=== PATIENT | female | born 1975 | race Caucasian/White ===

== ENCOUNTER 2018-07-29 22:28 | Inpatient (IN) | payer MEDICAID, OTHER ==
[2018-07-29] MEDS ORDERED: Sodium Chloride 0.9% 1,000 ML IV STA (23:02)
[2018-07-29 23:46] LABS: BASO % 0.7 % (0.0-2.0); EOS # 0.1 K/uL (0.0-0.7); HEMOGLOBIN 12.7 g/dL (11.0-16.0); LYMPH # 1.2 K/uL (1.0-4.3); LYMPH % 26.8 % (20.0-40.0); MEAN CELL VOLUME 104.8 fL (81.0-99.0); MEAN CORPUSCULAR HEMOGLOBIN 35.4 pg (27.0-31.0); MEAN CORPUSCULAR HGB CONC 33.8 g/dL (33.0-37.0); MEAN PLATELET VOLUME 10.8 fL (7.2-11.7); MONO # 0.4 K/uL (0.0-0.8); NEUT # 2.8 K/uL (1.8-7.0); NEUT % 62.5 % (50.0-75.0); RBC 3.59 Mil/uL (3.80-5.20); RED CELL DISTRIBUTION WIDTH 13.6 % (11.5-14.5); WHITE BLOOD COUNT 4.4 K/uL (4.8-10.8)
--- NOTE | 2018-07-30 00:03 | C.PDOC ---
History Of Present Illness 42 y/o F c PMHx HTN, DM BIBEMS after patient witnessed by bystanders stumbling and intoxicated. Patient states she fell but denies any pain or injury from it. She does report palpitations, no other symptoms. She denies any other drug use other than alcohol. Denies headache, dyspnea, chest pain, vomiting, abdominal pain, extremity pain. Time Seen by Provider: 07/29/18 22:34 Chief Complaint (Nursing): Substance Abuse Past Medical History Vital Signs: Last Vital Signs Temp 98.6 F 07/29/18 22:33 Pulse 111 H 07/29/18 22:33 Resp 14 07/29/18 22:33 BP 109/72 07/29/18 22:33 Pulse Ox 99 07/30/18 00:05 - Medical History PMH: Diabetes Denies: Chronic Kidney Disease - [facility] Procedures OTH WOUND IRRIGATION (10/10/13) OTHER LOCAL DESTRUC SKIN (03/14/15) OTHER SKIN & SUBQ I D (01/18/15) VACCINATION NEC (01/18/15) Family History: States: Unknown Family Hx - Social History Hx Tobacco Use: No Hx Alcohol Use: Yes Hx Substance Use: No - Immunization History Hx Tetanus Toxoid Vaccination: No Hx Influenza Vaccination: No Hx Pneumococcal Vaccination: No Review Of Systems Except As Marked, All Systems Reviewed And Found Negative. Constitutional: Negative for: Fever Cardiovascular: Negative for: Chest Pain Physical Exam - Physical Exam Additional Physical Exam Comments: Gen: NAD Head: NC/AT Eyes: PERRL ENT: MMM Neck: No midline tenderness Chest: No tenderness CV: Regular rate Lungs: CTA b/l Abd: Soft, NT Back: No midline tenderness Extremities: No edema. FROM x 4. Skin: No rash Neuro: Alert, no focal deficit ED Course And Treatment - Laboratory Results Result Diagrams: 07/29/18 23:36 07/29/18 23:36 O2 Sat by Pulse Oximetry: 99 Medical Decision Making Medical Decision Making: EKG NSR 99 bpm, no ST/T wave changes. FS found to be high. Patient in Disposition - Disposition Disposition: HOSPITALIZED Disposition Time: 00:18 Condition: GUARDED Forms: [facility] (Khmer) - Clinical Impression Clinical Impression: DKA (diabetic ketoacidoses)
[2018-07-30 00:05] LABS: ALB/GLOB RATIO 2.2 (1.0-2.1); ALBUMIN 4.5 g/dL (3.5-5.0); ALT/SGPT 32 U/L (9-52); AST/SGOT 28 U/L (14-36); BLOOD UREA NITROGEN 9 mg/dL (7-17); CALCIUM 9.8 mg/dl (8.6-10.4); GFR NON-AFRICAN AMERICAN > 60
[2018-07-30] MEDS ORDERED: Sodium Chloride 0.9% 1,000 ML IV STA (00:07)
[2018-07-30 00:56] LABS: VENOUS BLOOD GAS BASE EXCESS -6.3 mmol/L (0.0-2.0); VENOUS BLOOD GAS PCO2 40 mmHg (40-60); VENOUS BLOOD GAS PO2 31 mm/Hg (30-55)
[2018-07-30] MEDS ORDERED: Sodium Chloride 0.9% 1,000 ML IV SCH (01:00)
[2018-07-30] MEDS ORDERED: (Novolog Mix 70/30) Insulin Aspart/Insulin Aspar 100 units/ml SC ONE (01:09)
[2018-07-30] MEDS ORDERED: Insulin Detemir 100 units/ml Vial (Levemir) SC ONE (01:11)
[2018-07-30] MEDS ORDERED: Lactated Ringer's 1,000 ML IV ONE ×2 (01:44→01:45)
[2018-07-30 01:55] LABS: B-TYPE NATRIURETIC PEPTIDE 82.7 pg/mL (0-450)
[2018-07-30] MEDS ORDERED: (Novolog) Insulin Aspart, Recombinant 100 u/ml 10 ml vial SC SCH ×2 (02:00→11:30)
[2018-07-30] MEDS ORDERED: (Novolog) Insulin Aspart, Recombinant 100 u/ml 10 ml vial SC ONE (02:03)
--- NOTE | 2018-07-30 02:07 | CP.PCM.CON ---
History of Present Illness - History of Present Illness History of Present Illness: 42 y/o with pmx of DM (7 years) taking insulin and metformin admitted to [facility] with intoxication (+)ETOH and having underlying DM. Patient was noted to have high BGM and (+)BHB (+)AG 25. Patient denies any nausea, denies any abdominal pain. (+)thirsty ROS: (+)polyuria and polydyspia SH: lost her insurace, does not use her insulin regularly Allergies: NKDA Review of Systems - Review of Systems All systems: reviewed and no additional remarkable complaints except Past Patient History - Infectious Disease Hx of Infectious Diseases: None - Tetanus Immunizations Tetanus Immunization: Unknown - Past Medical History & Family History Past Medical History?: Yes - Past Social History Smoking Status: Light Smoker < 10 Cigarettes Daily - PULMONARY Hx Respiratory Disorders: No - NEUROLOGICAL Hx Neurological Disorder: No - HEENT Hx HEENT Problems: No - RENAL Hx Chronic Kidney Disease: No - ENDOCRINE/METABOLIC Hx Diabetes Mellitus Type 1: Yes - HEMATOLOGICAL/ONCOLOGICAL Hx Blood Disorders: No - INTEGUMENTARY Hx Dermatological Problems: No - MUSCULOSKELETAL/RHEUMATOLOGICAL Hx Falls: No - GASTROINTESTINAL Hx Gastrointestinal Disorders: No - GENITOURINARY/GYNECOLOGICAL Hx Genitourinary Disorders: No - PSYCHIATRIC Hx Substance Use: No - SURGICAL HISTORY Hx Surgeries: No Hx Tubal Ligation: Yes Other/Comment: I&D OF LEFT AXILLA 01/21/15 - ANESTHESIA Hx Anesthesia: No Meds Allergies/Adverse Reactions: Allergies Allergy/AdvReac Type Severity Reaction Status Date / Time No Known Allergies Allergy Verified 07/30/18 04:44 - Medications Medications: Current Medications Sodium Chloride (Sodium Chloride 0.9%) 1,000 mls @ 150 mls/hr IV .Q6H40M [facility] Folic Acid 1 mg/ Multivitamins (/Vitamin C 10 ml/ Dextrose) 1,010.2 mls @ 42 mls/hr IV .Q24H [facility] Lactated Ringer's (Lactated Ringer's) 1,000 mls @ 1,000 mls/hr IV .Q1H ONE Stop: 07/30/18 02:43 Lactated Ringer's (Lactated Ringer's) 1,000 mls @ 1,000 mls/hr IV .Q1H ONE Stop: 07/30/18 02:44 Insulin Aspart (Novolog) 0 unit SC Q4H PARVIZ PRN Reason: Protocol Insulin Aspart (Novolog) 2 unit SC ONCE ONE Stop: 07/30/18 02:04 Thiamine HCl (Vitamin B1 Inj) 200 mg IV Q8H [facility] Stop: 07/31/18 17:31 Physical Exam - Head Exam Head Exam: ATRAUMATIC, NORMAL INSPECTION, NORMOCEPHALIC - Eye Exam Eye Exam: EOMI Pupil Exam: NORMAL ACCOMODATION - ENT Exam ENT Exam: Mucous Membranes Moist - Respiratory Exam Respiratory Exam: Clear to Auscultation Bilateral, NORMAL BREATHING PATTERN - Cardiovascular Exam Cardiovascular Exam: Tachycardia, +S1, +S2 - Extremities Exam Extremities exam: Positive for: pedal edema - Neurological Exam Neurological exam: Alert, CN II-XII Intact, Oriented x3 Results - Vital Signs Recent Vital Signs: Last Vital Signs Temp 98.6 F 07/29/18 22:33 Pulse 111 H 07/29/18 22:33 Resp 14 07/29/18 22:33 BP 109/72 07/29/18 22:33 Pulse Ox 99 07/30/18 00:18 - Labs Result Diagrams: 07/30/18 12:26 07/30/18 09:10 Labs: Laboratory Results - last 24 hr 07/29/18 07/29/18 07/29/18 22:57 23:36 23:36 WBC 4.4 L RBC 3.59 L Hgb 12.7 Hct 37.7 MCV 104.8 H D MCH 35.4 H MCHC 33.8 RDW 13.6 Plt Count 138 MPV 10.8 Neut % (Auto) 62.5 Lymph % (Auto) 26.8 [place] % (Auto) 8.0 Eos % (Auto) 2.0 Baso % (Auto) 0.7 Neut # (Auto) 2.8 Lymph # (Auto) 1.2 [place] # (Auto) 0.4 Eos # (Auto) 0.1 Baso # (Auto) 0.0 pO2 VBG pH VBG pCO2 VBG HCO3 VBG Total CO2 VBG O2 Sat (Calc) VBG Base Excess VBG Potassium Glucose Lactate Crit Value Called To Crit Value Called By Crit Value Read Back Blood Gas Notified Time Sodium 140 Potassium 4.2 Chloride 102 Carbon Dioxide 17 L Anion Gap 25 H BUN 9 Creatinine 0.6 L Est GFR ( Amer) > 60 Est GFR (Non-Af Amer) > 60 POC Glucose (mg/dL) 470 H* Random Glucose 611 H* D Calcium 9.8 Magnesium 2.0 Total Bilirubin 0.4 AST 28 ALT 32 Alkaline Phosphatase 96 NT-Pro-B Natriuret Pep Total Protein 6.6 Albumin 4.5 Globulin 2.1 L Albumin/Globulin Ratio 2.2 H Beta HCG, Quant Venous Blood Potassium Alcohol, Quantitative 263 H B-Hydroxybutyrate 2.74 H 07/29/18 07/30/18 07/30/18 23:36 00:39 01:36 WBC RBC Hgb Hct MCV MCH MCHC RDW Plt Count MPV Neut % (Auto) Lymph % (Auto) [place] % (Auto) Eos % (Auto) Baso % (Auto) Neut # (Auto) Lymph # (Auto) [place] # (Auto) Eos # (Auto) Baso # (Auto) pO2 31 VBG pH 7.30 L VBG pCO2 40 VBG HCO3 18.8 VBG Total CO2 20.9 L VBG O2 Sat (Calc) 54.8 VBG Base Excess -6.3 L VBG Potassium 4.0 Glucose 510 H* D Lactate 2.8 H Crit Value Called To Smith reddy rn Crit Value Called By Tran ortega rt Crit Value Read Back Y Blood Gas Notified Time 56 Sodium 142.0 Potassium Chloride 105.0 Carbon Dioxide Anion Gap BUN Creatinine Est GFR ( Amer) Est GFR (Non-Af Amer) POC Glucose (mg/dL) Random Glucose Calcium Magnesium Total Bilirubin AST ALT Alkaline Phosphatase NT-Pro-B Natriuret Pep 82.7 Total Protein Albumin Globulin Albumin/Globulin Ratio Beta HCG, Quant < 2.39 Venous Blood Potassium 4.0 Alcohol, Quantitative B-Hydroxybutyrate 07/30/18 01:56 WBC RBC Hgb Hct MCV MCH MCHC RDW Plt Count MPV Neut % (Auto) Lymph % (Auto) [place] % (Auto) Eos % (Auto) Baso % (Auto) Neut # (Auto) Lymph # (Auto) [place] # (Auto) Eos # (Auto) Baso # (Auto) pO2 VBG pH VBG pCO2 VBG HCO3 VBG Total CO2 VBG O2 Sat (Calc) VBG Base Excess VBG Potassium Glucose Lactate Crit Value Called To Crit Value Called By Crit Value Read Back Blood Gas Notified Time Sodium Potassium Chloride Carbon Dioxide Anion Gap BUN Creatinine Est GFR ( Amer) Est GFR (Non-Af Amer) POC Glucose (mg/dL) 456 H* Random Glucose Calcium Magnesium Total Bilirubin AST ALT Alkaline Phosphatase NT-Pro-B Natriuret Pep Total Protein Albumin Globulin Albumin/Globulin Ratio Beta HCG, Quant Venous Blood Potassium Alcohol, Quantitative B-Hydroxybutyrate Assessment & Plan - Assessment and Plan (Free Text) Assessment: UNcontrolled DM with DKA: will restart home dosage of insulin 40 lantus (+) 10 untis premeal lispro, check HBA1c, and TSH, continue IV hydration -check BGM at 4am (if gap not closed will admit to ICU for insulin ggt) -ETOH abuse: MCV hish: start thiamine, IV bananna bag -continue dvt/put ppx Patient remains hemodynamically stable, not on telemetry in ER. -d/w ER physician. cc time 32 minutes co-ordinating care of above patient - Date & Time Date: 07/30/18 Time: 02:10
[2018-07-30 02:20] LABS: BARBITURATES, UR NEGATIVE (NEGATIVE); BENZODIAZEPINES, UR NEGATIVE (NEGATIVE); OPIATES, UR NEGATIVE (NEGATIVE); PHENCYCLIDINE, UR NEGATIVE (NEGATIVE)
[2018-07-30] MEDS: Thiamine 100 mg/ml Inj IV SCH ×3 (02:54→17:33)
[2018-07-30 04:14] LABS: MEAN CELL VOLUME 103.4 fL (81.0-99.0); MEAN CORPUSCULAR HEMOGLOBIN 35.1 pg (27.0-31.0); MEAN PLATELET VOLUME 11.7 fL (7.2-11.7); RBC 3.42 Mil/uL (3.80-5.20); RED CELL DISTRIBUTION WIDTH 13.7 % (11.5-14.5); WHITE BLOOD COUNT 4.6 K/uL (4.8-10.8)
[2018-07-30 04:30] LABS: ALB/GLOB RATIO 1.6 (1.0-2.1); ALT/SGPT 25 U/L (9-52); AST/SGOT 55 U/L (14-36); BLOOD UREA NITROGEN 8 mg/dL (7-17); CALCIUM 8.2 mg/dl (8.6-10.4); GFR NON-AFRICAN AMERICAN > 60
[2018-07-30] MEDS: Folic Acid 1 MG, Multivitamin (MVI) 10 ML in Dextrose 5% In Water 1,000 ML IV SCH (05:00)
[2018-07-30] MEDS ORDERED: Insulin Human Regular 100 UNIT in Sodium Chloride 0.9% 99 ML IV SCH ×2 (05:15→07:00)
[2018-07-30] MEDS: Dextrose 5%/0.45% NS 1,000 ML IV SCH ×2 (05:58→15:36)
[2018-07-30] MEDS ORDERED: Dextrose 50% SYRINGE Inj (50 ml) IV STA (08:43)
[2018-07-30] MEDS ORDERED: Dextrose 50% SYRINGE Inj (50 ml) IV PRN (08:44)
[2018-07-30] MEDS ORDERED: Glucagon Recombinant 1 mg Inj IM PRN (08:44)
[2018-07-30] MEDS ORDERED: Dextrose 50% SYRINGE Inj (50 ml) ONE (08:49)
[2018-07-30 09:31] LABS: ALB/GLOB RATIO 1.5 (1.0-2.1); ALBUMIN 3.3 g/dL (3.5-5.0); ALT/SGPT 33 U/L (9-52); AST/SGOT 24 U/L (14-36); BLOOD UREA NITROGEN 7 mg/dL (7-17); CALCIUM 8.4 mg/dl (8.6-10.4); GFR NON-AFRICAN AMERICAN > 60
[2018-07-30] MEDS ORDERED: Potassium Chloride 20 mEq/15 ml LIQ UD PO ONE (10:00)
[2018-07-30] MEDS: Pantoprazole 40 mg EC Tab PO SCH (11:07)
[2018-07-30] MEDS ORDERED: Potassium Phosphate 15 MMOLE in Dextrose 5% In Water 250 ML IVPB ONE (11:22)
[2018-07-30] MEDS ORDERED: (Novolog Mix 70/30) Insulin Aspart/Insulin Aspar 100 units/ml SC SCH (11:30)
[2018-07-30] MEDS: Magnesium Sulfate 1 gm in D5W 1 GM/100 ML BAG IVPB SCH ×2 (11:52→12:24)
[2018-07-30 12:30] LABS: BASO % 0.6 % (0.0-2.0); HEMOGLOBIN 11.5 g/dL (11.0-16.0); LYMPH # 1.1 K/uL (1.0-4.3); MONO # 0.7 K/uL (0.0-0.8); WHITE BLOOD COUNT 5.8 K/uL (4.8-10.8)
[2018-07-30 12:37] LABS: EOS % 0.7 % (0.0-4.0); LYMPH % 19.1 % (20.0-40.0); MEAN CELL VOLUME 102.6 fL (81.0-99.0); MEAN CORPUSCULAR HEMOGLOBIN 35.9 pg (27.0-31.0); MEAN CORPUSCULAR HGB CONC 34.9 g/dL (33.0-37.0); MEAN PLATELET VOLUME 10.8 fL (7.2-11.7); MONO % 11.8 % (0.0-10.0); NEUT % 67.8 % (50.0-75.0); NRBC % 0.2 % (0.0-2.0); RBC 3.22 Mil/uL (3.80-5.20); RED CELL DISTRIBUTION WIDTH 13.5 % (11.5-14.5)
--- NOTE | 2018-07-30 12:54 | RAD ---
Date of service: 07/30/2018 HISTORY: dka COMPARISON: Comparison chest 04/10/2013 FINDINGS: LUNGS: Poor inspiration with low lung volumes, crowded bronchovascular markings and mild bibasilar atelectasis. PLEURA: No significant pleural effusion identified, no pneumothorax apparent. CARDIOVASCULAR: Heart appears upper limits of normal/ borderline enlarged likely due to AP positioning and poor inspiration. Incidental note made of a radiopaque density overlying the aortic arch which may be overlying skin surface artifact. Clinical correlation recommended to exclude metallic surgical clip or foreign body OSSEOUS STRUCTURES: No significant abnormalities. VISUALIZED UPPER ABDOMEN: Normal. OTHER FINDINGS: None. IMPRESSION: Poor inspiration with low lung volumes, crowded bronchovascular markings and mild bibasilar atelectasis. See above discussion for additional details, findings and recommendations
[2018-07-30] MEDS: (Novolog) Insulin Aspart, Recombinant 100 u/ml 10 ml vial SC SCH ×3 (13:24→22:00)
--- NOTE | 2018-07-30 14:33 | CP.PCM.HP ---
History of Present Illness - History of Present Illness History of Present Illness: COMPREHENSIVE HISTORY & PHYSICAL EXAM HPI Patient was brought to the emergency room agitated and slightly confused. Evaluation showed the patient had a sugar of 661 with positive ketones beta hydroxy butyric acid positive. Patient was admitted in ICU for DKA. As per the patient patient had some wine before she went for the dinner and during the dinner. Patient took some unknown amount of alcohol and since then patient became more disoriented and agitated. Patient has a history of diabetes on insulin recently has been noncompliant PAST HIST. PERSONAL HIST: Smoking. N Alcohol. N Allergy N Travel_- . FAMILY HIST : ROS : Constitutional: Negative for weight change, chills, night sweats, fatigue and usage of assist device. Eyes: Negative for redness, swelling, itching, discharge, vision changes, blurry vision, double vision, glaucoma, cataracts, Ears: Negative for hearing loss, ringing, , tinnitus, vertigo Nose: Negative for rhinorrhea, stuffiness, sniffing, itching, postnasal drip, discoloration, nasal congestion and epistaxis. Throat: Negative for throat clearing, sore throat, hoarseness, difficulty swallowing and difficulty speaking. Respiratory: Negative for cough, , sputum production, chest tightness, wheezing, pleuritic chest pain ,daytime somnolence, chronic cough, hemoptysis, snoring at night, Cardiovascular: Negative for chest pain, palpitations, orthopnea, PND, Edema of legs, leg cramps, angina, claudication, , irregular heartbeat, Neurology: Negative for irritability, muscle weakness, numbness and tingling, seizures, tremors, migraines, slurred speech, syncope, memory loss, mood changes , recurrent headaches Gastrointestinal: Negative for difficulty swallowing, diarrhea, constipation, black stools, rectal bleeding, nausea, flatulence, reflux, poor appetite, changes in bowel habits, abdominal pain Genitourinary: Negative for frequent urination, hematuria, discharge, incontinence, urinary retention, frequent UTI, Psychiatric: Negative for depression, anxiety/panic, suicidal tendencies, Musculoskeletal: Negative for swollen joints, back pain, , neck pain, morning stiffness of joints, . Skin: Negative for rash, ulcers, itching, dry skin and pigmented lesions. P/E: Constitutional: Appears stated age and in no apparent distress. Head: Normocephalic. Ears: External ear canals patent without inflammation. Tympanic membranes intact with normal light reflex and landmark. Eyes: Pupils are central, bilaterally equal, symmetrical and reacts to light with normal movements and no icterus or pallor. Nose: External nares are patent. Mucosa is pink Mouth-Throat: Good general appearance and condition. No post-pharyngeal/oropharyngeal erythema and tonsillar hypertrophy. Good dental hygiene. Neck-Lymphatic: Neck is supple with normal ROM, no thyromegaly, lymph nodes or masses. JVD is normal with no carotid bruit. Lungs: Clear to percussion and auscultation with bilateral normal air entry. Cardiovascular: S1 and S2 are normal with no murmurs, gallops and rub. GI Exam: No hepatomegaly. Abdomen is soft and non-tender. No Organomegaly , masses or hernias are evident and bowel sounds are normal and active. Neurology: Higher function and all cranial nerves intact, with no gross motor or sensory deficit. Superficial and deep reflexes are normal with downwards planters. No cerebellar deficit with normal gait. Musculoskeletal: No tender spots with normal curvature of the spine with no swelling or restricted ROM of the small and large joints. Extremities: Homans sign absent. Intact pulses with no pitting edema, calf tenderness or skin color changes. Skin: No rash, eruptions or abnormal skin pigmentation LAB/RADIOLOGY: ASSESMENT : Diabetic ketoacidosis with excess amount of alcohol ingestion. History of diabetes on insulin PLAN: Continue treatment as outlined on the order sheet Present on Admission - Present on Admission Any Indicators Present on Admission: No Past Patient History - Infectious Disease Hx of Infectious Diseases: None - Tetanus Immunizations Tetanus Immunization: Unknown - Past Medical History & Family History Past Medical History?: Yes - Past Social History Smoking Status: Light Smoker < 10 Cigarettes Daily - CARDIAC Hx Cardiac Disorders: Yes Hx Hypertension: Yes - PULMONARY Hx Respiratory Disorders: No - NEUROLOGICAL Hx Neurological Disorder: No - HEENT Hx HEENT Problems: No - RENAL Hx Chronic Kidney Disease: No - ENDOCRINE/METABOLIC Hx Endocrine Disorders: Yes Hx Diabetes Mellitus Type 1: Yes - HEMATOLOGICAL/ONCOLOGICAL Hx Blood Disorders: No - INTEGUMENTARY Hx Dermatological Problems: No - MUSCULOSKELETAL/RHEUMATOLOGICAL Hx Musculoskeletal Disorders: Yes Hx Falls: Yes - GASTROINTESTINAL Hx Gastrointestinal Disorders: No - GENITOURINARY/GYNECOLOGICAL Hx Genitourinary Disorders: No - PSYCHIATRIC Hx Psychophysiologic Disorder: No Hx Substance Use: No - SURGICAL HISTORY Hx Surgeries: Yes Hx Tubal Ligation: Yes Other/Comment: I&D OF LEFT AXILLA 01/21/15 - ANESTHESIA Hx Anesthesia: Yes Hx Anesthesia Reactions: No Hx Malignant Hyperthermia: No Has any member of the family had a problem w/ anesthesia?: No Meds Allergies/Adverse Reactions: Allergies Allergy/AdvReac Type Severity Reaction Status Date / Time No Known Allergies Allergy Verified 07/30/18 04:44 Results - Vital Signs Recent Vital Signs: Last Vital Signs Temp 98.5 F 07/30/18 05:45 Pulse 108 H 07/30/18 06:20 Resp 20 07/30/18 06:20 BP 142/79 07/30/18 05:42 Pulse Ox 98 07/30/18 06:20 - Labs Result Diagrams: 07/30/18 12:26 07/30/18 09:10 Labs: Laboratory Results - last 24 hr 07/29/18 07/29/18 07/29/18 22:57 23:36 23:36 WBC 4.4 L RBC 3.59 L Hgb 12.7 Hct 37.7 MCV 104.8 H D MCH 35.4 H MCHC 33.8 RDW 13.6 Plt Count 138 MPV 10.8 Neut % (Auto) 62.5 Lymph % (Auto) 26.8 [place] % (Auto) 8.0 Eos % (Auto) 2.0 Baso % (Auto) 0.7 Neut # (Auto) 2.8 Lymph # (Auto) 1.2 [place] # (Auto) 0.4 Eos # (Auto) 0.1 Baso # (Auto) 0.0 pO2 VBG pH VBG pCO2 VBG HCO3 VBG Total CO2 VBG O2 Sat (Calc) VBG Base Excess VBG Potassium Glucose Lactate Crit Value Called To Crit Value Called By Crit Value Read Back Blood Gas Notified Time Sodium 140 Potassium 4.2 Chloride 102 Carbon Dioxide 17 L Anion Gap 25 H BUN 9 Creatinine 0.6 L Est GFR ( Amer) > 60 Est GFR (Non-Af Amer) > 60 POC Glucose (mg/dL) 470 H* Random Glucose 611 H* D Calcium 9.8 Phosphorus Magnesium 2.0 Total Bilirubin 0.4 AST 28 ALT 32 Alkaline Phosphatase 96 NT-Pro-B Natriuret Pep Total Protein 6.6 Albumin 4.5 Globulin 2.1 L Albumin/Globulin Ratio 2.2 H TSH 3rd Generation Beta HCG, Quant Venous Blood Potassium Urine Opiates Screen Urine Methadone Screen Ur Barbiturates Screen Ur Phencyclidine Scrn Ur Amphetamines Screen U Benzodiazepines Scrn U Oth Cocaine Metabols U Cannabinoids Screen Alcohol, Quantitative 263 H B-Hydroxybutyrate 2.74 H 07/29/18 07/30/18 07/30/18 23:36 00:39 01:36 WBC RBC Hgb Hct MCV MCH MCHC RDW Plt Count MPV Neut % (Auto) Lymph % (Auto) [place] % (Auto) Eos % (Auto) Baso % (Auto) Neut # (Auto) Lymph # (Auto) [place] # (Auto) Eos # (Auto) Baso # (Auto) pO2 31 VBG pH 7.30 L VBG pCO2 40 VBG HCO3 18.8 VBG Total CO2 20.9 L VBG O2 Sat (Calc) 54.8 VBG Base Excess -6.3 L VBG Potassium 4.0 Glucose 510 H* D Lactate 2.8 H Crit Value Called To Smith reddy rn Crit Value Called By Tran ortega rt Crit Value Read Back Y Blood Gas Notified Time 56 Sodium 142.0 Potassium Chloride 105.0 Carbon Dioxide Anion Gap BUN Creatinine Est GFR ( Amer) Est GFR (Non-Af Amer) POC Glucose (mg/dL) Random Glucose Calcium Phosphorus Magnesium Total Bilirubin AST ALT Alkaline Phosphatase NT-Pro-B Natriuret Pep 82.7 Total Protein Albumin Globulin Albumin/Globulin Ratio TSH 3rd Generation 1.07 Beta HCG, Quant < 2.39 Venous Blood Potassium 4.0 Urine Opiates Screen Urine Methadone Screen Ur Barbiturates Screen Ur Phencyclidine Scrn Ur Amphetamines Screen U Benzodiazepines Scrn U Oth Cocaine Metabols U Cannabinoids Screen Alcohol, Quantitative B-Hydroxybutyrate 07/30/18 07/30/18 07/30/18 01:56 01:58 04:09 WBC 4.6 L RBC 3.42 L Hgb 12.0 Hct 35.4 MCV 103.4 H MCH 35.1 H MCHC 34.0 RDW 13.7 Plt Count 161 MPV 11.7 Neut % (Auto) Lymph % (Auto) [place] % (Auto) Eos % (Auto) Baso % (Auto) Neut # (Auto) Lymph # (Auto) [place] # (Auto) Eos # (Auto) Baso # (Auto) pO2 VBG pH VBG pCO2 VBG HCO3 VBG Total CO2 VBG O2 Sat (Calc) VBG Base Excess VBG Potassium Glucose Lactate Crit Value Called To Crit Value Called By Crit Value Read Back Blood Gas Notified Time Sodium Potassium Chloride Carbon Dioxide Anion Gap BUN Creatinine Est GFR ( Amer) Est GFR (Non-Af Amer) POC Glucose (mg/dL) 456 H* Random Glucose Calcium Phosphorus Magnesium Total Bilirubin AST ALT Alkaline Phosphatase NT-Pro-B Natriuret Pep Total Protein Albumin Globulin Albumin/Globulin Ratio TSH 3rd Generation Beta HCG, Quant Venous Blood Potassium Urine Opiates Screen Negative Urine Methadone Screen Negative Ur Barbiturates Screen Negative Ur Phencyclidine Scrn Negative Ur Amphetamines Screen Negative U Benzodiazepines Scrn Negative U Oth Cocaine Metabols Negative U Cannabinoids Screen Negative Alcohol, Quantitative B-Hydroxybutyrate 07/30/18 07/30/18 07/30/18 04:09 05:56 06:53 WBC RBC Hgb Hct MCV MCH MCHC RDW Plt Count MPV Neut % (Auto) Lymph % (Auto) [place] % (Auto) Eos % (Auto) Baso % (Auto) Neut # (Auto) Lymph # (Auto) [place] # (Auto) Eos # (Auto) Baso # (Auto) pO2 VBG pH VBG pCO2 VBG HCO3 VBG Total CO2 VBG O2 Sat (Calc) VBG Base Excess VBG Potassium Glucose Lactate Crit Value Called To Crit Value Called By Crit Value Read Back Blood Gas Notified Time Sodium 144 Potassium 4.9 Chloride 112 H Carbon Dioxide 17 L Anion Gap 20 BUN 8 Creatinine 0.3 L Est GFR ( Amer) > 60 Est GFR (Non-Af Amer) > 60 POC Glucose (mg/dL) 222 H 204 H Random Glucose 242 H Calcium 8.2 L Phosphorus Magnesium Total Bilirubin 1.3 AST 55 H D ALT 25 Alkaline Phosphatase 76 NT-Pro-B Natriuret Pep Total Protein 6.5 Albumin 4.0 Globulin 2.5 Albumin/Globulin Ratio 1.6 TSH 3rd Generation Beta HCG, Quant Venous Blood Potassium Urine Opiates Screen Urine Methadone Screen Ur Barbiturates Screen Ur Phencyclidine Scrn Ur Amphetamines Screen U Benzodiazepines Scrn U Oth Cocaine Metabols U Cannabinoids Screen Alcohol, Quantitative B-Hydroxybutyrate 07/30/18 07/30/1807/30/18 07:59 08:42 09:10 WBC RBC Hgb Hct MCV MCH MCHC RDW Plt Count MPV Neut % (Auto) Lymph % (Auto) [place] % (Auto) Eos % (Auto) Baso % (Auto) Neut # (Auto) Lymph # (Auto) [place] # (Auto) Eos # (Auto) Baso # (Auto) pO2 VBG pH VBG pCO2 VBG HCO3 VBG Total CO2 VBG O2 Sat (Calc) VBG Base Excess VBG Potassium Glucose Lactate Crit Value Called To Crit Value Called By Crit Value Read Back Blood Gas Notified Time Sodium 141 Potassium 3.4 L Chloride 107 Carbon Dioxide 25 Anion Gap 13 BUN 7 Creatinine 0.4 L Est GFR ( Amer) > 60 Est GFR (Non-Af Amer) > 60 POC Glucose (mg/dL) 119 H 54 L Random Glucose 156 H Calcium 8.4 L Phosphorus 1.7 L Magnesium 1.4 L Total Bilirubin 0.3 AST 24 ALT 33 Alkaline Phosphatase 67 NT-Pro-B Natriuret Pep Total Protein 5.5 L Albumin 3.3 L Globulin 2.2 Albumin/Globulin Ratio 1.5 TSH 3rd Generation Beta HCG, Quant Venous Blood Potassium Urine Opiates Screen Urine Methadone Screen Ur Barbiturates Screen Ur Phencyclidine Scrn Ur Amphetamines Screen U Benzodiazepines Scrn U Oth Cocaine Metabols U Cannabinoids Screen Alcohol, Quantitative B-Hydroxybutyrate 07/30/18 07/30/18 07/30/18 09:11 10:00 10:57 WBC RBC Hgb Hct MCV MCH MCHC RDW Plt Count MPV Neut % (Auto) Lymph % (Auto) [place] % (Auto) Eos % (Auto) Baso % (Auto) Neut # (Auto) Lymph # (Auto) [place] # (Auto) Eos # (Auto) Baso # (Auto) pO2 VBG pH VBG pCO2 VBG HCO3 VBG Total CO2 VBG O2 Sat (Calc) VBG Base Excess VBG Potassium Glucose Lactate Crit Value Called To Crit Value Called By Crit Value Read Back Blood Gas Notified Time Sodium Potassium Chloride Carbon Dioxide Anion Gap BUN Creatinine Est GFR ( Amer) Est GFR (Non-Af Amer) POC Glucose (mg/dL) 141 H 99 138 H Random Glucose Calcium Phosphorus Magnesium Total Bilirubin AST ALT Alkaline Phosphatase NT-Pro-B Natriuret Pep Total Protein Albumin Globulin Albumin/Globulin Ratio TSH 3rd Generation Beta HCG, Quant Venous Blood Potassium Urine Opiates Screen Urine Methadone Screen Ur Barbiturates Screen Ur Phencyclidine Scrn Ur Amphetamines Screen U Benzodiazepines Scrn U Oth Cocaine Metabols U Cannabinoids Screen Alcohol, Quantitative B-Hydroxybutyrate 07/30/18 07/30/18 12:00 12:26 WBC 5.8 RBC 3.22 L Hgb 11.5 Hct 33.0 L MCV 102.6 H MCH 35.9 H MCHC 34.9 RDW 13.5 Plt Count 133 MPV 10.8 Neut % (Auto) 67.8 Lymph % (Auto) 19.1 L [place] % (Auto) 11.8 H Eos % (Auto) 0.7 Baso % (Auto) 0.6 Neut # (Auto) 4.0 Lymph # (Auto) 1.1 [place] # (Auto) 0.7 Eos # (Auto) 0.0 Baso # (Auto) 0.0 pO2 VBG pH VBG pCO2 VBG HCO3 VBG Total CO2 VBG O2 Sat (Calc) VBG Base Excess VBG Potassium Glucose Lactate Crit Value Called To Crit Value Called By Crit Value Read Back Blood Gas Notified Time Sodium Potassium Chloride Carbon Dioxide Anion Gap BUN Creatinine Est GFR ( Amer) Est GFR (Non-Af Amer) POC Glucose (mg/dL) 150 H Random Glucose Calcium Phosphorus Magnesium Total Bilirubin AST ALT Alkaline Phosphatase NT-Pro-B Natriuret Pep Total Protein Albumin Globulin Albumin/Globulin Ratio TSH 3rd Generation Beta HCG, Quant Venous Blood Potassium Urine Opiates Screen Urine Methadone Screen Ur Barbiturates Screen Ur Phencyclidine Scrn Ur Amphetamines Screen U Benzodiazepines Scrn U Oth Cocaine Metabols U Cannabinoids Screen Alcohol, Quantitative B-Hydroxybutyrate
--- NOTE | 2018-07-30 16:01 | CP.CCUPN ---
Addendum entered and electronically signed by Rodrigo Mejía DO 07/30/18 16:32: Correction to Physical Exam: Lower Extremity: Positive for: Normal Inspection, NORMAL PULSES, Normal ROM, * Edema (trace - +1 in bilateral LE from feet to bottom 1/3rd of shins)*. Negative for: CALF TENDERNESS, Cyanosis, Tenderness, Erythema Original Note: <Rodrigo Mejía - Last Filed: 07/30/18 15:58> CCU Subjective - Physician Review Subjective (Free Text): 07/30/18 15:58 Patient seen and examined at bedside in ICU. After initiation of Insulin Drip this AM, patient's gap rapidly closed, but patient became rapidly hypoglycemic to 50's, despite being on D5 IV fluids; resolved by turning off drip and giving x1 amp D50 stat. Transitioned to home dose of Levemir 40 units qHS, and Medium dose Aspart sliding scale. Patient was tremulous and feeling malaised during the acutely hypoglycemic episode, but no other complaints prior to or after event. Resting comfortably in bed on re-examination. CCU Objective - Vital Signs / Intake & Output Intake and Output (Last 8hrs): Intake & Output 07/30/18 07/30/18 07/30/18 06:59 14:59 22:59 Intake Total 144 3197.5 204.5 Output Total 350 Balance 144 2847.5 204.5 Weight 70.987 kg Intake: Intake, IV Amount 144 1627.5 204.5 Left AC sideport 2 191.5 62.5 Right AC 42 336 42 left AC 100 800 100 piggyback right AC 300 Oral 0 1570 0 Output: Urine 350 Urine, Voided 350 Other: # Voids Urine, Voided 0 1 # Bowel Movements 0 0 - Physical Exam Head: Positive for: Atraumatic, Normocephalic Pupils: Negative for: Non-Reactive, Pinpoint Extroacular Muscles: Positive for: EOMI Conjunctiva: Positive for: Normal. Negative for: Injected, Icteric Mouth: Positive for: Moist Mucous Membranes, Normal Lips, Normal Tounge. Negative for: Dry, Drooling Pharnyx: Negative for: Muffled/Hoarse Voice, Strider Nose (External): Positive for: Atraumatic. Negative for: Abrasion, Contusion, Laceration Nose (Internal): Positive for: No Active Bleeding. Negative for: Epistaxis Neck: Positive for: Normal Range of Motion, Trachea Midline. Negative for: JVD Respiratory/Chest: Positive for: Clear to Auscultation, Good Air Exchange. Negative for: Respiratory Distress, Accessory Muscle Use, Wheezes, Rales, Rhonchi Cardiovascular: Positive for: Peripheal Pulses Present (+2 radials bilaterally, faintly palpable bilateral dorsalis pedis due to mild LE edema), Tachycardic. Negative for: Regular Rate and Rhythm, Irregular Rhythm, Bradycardic Abdomen: Positive for: Normal Bowel Sounds. Negative for: Tenderness, Distention Upper Extremity: Positive for: Normal Inspection, Normal ROM, NORMAL PULSES. Negative for: Cyanosis, Edema, Tenderness, Swelling, Erythema, Deformity Lower Extremity: Positive for: Normal Inspection, NORMAL PULSES, Normal ROM. Negative for: Edema, CALF TENDERNESS, Cyanosis, Tenderness, Swelling, Erythema Neurological: Positive for: GCS=15, Speech Normal, Motor Func Grossly Intact Skin: Positive for: Warm, Dry, Normal Color. Negative for: Rashes Psychiatric: Positive for: Alert, Oriented x 3 - Medications Active Medications: Active Medications Generic Name Dose Route Start Last Admin Trade Name Freq PRN Reason Stop Dose Admin Dextrose 0 ml 07/30/18 08:44 Dextrose 50% Inj IV STAT PRN Hypoglycemia Protocol Protocol Dextrose 0 gm 07/30/18 08:44 Glutose 15 PO ONCE PRN Hypoglycemia Protocol Protocol Glucagon 0 mg 07/30/18 08:44 Glucagen Diagnostic Kit IM STAT PRN Hypoglycemia Protocol Protocol Folic Acid 1 mg/ Multivitamins 1,010.2 mls @ 42 mls/hr 07/30/18 01:30 05:00 /Vitamin C 10 ml/ Dextrose IV 42 mls/hr .Q24H PARVIZ Administration Dextrose/Sodium Chloride 1,000 mls @ 100 mls/hr 07/30/18 05:15 07/30/18 15:36 Dextrose 5%/0.45% Ns 1000 Ml IV 100 mls/hr .Q10H PARVIZ Administration Dextrose 1,000 mls @ 0 mls/hr 07/30/18 08:44 Dextrose 5% In Water 1000 Ml IV .Q0M PRN Hypoglycemia Protocol Protocol Per Protocol Potassium Phosphate 15 mmole/ 255 mls @ 42.5 mls/hr 07/30/18 11:22 07/30/18 12:13 Dextrose IVPB 07/30/18 17:21 42.5 mls/hr ONCE ONE Administration Insulin Aspart 0 unit 07/30/18 13:16 07/30/18 13:24 Novolog SC 3 unit ACHS [facility] Administration Protocol Insulin Detemir 40 unit 07/30/18 22:00 Levemir SC HS PARVIZ Pantoprazole Sodium 40 mg 07/30/18 10:30 07/30/18 11:07 Protonix Ec Tab PO 40 mg DAILY PAR[facility]Z Administration Thiamine HCl 200 mg 07/30/18 01:30 07/30/18 10:16 Vitamin B1 Inj IV 07/31/18 17:31 200 mg Q8H PARVIZ Administration - Patient Studies Lab Studies: Lab Studies 07/30/18 07/30/18 07/30/18 Range/Units 12:26 12:00 10:57 WBC 5.8 (4.8-10.8) K/uL RBC 3.22 L (3.80-5.20) Mil/uL Hgb 11.5 (11.0-16.0) g/dL Hct 33.0 L (34.0-47.0) % MCV 102.6 H (81.0-99.0) fL MCH 35.9 H (27.0-31.0) pg MCHC 34.9 (33.0-37.0) g/dL RDW 13.5 (11.5-14.5) % Plt Count 133 (130-400) K/uL MPV 10.8 (7.2-11.7) fL Neut % (Auto) 67.8 (50.0-75.0) % Lymph % (Auto) 19.1 L (20.0-40.0) % Sevier % (Auto) 11.8 H (0.0-10.0) % Eos % (Auto) 0.7 (0.0-4.0) % Baso % (Auto) 0.6 (0.0-2.0) % Neut # (Auto) 4.0 (1.8-7.0) K/uL Lymph # (Auto) 1.1 (1.0-4.3) K/uL Sevier # (Auto) 0.7 (0.0-0.8) K/uL Eos # (Auto) 0.0 (0.0-0.7) K/uL Baso # (Auto) 0.0 (0.0-0.2) K/uL pO2 (30-55) mm/Hg VBG pH (7.32-7.43) VBG pCO2 (40-60) mmHg VBG HCO3 mmol/L VBG Total CO2 (22-28) mmol/L VBG O2 Sat (Calc) (40-65) % VBG Base Excess (0.0-2.0) mmol/L VBG Potassium (3.6-5.2) mmol/L Glucose (65-105) mg/dl Lactate (0.7-2.1) mmol/L Crit Value Called To Crit Value Called By Crit Value Read Back Blood Gas Notified Time Sodium (132-148) mmol/L Potassium (3.6-5.2) mmol/L Chloride (98-107) mmol/L Carbon Dioxide (22-30) mmol/L Anion Gap (10-20) BUN (7-17) mg/dL Creatinine (0.7-1.2) mg/dL Est GFR ( Amer) Est GFR (Non-Af Amer) POC Glucose (mg/dL) 150 H 138 H (65-110) mg/dL Random Glucose (65-105) mg/dL Calcium (8.6-10.4) mg/dl Phosphorus (2.5-4.5) mg/dL Magnesium (1.6-2.3) mg/dL Total Bilirubin (0.2-1.3) mg/dL AST (14-36) U/L ALT (9-52) U/L Alkaline Phosphatase (38-126) U/L NT-Pro-B Natriuret Pep (0-450) pg/mL Total Protein (6.3-8.3) g/dL Albumin (3.5-5.0) g/dL Globulin (2.2-3.9) gm/dL Albumin/Globulin Ratio (1.0-2.1) TSH 3rd Generation (0.46-4.68) mIU/L Beta HCG, Quant mIU/ML Venous Blood Potassium (3.6-5.2) mmol/L Urine Opiates Screen (NEGATIVE) Urine Methadone Screen (NEGATIVE) Ur Barbiturates Screen (NEGATIVE) Ur Phencyclidine Scrn (NEGATIVE) Ur Amphetamines Screen (NEGATIVE) U Benzodiazepines Scrn (NEGATIVE) U Oth Cocaine Metabols (NEGATIVE) U Cannabinoids Screen (NEGATIVE) Alcohol, Quantitative (0-10) mg/dl B-Hydroxybutyrate (0.02-0.27) mM 07/30/18 07/30/18 07/30/18 Range/Units 10:00 09:11 09:10 WBC (4.8-10.8) K/uL RBC (3.80-5.20) Mil/uL Hgb (11.0-16.0) g/dL Hct (34.0-47.0) % MCV (81.0-99.0) fL MCH (27.0-31.0) pg MCHC (33.0-37.0) g/dL RDW (11.5-14.5) % Plt Count (130-400) K/uL MPV (7.2-11.7) fL Neut % (Auto) (50.0-75.0) % Lymph % (Auto) (20.0-40.0) % Sevier % (Auto) (0.0-10.0) % Eos % (Auto) (0.0-4.0) % Baso % (Auto) (0.0-2.0) % Neut # (Auto) (1.8-7.0) K/uL Lymph # (Auto) (1.0-4.3) K/uL Sevier # (Auto) (0.0-0.8) K/uL Eos # (Auto) (0.0-0.7) K/uL Baso # (Auto) (0.0-0.2) K/uL pO2 (30-55) mm/Hg VBG pH (7.32-7.43) VBG pCO2 (40-60) mmHg VBG HCO3 mmol/L VBG Total CO2 (22-28) mmol/L VBG O2 Sat (Calc) (40-65) % VBG Base Excess (0.0-2.0) mmol/L VBG Potassium (3.6-5.2) mmol/L Glucose (65-105) mg/dl Lactate (0.7-2.1) mmol/L Crit Value Called To Crit Value Called By Crit Value Read Back Blood Gas Notified Time Sodium 141 (132-148) mmol/L Potassium 3.4 L (3.6-5.2) mmol/L Chloride 107 (98-107) mmol/L Carbon Dioxide 25 (22-30) mmol/L Anion Gap 13 (10-20) BUN 7 (7-17) mg/dL Creatinine 0.4 L (0.7-1.2) mg/dL Est GFR ( Amer) > 60 Est GFR (Non-Af Amer) > 60 POC Glucose (mg/dL) 99 141 H (65-110) mg/dL Random Glucose 156 H (65-105) mg/dL Calcium 8.4 L (8.6-10.4) mg/dl Phosphorus 1.7 L (2.5-4.5) mg/dL Magnesium 1.4 L (1.6-2.3) mg/dL Total Bilirubin 0.3 (0.2-1.3) mg/dL AST 24 (14-36) U/L ALT 33 (9-52) U/L Alkaline Phosphatase 67 (38-126) U/L NT-Pro-B Natriuret Pep (0-450) pg/mL Total Protein 5.5 L (6.3-8.3) g/dL Albumin 3.3 L (3.5-5.0) g/dL Globulin 2.2 (2.2-3.9) gm/dL Albumin/Globulin Ratio 1.5 (1.0-2.1) TSH 3rd Generation (0.46-4.68) mIU/L Beta HCG, Quant mIU/ML Venous Blood Potassium (3.6-5.2) mmol/L Urine Opiates Screen (NEGATIVE) Urine Methadone Screen (NEGATIVE) Ur Barbiturates Screen (NEGATIVE) Ur Phencyclidine Scrn (NEGATIVE) Ur Amphetamines Screen (NEGATIVE) U Benzodiazepines Scrn (NEGATIVE) U Oth Cocaine Metabols (NEGATIVE) U Cannabinoids Screen (NEGATIVE) Alcohol, Quantitative (0-10) mg/dl B-Hydroxybutyrate (0.02-0.27) mM 07/30/18 07/30/18 07/30/18 Range/Units 08:42 07:59 06:53 WBC (4.8-10.8) K/uL RBC (3.80-5.20) Mil/uL Hgb (11.0-16.0) g/dL Hct (34.0-47.0) % MCV (81.0-99.0) fL MCH (27.0-31.0) pg MCHC (33.0-37.0) g/dL RDW (11.5-14.5) % Plt Count (130-400) K/uL MPV (7.2-11.7) fL Neut % (Auto) (50.0-75.0) % Lymph % (Auto) (20.0-40.0) % Sevier % (Auto) (0.0-10.0) % Eos % (Auto) (0.0-4.0) % Baso % (Auto) (0.0-2.0) % Neut # (Auto) (1.8-7.0) K/uL Lymph # (Auto) (1.0-4.3) K/uL Sevier # (Auto) (0.0-0.8) K/uL Eos # (Auto) (0.0-0.7) K/uL Baso # (Auto) (0.0-0.2) K/uL pO2 (30-55) mm/Hg VBG pH (7.32-7.43) VBG pCO2 (40-60) mmHg VBG HCO3 mmol/L VBG Total CO2 (22-28) mmol/L VBG O2 Sat (Calc) (40-65) % VBG Base Excess (0.0-2.0) mmol/L VBG Potassium (3.6-5.2) mmol/L Glucose (65-105) mg/dl Lactate (0.7-2.1) mmol/L Crit Value Called To Crit Value Called By Crit Value Read Back Blood Gas Notified Time Sodium (132-148) mmol/L Potassium (3.6-5.2) mmol/L Chloride (98-107) mmol/L Carbon Dioxide (22-30) mmol/L Anion Gap (10-20) BUN (7-17) mg/dL Creatinine (0.7-1.2) mg/dL Est GFR ( Amer) Est GFR (Non-Af Amer) POC Glucose (mg/dL) 54 L 119 H 204 H (65-110) mg/dL Random Glucose (65-105) mg/dL Calcium (8.6-10.4) mg/dl Phosphorus (2.5-4.5) mg/dL Magnesium (1.6-2.3) mg/dL Total Bilirubin (0.2-1.3) mg/dL AST (14-36) U/L ALT (9-52) U/L Alkaline Phosphatase (38-126) U/L NT-Pro-B Natriuret Pep (0-450) pg/mL Total Protein (6.3-8.3) g/dL Albumin (3.5-5.0) g/dL Globulin (2.2-3.9) gm/dL Albumin/Globulin Ratio (1.0-2.1) TSH 3rd Generation (0.46-4.68) mIU/L Beta HCG, Quant mIU/ML Venous Blood Potassium (3.6-5.2) mmol/L Urine Opiates Screen (NEGATIVE) Urine Methadone Screen (NEGATIVE) Ur Barbiturates Screen (NEGATIVE) Ur Phencyclidine Scrn (NEGATIVE) Ur Amphetamines Screen (NEGATIVE) U Benzodiazepines Scrn (NEGATIVE) U Oth Cocaine Metabols (NEGATIVE) U Cannabinoids Screen (NEGATIVE) Alcohol, Quantitative (0-10) mg/dl B-Hydroxybutyrate (0.02-0.27) mM 07/30/18 07/30/18 07/30/18 Range/Units 05:56 04:09 04:09 WBC 4.6 L (4.8-10.8) K/uL RBC 3.42 L (3.80-5.20) Mil/uL Hgb 12.0 (11.0-16.0) g/dL Hct 35.4 (34.0-47.0) % MCV 103.4 H (81.0-99.0) fL MCH 35.1 H (27.0-31.0) pg MCHC 34.0 (33.0-37.0) g/dL RDW 13.7 (11.5-14.5) % Plt Count 161 (130-400) K/uL MPV 11.7 (7.2-11.7) fL Neut % (Auto) (50.0-75.0) % Lymph % (Auto) (20.0-40.0) % Sevier % (Auto) (0.0-10.0) % Eos % (Auto) (0.0-4.0) % Baso % (Auto) (0.0-2.0) % Neut # (Auto) (1.8-7.0) K/uL Lymph # (Auto) (1.0-4.3) K/uL Sevier # (Auto) (0.0-0.8) K/uL Eos # (Auto) (0.0-0.7) K/uL Baso # (Auto) (0.0-0.2) K/uL pO2 (30-55) mm/Hg VBG pH (7.32-7.43) VBG pCO2 (40-60) mmHg VBG HCO3 mmol/L VBG Total CO2 (22-28) mmol/L VBG O2 Sat (Calc) (40-65) % VBG Base Excess (0.0-2.0) mmol/L VBG Potassium (3.6-5.2) mmol/L Glucose (65-105) mg/dl Lactate (0.7-2.1) mmol/L Crit Value Called To Crit Value Called By Crit Value Read Back Blood Gas Notified Time Sodium 144 (132-148) mmol/L Potassium 4.9 (3.6-5.2) mmol/L Chloride 112 H (98-107) mmol/L Carbon Dioxide 17 L (22-30) mmol/L Anion Gap 20 (10-20) BUN 8 (7-17) mg/dL Creatinine 0.3 L (0.7-1.2) mg/dL Est GFR ( Amer) > 60 Est GFR (Non-Af Amer) > 60 POC Glucose (mg/dL) 222 H (65-110) mg/dL Random Glucose 242 H (65-105) mg/dL Calcium 8.2 L (8.6-10.4) mg/dl Phosphorus (2.5-4.5) mg/dL Magnesium (1.6-2.3) mg/dL Total Bilirubin 1.3 (0.2-1.3) mg/dL AST 55 H D (14-36) U/L ALT 25 (9-52) U/L Alkaline Phosphatase 76 (38-126) U/L NT-Pro-B Natriuret Pep (0-450) pg/mL Total Protein 6.5 (6.3-8.3) g/dL Albumin 4.0 (3.5-5.0) g/dL Globulin 2.5 (2.2-3.9) gm/dL Albumin/Globulin Ratio 1.6 (1.0-2.1) TSH 3rd Generation (0.46-4.68) mIU/L Beta HCG, Quant mIU/ML Venous Blood Potassium (3.6-5.2) mmol/L Urine Opiates Screen (NEGATIVE) Urine Methadone Screen (NEGATIVE) Ur Barbiturates Screen (NEGATIVE) Ur Phencyclidine Scrn (NEGATIVE) Ur Amphetamines Screen (NEGATIVE) U Benzodiazepines Scrn (NEGATIVE) U Oth Cocaine Metabols (NEGATIVE) U Cannabinoids Screen (NEGATIVE) Alcohol, Quantitative (0-10) mg/dl B-Hydroxybutyrate (0.02-0.27) mM 07/30/18 07/30/18 07/30/18 Range/Units 01:58 01:56 01:36 WBC (4.8-10.8) K/uL RBC (3.80-5.20) Mil/uL Hgb (11.0-16.0) g/dL Hct (34.0-47.0) % MCV (81.0-99.0) fL MCH (27.0-31.0) pg MCHC (33.0-37.0) g/dL RDW (11.5-14.5) % Plt Count (130-400) K/uL MPV (7.2-11.7) fL Neut % (Auto) (50.0-75.0) % Lymph % (Auto) (20.0-40.0) % Sevier % (Auto) (0.0-10.0) % Eos % (Auto) (0.0-4.0) % Baso % (Auto) (0.0-2.0) % Neut # (Auto) (1.8-7.0) K/uL Lymph # (Auto) (1.0-4.3) K/uL Sevier # (Auto) (0.0-0.8) K/uL Eos # (Auto) (0.0-0.7) K/uL Baso # (Auto) (0.0-0.2) K/uL pO2 (30-55) mm/Hg VBG pH (7.32-7.43) VBG pCO2 (40-60) mmHg VBG HCO3 mmol/L VBG Total CO2 (22-28) mmol/L VBG O2 Sat (Calc) (40-65) % VBG Base Excess (0.0-2.0) mmol/L VBG Potassium (3.6-5.2) mmol/L Glucose (65-105) mg/dl Lactate (0.7-2.1) mmol/L Crit Value Called To Crit Value Called By Crit Value Read Back Blood Gas Notified Time Sodium (132-148) mmol/L Potassium (3.6-5.2) mmol/L Chloride (98-107) mmol/L Carbon Dioxide (22-30) mmol/L Anion Gap (10-20) BUN (7-17) mg/dL Creatinine (0.7-1.2) mg/dL Est GFR ( Amer) Est GFR (Non-Af Amer) POC Glucose (mg/dL) 456 H* (65-110) mg/dL Random Glucose (65-105) mg/dL Calcium (8.6-10.4) mg/dl Phosphorus (2.5-4.5) mg/dL Magnesium (1.6-2.3) mg/dL Total Bilirubin (0.2-1.3) mg/dL AST (14-36) U/L ALT (9-52) U/L Alkaline Phosphatase (38-126) U/L NT-Pro-B Natriuret Pep 82.7 (0-450) pg/mL Total Protein (6.3-8.3) g/dL Albumin (3.5-5.0) g/dL Globulin (2.2-3.9) gm/dL Albumin/Globulin Ratio (1.0-2.1) TSH 3rd Generation 1.07 (0.46-4.68) mIU/L Beta HCG, Quant mIU/ML Venous Blood Potassium (3.6-5.2) mmol/L Urine Opiates Screen Negative (NEGATIVE) Urine Methadone Screen Negative (NEGATIVE) Ur Barbiturates Screen Negative (NEGATIVE) Ur Phencyclidine Scrn Negative (NEGATIVE) Ur Amphetamines Screen Negative (NEGATIVE) U Benzodiazepines Scrn Negative (NEGATIVE) U Oth Cocaine Metabols Negative (NEGATIVE) U Cannabinoids Screen Negative (NEGATIVE) Alcohol, Quantitative (0-10) mg/dl B-Hydroxybutyrate (0.02-0.27) mM 07/30/18 07/29/18 07/29/18 Range/Units 00:39 23:36 23:36 WBC (4.8-10.8) K/uL RBC (3.80-5.20) Mil/uL Hgb (11.0-16.0) g/dL Hct (34.0-47.0) % MCV (81.0-99.0) fL MCH (27.0-31.0) pg MCHC (33.0-37.0) g/dL RDW (11.5-14.5) % Plt Count (130-400) K/uL MPV (7.2-11.7) fL Neut % (Auto) (50.0-75.0) % Lymph % (Auto) (20.0-40.0) % Sevier % (Auto) (0.0-10.0) % Eos % (Auto) (0.0-4.0) % Baso % (Auto) (0.0-2.0) % Neut # (Auto) (1.8-7.0) K/uL Lymph # (Auto) (1.0-4.3) K/uL Sevier # (Auto) (0.0-0.8) K/uL Eos # (Auto) (0.0-0.7) K/uL Baso # (Auto) (0.0-0.2) K/uL pO2 31 (30-55) mm/Hg VBG pH 7.30 L (7.32-7.43) VBG pCO2 40 (40-60) mmHg VBG HCO3 18.8 mmol/L VBG Total CO2 20.9 L (22-28) mmol/L VBG O2 Sat (Calc) 54.8 (40-65) % VBG Base Excess -6.3 L (0.0-2.0) mmol/L VBG Potassium 4.0 (3.6-5.2) mmol/L Glucose 510 H* D (65-105) mg/dl Lactate 2.8 H (0.7-2.1) mmol/L Crit Value Called To Smith reddy rn Crit Value Called By Tran ortega rt Crit Value Read Back Y Blood Gas Notified Time 56 Sodium 142.0 140 (132-148) mmol/L Potassium 4.2 (3.6-5.2) mmol/L Chloride 105.0 102 (98-107) mmol/L Carbon Dioxide 17 L (22-30) mmol/L Anion Gap 25 H (10-20) BUN 9 (7-17) mg/dL Creatinine 0.6 L (0.7-1.2) mg/dL Est GFR ( Amer) > 60 Est GFR (Non-Af Amer) > 60 POC Glucose (mg/dL) (65-110) mg/dL Random Glucose 611 H* D (65-105) mg/dL Calcium 9.8 (8.6-10.4) mg/dl Phosphorus (2.5-4.5) mg/dL Magnesium 2.0 (1.6-2.3) mg/dL Total Bilirubin 0.4 (0.2-1.3) mg/dL AST 28 (14-36) U/L ALT 32 (9-52) U/L Alkaline Phosphatase 96 (38-126) U/L NT-Pro-B Natriuret Pep (0-450) pg/mL Total Protein 6.6 (6.3-8.3) g/dL Albumin 4.5 (3.5-5.0) g/dL Globulin 2.1 L (2.2-3.9) gm/dL Albumin/Globulin Ratio 2.2 H (1.0-2.1) TSH 3rd Generation (0.46-4.68) mIU/L Beta HCG, Quant < 2.39 mIU/ML Venous Blood Potassium 4.0 (3.6-5.2) mmol/L Urine Opiates Screen (NEGATIVE) Urine Methadone Screen (NEGATIVE) Ur Barbiturates Screen (NEGATIVE) Ur Phencyclidine Scrn (NEGATIVE) Ur Amphetamines Screen (NEGATIVE) U Benzodiazepines Scrn (NEGATIVE) U Oth Cocaine Metabols (NEGATIVE) U Cannabinoids Screen (NEGATIVE) Alcohol, Quantitative 263 H (0-10) mg/dl B-Hydroxybutyrate 2.74 H (0.02-0.27) mM 08/31/18 08/31/18 Range/Units 23:36 22:57 WBC 4.4 L (4.8-10.8) K/uL RBC 3.59 L (3.80-5.20) Mil/uL Hgb 12.7 (11.0-16.0) g/dL Hct 37.7 (34.0-47.0) % MCV 104.8 H D (81.0-99.0) fL MCH 35.4 H (27.0-31.0) pg MCHC 33.8 (33.0-37.0) g/dL RDW 13.6 (11.5-14.5) % Plt Count 138 (130-400) K/uL MPV 10.8 (7.2-11.7) fL Neut % (Auto) 62.5 (50.0-75.0) % Lymph % (Auto) 26.8 (20.0-40.0) % Sevier % (Auto) 8.0 (0.0-10.0) % Eos % (Auto) 2.0 (0.0-4.0) % Baso % (Auto) 0.7 (0.0-2.0) % Neut # (Auto) 2.8 (1.8-7.0) K/uL Lymph # (Auto) 1.2 (1.0-4.3) K/uL [place]vier # (Auto) 0.4 (0.0-0.8) K/uL Eos # (Auto) 0.1 (0.0-0.7) K/uL Baso # (Auto) 0.0 (0.0-0.2) K/uL pO2 (30-55) mm/Hg VBG pH (7.32-7.43) VBG pCO2 (40-60) mmHg VBG HCO3 mmol/L VBG Total CO2 (22-28) mmol/L VBG O2 Sat (Calc) (40-65) % VBG Base Excess (0.0-2.0) mmol/L VBG Potassium (3.6-5.2) mmol/L Glucose (65-105) mg/dl Lactate (0.7-2.1) mmol/L Crit Value Called To Crit Value Called By Crit Value Read Back Blood Gas Notified Time Sodium (132-148) mmol/L Potassium (3.6-5.2) mmol/L Chloride (98-107) mmol/L Carbon Dioxide (22-30) mmol/L Anion Gap (10-20) BUN (7-17) mg/dL Creatinine (0.7-1.2) mg/dL Est GFR ( Amer) Est GFR (Non-Af Amer) POC Glucose (mg/dL) 470 H* (65-110) mg/dL Random Glucose (65-105) mg/dL Calcium (8.6-10.4) mg/dl Phosphorus (2.5-4.5) mg/dL Magnesium (1.6-2.3) mg/dL Total Bilirubin (0.2-1.3) mg/dL AST (14-36) U/L ALT (9-52) U/L Alkaline Phosphatase (38-126) U/L NT-Pro-B Natriuret Pep (0-450) pg/mL Total Protein (6.3-8.3) g/dL Albumin (3.5-5.0) g/dL Globulin (2.2-3.9) gm/dL Albumin/Globulin Ratio (1.0-2.1) TSH 3rd Generation (0.46-4.68) mIU/L Beta HCG, Quant mIU/ML Venous Blood Potassium (3.6-5.2) mmol/L Urine Opiates Screen (NEGATIVE) Urine Methadone Screen (NEGATIVE) Ur Barbiturates Screen (NEGATIVE) Ur Phencyclidine Scrn (NEGATIVE) Ur Amphetamines Screen (NEGATIVE) U Benzodiazepines Scrn (NEGATIVE) U Oth Cocaine Metabols (NEGATIVE) U Cannabinoids Screen (NEGATIVE) Alcohol, Quantitative (0-10) mg/dl B-Hydroxybutyrate (0.02-0.27) mM Laboratory Results - last 24 hr 07/29/18 07/29/18 07/29/18 22:57 23:36 23:36 WBC 4.4 L RBC 3.59 L Hgb 12.7 Hct 37.7 MCV 104.8 H D MCH 35.4 H MCHC 33.8 RDW 13.6 Plt Count 138 MPV 10.8 Neut % (Auto) 62.5 Lymph % (Auto) 26.8 Sevier % (Auto) 8.0 Eos % (Auto) 2.0 Baso % (Auto) 0.7 Neut # (Auto) 2.8 Lymph # (Auto) 1.2 [place] # (Auto) 0.4 Eos # (Auto) 0.1 Baso # (Auto) 0.0 pO2 VBG pH VBG pCO2 VBG HCO3 VBG Total CO2 VBG O2 Sat (Calc) VBG Base Excess VBG Potassium Glucose Lactate Crit Value Called To Crit Value Called By Crit Value Read Back Blood Gas Notified Time Sodium 140 Potassium 4.2 Chloride 102 Carbon Dioxide 17 L Anion Gap 25 H BUN 9 Creatinine 0.6 L Est GFR ( Amer) > 60 Est GFR (Non-Af Amer) > 60 POC Glucose (mg/dL) 470 H* Random Glucose 611 H* D Calcium 9.8 Phosphorus Magnesium 2.0 Total Bilirubin 0.4 AST 28 ALT 32 Alkaline Phosphatase 96 NT-Pro-B Natriuret Pep Total Protein 6.6 Albumin 4.5 Globulin 2.1 L Albumin/Globulin Ratio 2.2 H TSH 3rd Generation Beta HCG, Quant Venous Blood Potassium Urine Opiates Screen Urine Methadone Screen Ur Barbiturates Screen Ur Phencyclidine Scrn Ur Amphetamines Screen U Benzodiazepines Scrn U Oth Cocaine Metabols U Cannabinoids Screen Alcohol, Quantitative 263 H B-Hydroxybutyrate 2.74 H 07/29/18 07/30/18 07/30/18 23:36 00:39 01:36 WBC RBC Hgb Hct MCV MCH MCHC RDW Plt Count MPV Neut % (Auto) Lymph % (Auto) [place] % (Auto) Eos % (Auto) Baso % (Auto) Neut # (Auto) Lymph # (Auto) [place] # (Auto) Eos # (Auto) Baso # (Auto) pO2 31 VBG pH 7.30 L VBG pCO2 40 VBG HCO3 18.8 VBG Total CO2 20.9 L VBG O2 Sat (Calc) 54.8 VBG Base Excess -6.3 L VBG Potassium 4.0 Glucose 510 H* D Lactate 2.8 H Crit Value Called To Smith reddy rn Crit Value Called By Tran ortega rt Crit Value Read Back Y Blood Gas Notified Time 56 Sodium 142.0 Potassium Chloride 105.0 Carbon Dioxide Anion Gap BUN Creatinine Est GFR ( Amer) Est GFR (Non-Af Amer) POC Glucose (mg/dL) Random Glucose Calcium Phosphorus Magnesium Total Bilirubin AST ALT Alkaline Phosphatase NT-Pro-B Natriuret Pep 82.7 Total Protein Albumin Globulin Albumin/Globulin Ratio TSH 3rd Generation 1.07 Beta HCG, Quant < 2.39 Venous Blood Potassium 4.0 Urine Opiates Screen Urine Methadone Screen Ur Barbiturates Screen Ur Phencyclidine Scrn Ur Amphetamines Screen U Benzodiazepines Scrn U Oth Cocaine Metabols U Cannabinoids Screen Alcohol, Quantitative B-Hydroxybutyrate 07/30/18 07/30/18 07/30/18 01:56 01:58 04:09 WBC 4.6 L RBC 3.42 L Hgb 12.0 Hct 35.4 MCV 103.4 H MCH 35.1 H MCHC 34.0 RDW 13.7 Plt Count 161 MPV 11.7 Neut % (Auto) Lymph % (Auto) [place] % (Auto) Eos % (Auto) Baso % (Auto) Neut # (Auto) Lymph # (Auto) [place] # (Auto) Eos # (Auto) Baso # (Auto) pO2 VBG pH VBG pCO2 VBG HCO3 VBG Total CO2 VBG O2 Sat (Calc) VBG Base Excess VBG Potassium Glucose Lactate Crit Value Called To Crit Value Called By Crit Value Read Back Blood Gas Notified Time Sodium Potassium Chloride Carbon Dioxide Anion Gap BUN Creatinine Est GFR ( Amer) Est GFR (Non-Af Amer) POC Glucose (mg/dL) 456 H* Random Glucose Calcium Phosphorus Magnesium Total Bilirubin AST ALT Alkaline Phosphatase NT-Pro-B Natriuret Pep Total Protein Albumin Globulin Albumin/Globulin Ratio TSH 3rd Generation Beta HCG, Quant Venous Blood Potassium Urine Opiates Screen Negative Urine Methadone Screen Negative Ur Barbiturates Screen Negative Ur Phencyclidine Scrn Negative Ur Amphetamines Screen Negative U Benzodiazepines Scrn Negative U Oth Cocaine Metabols Negative U Cannabinoids Screen Negative Alcohol, Quantitative B-Hydroxybutyrate 07/30/18 07/30/18 07/30/18 04:09 05:56 06:53 WBC RBC Hgb Hct MCV MCH MCHC RDW Plt Count MPV Neut % (Auto) Lymph % (Auto) [place] % (Auto) Eos % (Auto) Baso % (Auto) Neut # (Auto) Lymph # (Auto) [place] # (Auto) Eos # (Auto) Baso # (Auto) pO2 VBG pH VBG pCO2 VBG HCO3 VBG Total CO2 VBG O2 Sat (Calc) VBG Base Excess VBG Potassium Glucose Lactate Crit Value Called To Crit Value Called By Crit Value Read Back Blood Gas Notified Time Sodium 144 Potassium 4.9 Chloride 112 H Carbon Dioxide 17 L Anion Gap 20 BUN 8 Creatinine 0.3 L Est GFR ( Amer) > 60 Est GFR (Non-Af Amer) > 60 POC Glucose (mg/dL) 222 H 204 H Random Glucose 242 H Calcium 8.2 L Phosphorus Magnesium Total Bilirubin 1.3 AST 55 H D ALT 25 Alkaline Phosphatase 76 NT-Pro-B Natriuret Pep Total Protein 6.5 Albumin 4.0 Globulin 2.5 Albumin/Globulin Ratio 1.6 TSH 3rd Generation Beta HCG, Quant Venous Blood Potassium Urine Opiates Screen Urine Methadone Screen Ur Barbiturates Screen Ur Phencyclidine Scrn Ur Amphetamines Screen U Benzodiazepines Scrn U Oth Cocaine Metabols U Cannabinoids Screen Alcohol, Quantitative B-Hydroxybutyrate 07/30/18 07/30/18 07/30/18 07:59 08:42 09:10 WBC RBC Hgb Hct MCV MCH MCHC RDW Plt Count MPV Neut % (Auto) Lymph % (Auto) [place] % (Auto) Eos % (Auto) Baso % (Auto) Neut # (Auto) Lymph # (Auto) [place] # (Auto) Eos # (Auto) Baso # (Auto) pO2 VBG pH VBG pCO2 VBG HCO3 VBG Total CO2 VBG O2 Sat (Calc) VBG Base Excess VBG Potassium Glucose Lactate Crit Value Called To Crit Value Called By Crit Value Read Back Blood Gas Notified Time Sodium 141 Potassium 3.4 L Chloride 107 Carbon Dioxide 25 Anion Gap 13 BUN 7 Creatinine 0.4 L Est GFR ( Amer) > 60 Est GFR (Non-Af Amer) > 60 POC Glucose (mg/dL) 119 H 54 L Random Glucose 156 H Calcium 8.4 L Phosphorus 1.7 L Magnesium 1.4 L Total Bilirubin 0.3 AST 24 ALT 33 Alkaline Phosphatase 67 NT-Pro-B Natriuret Pep Total Protein 5.5 L Albumin 3.3 L Globulin 2.2 Albumin/Globulin Ratio 1.5 TSH 3rd Generation Beta HCG, Quant Venous Blood Potassium Urine Opiates Screen Urine Methadone Screen Ur Barbiturates Screen Ur Phencyclidine Scrn Ur Amphetamines Screen U Benzodiazepines Scrn U Oth Cocaine Metabols U Cannabinoids Screen Alcohol, Quantitative B-Hydroxybutyrate 09/12/1607/30/18 07/30/18 09:11 10:00 10:57 WBC RBC Hgb Hct MCV MCH MCHC RDW Plt Count MPV Neut % (Auto) Lymph % (Auto) [place] % (Auto) Eos % (Auto) Baso % (Auto) Neut # (Auto) Lymph # (Auto) [place] # (Auto) Eos # (Auto) Baso # (Auto) pO2 VBG pH VBG pCO2 VBG HCO3 VBG Total CO2 VBG O2 Sat (Calc) VBG Base Excess VBG Potassium Glucose Lactate Crit Value Called To Crit Value Called By Crit Value Read Back Blood Gas Notified Time Sodium Potassium Chloride Carbon Dioxide Anion Gap BUN Creatinine Est GFR ( Amer) Est GFR (Non-Af Amer) POC Glucose (mg/dL) 141 H 99 138 H Random Glucose Calcium Phosphorus Magnesium Total Bilirubin AST ALT Alkaline Phosphatase NT-Pro-B Natriuret Pep Total Protein Albumin Globulin Albumin/Globulin Ratio TSH 3rd Generation Beta HCG, Quant Venous Blood Potassium Urine Opiates Screen Urine Methadone Screen Ur Barbiturates Screen Ur Phencyclidine Scrn Ur Amphetamines Screen U Benzodiazepines Scrn U Oth Cocaine Metabols U Cannabinoids Screen Alcohol, Quantitative B-Hydroxybutyrate 07/30/18 07/30/18 12:00 12:26 WBC 5.8 RBC 3.22 L Hgb 11.5 Hct 33.0 L MCV 102.6 H MCH 35.9 H MCHC 34.9 RDW 13.5 Plt Count 133 MPV 10.8 Neut % (Auto) 67.8 Lymph % (Auto) 19.1 L [place] % (Auto) 11.8 H Eos % (Auto) 0.7 Baso % (Auto) 0.6 Neut # (Auto) 4.0 Lymph # (Auto) 1.1 [place] # (Auto) 0.7 Eos # (Auto) 0.0 Baso # (Auto) 0.0 pO2 VBG pH VBG pCO2 VBG HCO3 VBG Total CO2 VBG O2 Sat (Calc) VBG Base Excess VBG Potassium Glucose Lactate Crit Value Called To Crit Value Called By Crit Value Read Back Blood Gas Notified Time Sodium Potassium Chloride Carbon Dioxide Anion Gap BUN Creatinine Est GFR ( Amer) Est GFR (Non-Af Amer) POC Glucose (mg/dL) 150 H Random Glucose Calcium Phosphorus Magnesium Total Bilirubin AST ALT Alkaline Phosphatase NT-Pro-B Natriuret Pep Total Protein Albumin Globulin Albumin/Globulin Ratio TSH 3rd Generation Beta HCG, Quant Venous Blood Potassium Urine Opiates Screen Urine Methadone Screen Ur Barbiturates Screen Ur Phencyclidine Scrn Ur Amphetamines Screen U Benzodiazepines Scrn U Oth Cocaine Metabols U Cannabinoids Screen Alcohol, Quantitative B-Hydroxybutyrate EKG/Cardiology Studies: Cardiology / EKG Studies 07/29/18 23:02 ELECTROCARDIOGRAM Stat Comment: Mode Of Transportation: Reason For Exam: palpitations Fingerstick Blood Sugar Results: 224 Review of Systems - Review of Systems All systems: reviewed and no additional remarkable complaints except (as per Subjective) Critical Care Progress Note - Nutrition Nutrition: Nutrition Category Date Time Status Heart Healthy Diet [DIET] Diets 07/30/18 Breakfast Active Assessment/Plan - Assessment and Plan (Free Text) Assessment: This is a 42 yo F with PMH of HTN, DM, and prior alcohol abuse who was brought in by EMS for public intoxication, and was determined to be in DKA. She was transferred to the ICU and started on an insulin drip. Her gap has closed, she has been transitioned to long and short acting insulin regimen, and trialled on a diet without acute issue. Plan: Neuro: awake and alert pending possible alcohol withdrawal, alcohol level 263 on admit Continue IV Banana bag/Thiamine/Folic acid to prevent neurologic sequella, CIWA protocol 1mg IV q6 prn ativan ordered for withdrawal sx drug panel pending maintain normothermia Pulm: satting well on room air maintain SaO2 > 92% Cardio: maintaining MAP > 65, hemodynamically stable mild tachycardia and borderline elevated BP 2/2 alcohol withdrawal vs DKA vs untreated Cardio issue baseline HR based on prior charting appears to be 90's-100's no prior antihypertensive medications noted in Ambulatory order hx, will start on low dose Metoprolol GI: Heart-healthy consistent carb diet started after transition off the insulin drip Protonix for GI ppx Renal: BUN/Cr wnl at 7/0.4 repleting Mag/Phos/K, recheck and replete further as needed Heme: Hgb/Hct wnl at 11.5/33 Macrocytosis, likely 2/2 depleted folic acid/Vit B12 given chronic alcoholism Repleting both daily Continue to monitor SCD for DVT ppx, avoid AC in setting of decreasing platelet counts in alcoholic pt (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) ID: No leukocytosis, afebrile No indication for abx at this time Continue to monitor Endo: DKA with glucose 428 and gap 26, not resolved with Levemir 40 units SC and fluids Gap closed, drip turned off before 2 hour overlap due to acute hypoglycemic episode to 50's requiring D50 (despite D5 fluids) Currently on Levemir 40 units HS, Medium-dose sliding scale, accuchecks q6 Will determine amount of with meals short-acting insulin based on sliding scale doses over next 24 hours Dispo: In ICU, transitioned from drip to long and short acting insulin, possible transfer tomorrow if gap remains closed and sugars are stable FEN: Heart-healthy consistent carb, Banana Bag/Folate/Thiamine/B12 supplementation, electrolytes as needed Access: Peripheral IVs Consults: ICU Ppx: Protonix for GI, SCDs for DVT Code Status: Unknown, so Full by default Reviewed and discussed with attending, Dr. Augustine <Colton Augustine - Last Filed: 08/01/18 12:19> CCU Objective - Vital Signs / Intake & Output Intake and Output (Last 8hrs): Intake & Output 07/31/18 08/01/18 08/01/18 22:59 06:59 14:59 Intake Total 1676 2878 Output Total 1000 2300 Balance 676 578 Weight 165 lb Intake: Intake, IV Amount 1136 878 LACA 2 336 Left Antecubital 800 878 Oral 540 2000 Output: Urine 1000 2300 Urine, Voided 1000 2300 Other: # Voids Urine, Voided 1 - Medications Active Medications: Active Medications Generic Name Dose Route Start Last Admin Trade Name Freq PRN Reason Stop Dose Admin Amoxicillin/Clavulanate Potassium 1 tab 07/30/18 19:30 08/01/18 08:28 Augmentin 875 Mg-125 Mg Tab PO 1 tab Q12H PARVIZ Administration Protocol Cyanocobalamin 1,000 mcg 07/30/18 16:30 08/01/18 09:41 Vitamin B12 1000 Mcg Tab PO 1,000 mcg DAILY PARVIZ Administration Dextrose 0 ml 07/30/18 08:44 Dextrose 50% Inj IV STAT PRN Hypoglycemia Protocol Protocol Dextrose 0 gm 07/30/18 08:44 Glutose 15 PO ONCE PRN Hypoglycemia Protocol Protocol Gabapentin 400 mg 07/31/18 10:00 08/01/18 09:41 Neurontin PO 400 mg TID PARVIZ Administration Glucagon 0 mg 07/30/18 08:44 Glucagen Diagnostic Kit IM STAT PRN Hypoglycemia Protocol Protocol Dextrose 1,000 mls @ 0 mls/hr 07/30/18 08:44 Dextrose 5% In Water 1000 Ml IV .Q0M PRN Hypoglycemia Protocol Protocol Per Protocol Folic Acid 1 mg/ Sodium 100.2 mls @ 60 mls/hr 07/31/18 10:00 07/31/18 09:52 Chloride IV 60 mls/hr DAILY PARVIZ Administration Insulin Aspart 0 unit 07/30/18 13:16 08/01/18 08:27 Novolog SC 2 unit ACHS PARVIZ Administration Protocol Insulin Detemir 35 unit 07/31/18 09:59 07/31/18 21:20 Levemir SC 35 units HS PARVIZ Administration Lisinopril 10 mg 07/30/18 20:15 08/01/18 09:41 Zestril PO 10 mg DAILY PARVIZ Administration Lorazepam 1 mg 07/30/18 16:14 07/30/18 21:21 Ativan IVP 1 mg Q6H PRN Administration Symptoms of alcohol withdrawl Pantoprazole Sodium 40 mg 07/30/18 10:30 08/01/18 09:41 Protonix Ec Tab PO 40 mg DAILY PARVIZ Administration - Patient Studies Lab Studies: Microbiology Studies 07/30/18 08:35 Blood Culture - Preliminary Blood NO GROWTH AFTER 48 HOURS 07/30/18 08:35 Blood Culture - Preliminary Blood NO GROWTH AFTER 48 HOURS 07/30/18 06:27 MRSA Culture (Admit) - Final Nose MRSA NOT DETECTED Lab Studies 08/01/18 08/01/18 08/01/18 Range/Units 11:32 07:16 06:27 POC Glucose (mg/dL) 87 186 H 78 (65-110) mg/dL 07/31/18 07/31/18 Range/Units 21:05 16:17 POC Glucose (mg/dL) 305 H 273 H (65-110) mg/dL Laboratory Results - last 24 hr 07/31/18 07/31/18 08/01/18 16:17 21:05 06:27 POC Glucose (mg/dL) 273 H 305 H 78 08/01/18 08/01/18 07:16 11:32 POC Glucose (mg/dL) 186 H 87 Critical Care Progress Note - Nutrition Nutrition: Nutrition Category Date Time Status Heart Healthy Diet [DIET] Diets 07/30/18 Breakfast Active Attending/Attestation - Attestation I have personally seen and examined this patient.: Yes I have fully participated in the care of the patient.: Yes I have reviewed all pertinent clinical information: Yes
[2018-07-30] MEDS ORDERED: Enoxaparin 40 mg Syringe SC SCH (16:30)
[2018-07-30] MEDS: Amoxicillin-Clav 875-125 mg Tab PO SCH (20:33)
[2018-07-30] MEDS ORDERED: Insulin Detemir 100 units/ml Vial (Levemir) SC SCH (22:00)
[2018-07-31] MEDS: Thiamine 100 mg/ml Inj IV SCH ×3 (00:32→17:13)
[2018-07-31] MEDS: Folic Acid 1 MG, Multivitamin (MVI) 10 ML in Dextrose 5% In Water 1,000 ML IV SCH (00:32)
[2018-07-31] MEDS: Dextrose 5%/0.45% NS 1,000 ML IV SCH ×3 (00:37→12:27)
[2018-07-31] MEDS: Amoxicillin-Clav 875-125 mg Tab PO SCH ×2 (06:31→18:50)
[2018-07-31 06:39] LABS: BASO % 0.5 % (0.0-2.0); EOS # 0.1 K/uL (0.0-0.7); EOS % 2.1 % (0.0-4.0); LYMPH # 1.1 K/uL (1.0-4.3); LYMPH % 22.1 % (20.0-40.0); MEAN CELL VOLUME 102.9 fL (81.0-99.0); MEAN CORPUSCULAR HEMOGLOBIN 35.3 pg (27.0-31.0); MEAN CORPUSCULAR HGB CONC 34.3 g/dL (33.0-37.0); MEAN PLATELET VOLUME 11.3 fL (7.2-11.7); MONO # 0.5 K/uL (0.0-0.8); MONO % 9.6 % (0.0-10.0); NEUT # 3.3 K/uL (1.8-7.0); NEUT % 65.7 % (50.0-75.0); NRBC % 0.1 % (0.0-2.0); RBC 3.39 Mil/uL (3.80-5.20); RED CELL DISTRIBUTION WIDTH 13.4 % (11.5-14.5)
[2018-07-31 06:41] LABS: SQUAMOUS EPITHIAL 7 /hpf (0-5); URINE BACTERIA RARE (<OCC); URINE BILIRUBIN NEGATIVE (NEGATIVE); URINE BLOOD 2+ (NEGATIVE); URINE CLARITY Clear (Clear); URINE COLOR Straw (YELLOW); URINE GLUCOSE (UA) 3+ mg/dL (Normal); URINE LEUKOCYTE ESTERASE NEG Leu/uL (Negative); URINE PROTEIN NEGATIVE (NEGATIVE); URINE UROBILINOGEN NORMAL mg/dL (0.2-1.0)
[2018-07-31 07:02] LABS: ALB/GLOB RATIO 1.2 (1.0-2.1); ALT/SGPT 30 U/L (9-52); AST/SGOT 19 U/L (14-36); BLOOD UREA NITROGEN 6 mg/dL (7-17); CALCIUM 8.8 mg/dl (8.6-10.4); GFR NON-AFRICAN AMERICAN > 60
[2018-07-31] MEDS: (Novolog) Insulin Aspart, Recombinant 100 u/ml 10 ml vial SC SCH ×4 (07:30→21:19)
[2018-07-31] MEDS ORDERED: Potassium Chloride 20 mEq/15 ml LIQ UD PO ONE (09:00)
[2018-07-31] MEDS: Pantoprazole 40 mg EC Tab PO SCH (09:21)
--- NOTE | 2018-07-31 13:42 | CP.CCUPN ---
<Rodrigo Mejía - Last Filed: 07/31/18 19:25> CCU Subjective - Physician Review Subjective (Free Text): 07/31/18 19:08 Patient seen and examined at bedside in ICU. No acute events overnight, no acute complaints at time of exam. Remains off ICU drip, sugars stable, no acute hypoglycemic episodes requiring D50. Tolerating diet well. Stable for transfer to Med/Surg floor. CCU Objective - Vital Signs / Intake & Output Vital Signs (Last 4 hours): Vital Signs Temp Pulse Resp BP Pulse Ox 07/31/18 12:00 98.6 F 92 H 19 07/31/18 11:00 83 20 07/31/18 10:22 89 15 152/88 H 97 07/31/18 10:07 106 H Intake and Output (Last 8hrs): Intake & Output 07/30/18 07/31/18 07/31/18 22:59 06:59 14:59 Intake Total 1578.5 1278 1048 Output Total 820 2000 1650 Balance 758.5 -722 -602 Weight 71.214 kg Intake: Intake, IV Amount 1198.5 1278 568 LACA 2 42 Left AC sideport 230.5 378 126 Left Antecubital 100 Right AC 168 left AC 800 900 300 Oral 380 480 Output: Urine 820 2000 1650 Urine, Voided 820 2000 1650 Other: # Voids Urine, Voided 2 - Physical Exam Head: Positive for: Atraumatic, Normocephalic Pupils: Negative for: Non-Reactive, Pinpoint Extroacular Muscles: Positive for: EOMI Conjunctiva: Positive for: Normal. Negative for: Injected, Icteric Mouth: Positive for: Moist Mucous Membranes, Normal Lips, Normal Tounge. Negative for: Dry, Drooling Pharnyx: Negative for: Muffled/Hoarse Voice, Strider Nose (External): Positive for: Atraumatic. Negative for: Abrasion, Contusion, Laceration Nose (Internal): Positive for: No Active Bleeding. Negative for: Epistaxis Neck: Positive for: Normal Range of Motion, Trachea Midline. Negative for: JVD Respiratory/Chest: Positive for: Clear to Auscultation, Good Air Exchange. Negative for: Respiratory Distress, Accessory Muscle Use, Wheezes, Rales, Rhonchi Cardiovascular: Positive for: Regular Rate and Rhythm, Normal S1, S2, Peripheal Pulses Present (+2 radials bilaterally, faintly palpable bilateral dorsalis pedis due to mild LE edema). Negative for: Irregular Rhythm, Tachycardic, Bradycardic Abdomen: Positive for: Normal Bowel Sounds. Negative for: Tenderness, Distention Upper Extremity: Positive for: Normal Inspection, Normal ROM, NORMAL PULSES. Negative for: Cyanosis, Edema, Tenderness, Swelling, Erythema, Deformity Lower Extremity: Positive for: Edema (trace pitting edema in bilateral feet to ankles, improved compared to yesterday), NORMAL PULSES, Normal ROM. Negative for: CALF TENDERNESS, Cyanosis, Tenderness, Swelling, Erythema Neurological: Positive for: GCS=15, Speech Normal, Motor Func Grossly Intact Skin: Positive for: Warm, Dry, Normal Color. Negative for: Rashes Psychiatric: Positive for: Alert, Oriented x 3 - Medications Active Medications: Active Medications Generic Name Dose Route Start Last Admin Trade Name Freq PRN Reason Stop Dose Admin Amoxicillin/Clavulanate Potassium 1 tab 07/30/18 19:30 07/31/18 06:31 Augmentin 875 Mg-125 Mg Tab PO 1 tab Q12H [facility] Administration Protocol Cyanocobalamin 1,000 mcg 07/30/18 16:30 07/31/18 09:20 Vitamin B12 1000 Mcg Tab PO 1,000 mcg DAILY [facility] Administration Dextrose 0 ml 07/30/18 08:44 Dextrose 50% Inj IV STAT PRN Hypoglycemia Protocol Protocol Dextrose 0 gm 07/30/18 08:44 Glutose 15 PO ONCE PRN Hypoglycemia Protocol Protocol Gabapentin 400 mg 07/31/18 10:00 07/31/18 09:21 Neurontin PO 400 mg TID [facility] Administration Glucagon 0 mg 07/30/18 08:44 Glucagen Diagnostic Kit IM STAT PRN Hypoglycemia Protocol Protocol Folic Acid 1 mg/ Multivitamins 1,010.2 mls @ 42 mls/hr 07/30/18 01:30 00:32 /Vitamin C 10 ml/ Dextrose IV 42 mls/hr .Q24H [facility] Administration Dextrose/Sodium Chloride 1,000 mls @ 100 mls/hr 07/30/18 05:15 07/31/18 12:27 Dextrose 5%/0.45% Ns 1000 Ml IV 100 mls/hr .Q10H [facility] Administration Dextrose 1,000 mls @ 0 mls/hr 07/30/18 08:44 Dextrose 5% In Water 1000 Ml IV .Q0M PRN Hypoglycemia Protocol Protocol Per Protocol Folic Acid 1 mg/ Sodium 100.2 mls @ 60 mls/hr 07/31/18 10:00 07/31/18 09:52 Chloride IV 60 mls/hr DAILY [facility] Administration Insulin Aspart 0 unit 07/30/18 13:16 07/31/18 12:28 Novolog SC Not Given ACHS [facility] Protocol Insulin Detemir 35 unit 07/31/18 09:59 Levemir SC HS [facility] Lisinopril 10 mg 07/30/18 20:15 07/31/18 09:21 Zestril PO 10 mg DAILY [facility] Administration Lorazepam 1 mg 07/30/18 16:14 07/30/18 21:21 Ativan IVP 1 mg Q6H PRN Administration Symptoms of alcohol withdrawl Pantoprazole Sodium 40 mg 07/30/18 10:30 07/31/18 09:21 Protonix Ec Tab PO 40 mg DAILY [facility] Administration Thiamine HCl 200 mg 07/30/18 01:30 07/31/18 09:25 Vitamin B1 Inj IV 07/31/18 17:31 200 mg Q8H [facility] Administration - Patient Studies Lab Studies: Microbiology Studies 07/30/18 06:27 MRSA Culture (Admit) - Final Nose MRSA NOT DETECTED 07/30/18 08:35 Blood Culture - Preliminary Blood NO GROWTH AFTER 24 HOURS 07/30/18 08:35 Blood Culture - Preliminary Blood NO GROWTH AFTER 24 HOURS 07/30/18 00:55 Urine Culture - Final Urine No Growth (<1,000 CFU/ML) Lab Studies 07/31/18 07/31/18 07/31/18 Range/Units 11:56 07:20 06:34 WBC (4.8-10.8) K/uL RBC (3.80-5.20) Mil/uL Hgb (11.0-16.0) g/dL Hct (34.0-47.0) % MCV (81.0-99.0) fL MCH (27.0-31.0) pg MCHC (33.0-37.0) g/dL RDW (11.5-14.5) % Plt Count (130-400) K/uL MPV (7.2-11.7) fL Neut % (Auto) (50.0-75.0) % Lymph % (Auto) (20.0-40.0) % [place] % (Auto) (0.0-10.0) % Eos % (Auto) (0.0-4.0) % Baso % (Auto) (0.0-2.0) % Neut # (Auto) (1.8-7.0) K/uL Lymph # (Auto) (1.0-4.3) K/uL [place] # (Auto) (0.0-0.8) K/uL Eos # (Auto) (0.0-0.7) K/uL Baso # (Auto) (0.0-0.2) K/uL Sodium (132-148) mmol/L Potassium (3.6-5.2) mmol/L Chloride (98-107) mmol/L Carbon Dioxide (22-30) mmol/L Anion Gap (10-20) BUN (7-17) mg/dL Creatinine (0.7-1.2) mg/dL Est GFR ( Amer) Est GFR (Non-Af Amer) POC Glucose (mg/dL) 140 H 105 (65-110) mg/dL Random Glucose (65-105) mg/dL Hemoglobin A1c (4.2-6.5) % Calcium (8.6-10.4) mg/dl Phosphorus (2.5-4.5) mg/dL Magnesium (1.6-2.3) mg/dL Total Bilirubin (0.2-1.3) mg/dL AST (14-36) U/L ALT (9-52) U/L Alkaline Phosphatase (38-126) U/L Total Protein (6.3-8.3) g/dL Albumin (3.5-5.0) g/dL Globulin (2.2-3.9) gm/dL Albumin/Globulin Ratio (1.0-2.1) Urine Color Straw (YELLOW) Urine Clarity Clear (Clear) Urine pH 6.0 (5.0-8.0) Ur Specific [place] 1.005 (1.003-1.030) Urine Protein Negative (NEGATIVE) mg/dL Urine Glucose (UA) 3+ H (Normal) mg/dL Urine Ketones Negative (NEGATIVE) mg/dL Urine Blood 2+ H (NEGATIVE) Urine Nitrate Negative (NEGATIVE) Urine Bilirubin Negative (NEGATIVE) Urine Urobilinogen Normal (0.2-1.0) mg/dL Ur Leukocyte Esterase Neg (Negative) [place]/uL Urine WBC (Auto) 1 (0-5) /hpf Urine RBC (Auto) 4 H (0-3) /hpf Ur Squamous Epith Cells 7 H (0-5) /hpf Urine Bacteria Rare (<OCC) 07/31/18 07/31/18 07/30/18 Range/Units 06:32 06:32 21:15 WBC 5.0 (4.8-10.8) K/uL RBC 3.39 L (3.80-5.20) Mil/uL Hgb 12.0 (11.0-16.0) g/dL Hct 34.9 (34.0-47.0) % MCV 102.9 H (81.0-99.0) fL MCH 35.3 H (27.0-31.0) pg MCHC 34.3 (33.0-37.0) g/dL RDW 13.4 (11.5-14.5) % Plt Count 127 L (130-400) K/uL MPV 11.3 (7.2-11.7) fL Neut % (Auto) 65.7 (50.0-75.0) % Lymph % (Auto) 22.1 (20.0-40.0) % [place] % (Auto) 9.6 (0.0-10.0) % Eos % (Auto) 2.1 (0.0-4.0) % Baso % (Auto) 0.5 (0.0-2.0) % Neut # (Auto) 3.3 (1.8-7.0) K/uL Lymph # (Auto) 1.1 (1.0-4.3) K/uL [place] # (Auto) 0.5 (0.0-0.8) K/uL Eos # (Auto) 0.1 (0.0-0.7) K/uL Baso # (Auto) 0.0 (0.0-0.2) K/uL Sodium 140 (132-148) mmol/L Potassium 3.4 L (3.6-5.2) mmol/L Chloride 105 (98-107) mmol/L Carbon Dioxide 26 (22-30) mmol/L Anion Gap 12 (10-20) BUN 6 L (7-17) mg/dL Creatinine 0.4 L (0.7-1.2) mg/dL Est GFR ( Amer) > 60 Est GFR (Non-Af Amer) > 60 POC Glucose (mg/dL) 182 H (65-110) mg/dL Random Glucose 150 H (65-105) mg/dL Hemoglobin A1c (4.2-6.5) % Calcium 8.8 (8.6-10.4) mg/dl Phosphorus 3.7 (2.5-4.5) mg/dL Magnesium 1.7 (1.6-2.3) mg/dL Total Bilirubin 0.3 (0.2-1.3) mg/dL AST 19 (14-36) U/L ALT 30 (9-52) U/L Alkaline Phosphatase 60 (38-126) U/L Total Protein 5.4 L (6.3-8.3) g/dL Albumin 3.0 L (3.5-5.0) g/dL Globulin 2.4 (2.2-3.9) gm/dL Albumin/Globulin Ratio 1.2 (1.0-2.1) Urine Color (YELLOW) Urine Clarity (Clear) Urine pH (5.0-8.0) Ur Specific [place] (1.003-1.030) Urine Protein (NEGATIVE) mg/dL Urine Glucose (UA) (Normal) mg/dL Urine Ketones (NEGATIVE) mg/dL Urine Blood (NEGATIVE) Urine Nitrate (NEGATIVE) Urine Bilirubin (NEGATIVE) Urine Urobilinogen (0.2-1.0) mg/dL Ur Leukocyte Esterase (Negative) [place]/uL Urine WBC (Auto) (0-5) /hpf Urine RBC (Auto) (0-3) /hpf Ur Squamous Epith Cells (0-5) /hpf Urine Bacteria (<OCC) 07/30/18 07/30/18 07/30/18 Range/Units 16:28 13:02 01:36 WBC (4.8-10.8) K/uL RBC (3.80-5.20) Mil/uL Hgb (11.0-16.0) g/dL Hct (34.0-47.0) % MCV (81.0-99.0) fL MCH (27.0-31.0) pg MCHC (33.0-37.0) g/dL RDW (11.5-14.5) % Plt Count (130-400) K/uL MPV (7.2-11.7) fL Neut % (Auto) (50.0-75.0) % Lymph % (Auto) (20.0-40.0) % [place] % (Auto) (0.0-10.0) % Eos % (Auto) (0.0-4.0) % Baso % (Auto) (0.0-2.0) % Neut # (Auto) (1.8-7.0) K/uL Lymph # (Auto) (1.0-4.3) K/uL [place] # (Auto) (0.0-0.8) K/uL Eos # (Auto) (0.0-0.7) K/uL Baso # (Auto) (0.0-0.2) K/uL Sodium (132-148) mmol/L Potassium (3.6-5.2) mmol/L Chloride (98-107) mmol/L Carbon Dioxide (22-30) mmol/L Anion Gap (10-20) BUN (7-17) mg/dL Creatinine (0.7-1.2) mg/dL Est GFR ( Amer) Est GFR (Non-Af Amer) POC Glucose (mg/dL) 249 H 224 H (65-110) mg/dL Random Glucose (65-105) mg/dL Hemoglobin A1c 11.7 H (4.2-6.5) % Calcium (8.6-10.4) mg/dl Phosphorus (2.5-4.5) mg/dL Magnesium (1.6-2.3) mg/dL Total Bilirubin (0.2-1.3) mg/dL AST (14-36) U/L ALT (9-52) U/L Alkaline Phosphatase (38-126) U/L Total Protein (6.3-8.3) g/dL Albumin (3.5-5.0) g/dL Globulin (2.2-3.9) gm/dL Albumin/Globulin Ratio (1.0-2.1) Urine Color (YELLOW) Urine Clarity (Clear) Urine pH (5.0-8.0) Ur Specific [place] (1.003-1.030) Urine Protein (NEGATIVE) mg/dL Urine Glucose (UA) (Normal) mg/dL Urine Ketones (NEGATIVE) mg/dL Urine Blood (NEGATIVE) Urine Nitrate (NEGATIVE) Urine Bilirubin (NEGATIVE) Urine Urobilinogen (0.2-1.0) mg/dL Ur Leukocyte Esterase (Negative) [place]/uL Urine WBC (Auto) (0-5) /hpf Urine RBC (Auto) (0-3) /hpf Ur Squamous Epith Cells (0-5) /hpf Urine Bacteria (<OCC) Laboratory Results - last 24 hr 07/30/18 07/30/18 07/30/18 01:36 13:02 16:28 WBC RBC Hgb Hct MCV MCH MCHC RDW Plt Count MPV Neut % (Auto) Lymph % (Auto) [place] % (Auto) Eos % (Auto) Baso % (Auto) Neut # (Auto) Lymph # (Auto) [place] # (Auto) Eos # (Auto) Baso # (Auto) Sodium Potassium Chloride Carbon Dioxide Anion Gap BUN Creatinine Est GFR ( Amer) Est GFR (Non-Af Amer) POC Glucose (mg/dL) 224 H 249 H Random Glucose Hemoglobin A1c 11.7 H Calcium Phosphorus Magnesium Total Bilirubin AST ALT Alkaline Phosphatase Total Protein Albumin Globulin Albumin/Globulin Ratio Urine Color Urine Clarity Urine pH Ur Specific [place] Urine Protein Urine Glucose (UA) Urine Ketones Urine Blood Urine Nitrate Urine Bilirubin Urine Urobilinogen Ur Leukocyte Esterase Urine WBC (Auto) Urine RBC (Auto) Ur Squamous Epith Cells Urine Bacteria 07/30/18 07/31/18 07/31/18 21:15 06:32 06:32 WBC 5.0 RBC 3.39 L Hgb 12.0 Hct 34.9 MCV 102.9 H MCH 35.3 H MCHC 34.3 RDW 13.4 Plt Count 127 L MPV 11.3 Neut % (Auto) 65.7 Lymph % (Auto) 22.1 [place] % (Auto) 9.6 Eos % (Auto) 2.1 Baso % (Auto) 0.5 Neut # (Auto) 3.3 Lymph # (Auto) 1.1 [place] # (Auto) 0.5 Eos # (Auto) 0.1 Baso # (Auto) 0.0 Sodium 140 Potassium 3.4 L Chloride 105 Carbon Dioxide 26 Anion Gap 12 BUN 6 L Creatinine 0.4 L Est GFR ( Amer) > 60 Est GFR (Non-Af Amer) > 60 POC Glucose (mg/dL) 182 H Random Glucose 150 H Hemoglobin A1c Calcium 8.8 Phosphorus 3.7 Magnesium 1.7 Total Bilirubin 0.3 AST 19 ALT 30 Alkaline Phosphatase 60 Total Protein 5.4 L Albumin 3.0 L Globulin 2.4 Albumin/Globulin Ratio 1.2 Urine Color Urine Clarity Urine pH Ur Specific [place] Urine Protein Urine Glucose (UA) Urine Ketones Urine Blood Urine Nitrate Urine Bilirubin Urine Urobilinogen Ur Leukocyte Esterase Urine WBC (Auto) Urine RBC (Auto) Ur Squamous Epith Cells Urine Bacteria 07/31/18 07/31/18 07/31/18 06:34 07:20 11:56 WBC RBC Hgb Hct MCV MCH MCHC RDW Plt Count MPV Neut % (Auto) Lymph % (Auto) [place] % (Auto) Eos % (Auto) Baso % (Auto) Neut # (Auto) Lymph # (Auto) [place] # (Auto) Eos # (Auto) Baso # (Auto) Sodium Potassium Chloride Carbon Dioxide Anion Gap BUN Creatinine Est GFR ( Amer) Est GFR (Non-Af Amer) POC Glucose (mg/dL) 105 140 H Random Glucose Hemoglobin A1c Calcium Phosphorus Magnesium Total Bilirubin AST ALT Alkaline Phosphatase Total Protein Albumin Globulin Albumin/Globulin Ratio Urine Color Straw Urine Clarity Clear Urine pH 6.0 Ur Specific [place] 1.005 Urine Protein Negative Urine Glucose (UA) 3+ H Urine Ketones Negative Urine Blood 2+ H Urine Nitrate Negative Urine Bilirubin Negative Urine Urobilinogen Normal Ur Leukocyte Esterase Neg Urine WBC (Auto) 1 Urine RBC (Auto) 4 H Ur Squamous Epith Cells 7 H Urine Bacteria Rare Fingerstick Blood Sugar Results: 140 Review of Systems - Review of Systems All systems: reviewed and no additional remarkable complaints except (as per subjective) Critical Care Progress Note - Nutrition Nutrition: Nutrition Category Date Time Status Heart Healthy Diet [DIET] Diets 07/30/18 Breakfast Active Assessment/Plan - Assessment and Plan (Free Text) Assessment: This is a 42 yo F with PMH of HTN, DM, and prior alcohol abuse who was brought in by EMS for public intoxication, and was determined to be in DKA. She was transferred to the ICU and started on an insulin drip. Her gap has closed, she has been transitioned to long and short acting insulin regimen, tolerating diet well, no further hypoglycemic episodes. Transferred to Med/Surg floor. Plan: Neuro: awake and alert pending possible alcohol withdrawal, alcohol level 263 on admit Continue IV Banana bag/Thiamine/Folic acid to prevent neurologic sequella, CIWA protocol 1mg IV q6 prn ativan ordered for withdrawal sx drug panel negative maintain normothermia Pulm: satting well on room air maintain SaO2 > 92% Cardio: maintaining MAP > 65, hemodynamically stable mild tachycardia and borderline elevated BP resolved, possibly 2/2 alcohol withdrawal vs DKA vs untreated Cardio issue baseline HR based on prior charting appears to be 90's-100's continue Lisinopril GI: Heart-healthy consistent carb diet, tolerating well Protonix for GI ppx Renal: BUN/Cr wnl at 6/0.4 Mag/Phos wnl, K low at 3.4, repleting Heme: Hgb/Hct wnl at 12/34.9 Macrocytosis, likely 2/2 depleted folic acid/Vit B12 given chronic alcoholism Repleting both daily Continue to monitor SCD for DVT ppx, avoid AC in setting of decreasing platelet counts in alcoholic pt (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) ID: No leukocytosis, afebrile No indication for abx at this time Continue to monitor Endo: DKA with glucose 428 and gap 26, not resolved with Levemir 40 units SC and fluids; resolved today, gap closed on last 2 BMPs Transitioned onto long acting and sliding scale insulin No further hypoglycemic episodes Levemir decreased to 35 units qHS, continue medium sliding scale Continue to monitor on sliding scale with new levemir dose to determine appropriate short-acting coverage Dispo: gap closed, diet tolerated, no further hypoglycemic episodes, transferred to Med/Surg FEN: Heart-healthy consistent carb, Banana Bag/Folate/Thiamine/B12 supplementation, electrolytes as needed Access: Peripheral IVs Consults: ICU Ppx: Protonix for GI, SCDs for DVT Code Status: Unknown, so Full by default Reviewed and discussed with attending, Dr. Augustine <Colton Augustine - Last Filed: 08/01/18 12:19> CCU Objective - Vital Signs / Intake & Output Intake and Output (Last 8hrs): Intake & Output 07/31/18 08/01/18 08/01/18 22:59 06:59 14:59 Intake Total 1676 2878 Output Total 1000 2300 Balance 676 578 Weight 165 lb Intake: Intake, IV Amount 1136 878 LACA 2 336 Left Antecubital 800 878 Oral 540 2000 Output: Urine 1000 2300 Urine, Voided 1000 2300 Other: # Voids Urine, Voided 1 - Medications Active Medications: Active Medications Generic Name Dose Route Start Last Admin Trade Name Freq PRN Reason Stop Dose Admin Amoxicillin/Clavulanate Potassium 1 tab 07/30/18 19:30 08/01/18 08:28 Augmentin 875 Mg-125 Mg Tab PO 1 tab Q12H [facility] Administration Protocol Cyanocobalamin 1,000 mcg 07/30/18 16:30 08/01/18 09:41 Vitamin B12 1000 Mcg Tab PO 1,000 mcg DAILY [facility] Administration Dextrose 0 ml 07/30/18 08:44 Dextrose 50% Inj IV STAT PRN Hypoglycemia Protocol Protocol Dextrose 0 gm 07/30/18 08:44 Glutose 15 PO ONCE PRN Hypoglycemia Protocol Protocol Gabapentin 400 mg 07/31/18 10:00 08/01/18 09:41 Neurontin PO 400 mg TID [facility] Administration Glucagon 0 mg 07/30/18 08:44 Glucagen Diagnostic Kit IM STAT PRN Hypoglycemia Protocol Protocol Dextrose 1,000 mls @ 0 mls/hr 07/30/18 08:44 Dextrose 5% In Water 1000 Ml IV .Q0M PRN Hypoglycemia Protocol Protocol Per Protocol Folic Acid 1 mg/ Sodium 100.2 mls @ 60 mls/hr 07/31/18 10:00 07/31/18 09:52 Chloride IV 60 mls/hr DAILY [facility] Administration Insulin Aspart 0 unit 07/30/18 13:16 08/01/18 08:27 Novolog SC 2 unit ACHS [facility] Administration Protocol Insulin Detemir 35 unit 07/31/18 09:59 07/31/18 21:20 Levemir SC 35 units HS [facility] Administration Lisinopril 10 mg 07/30/18 20:15 08/01/18 09:41 Zestril PO 10 mg DAILY [facility] Administration Lorazepam 1 mg 07/30/18 16:14 07/30/18 21:21 Ativan IVP 1 mg Q6H PRN Administration Symptoms of alcohol withdrawl Pantoprazole Sodium 40 mg 07/30/18 10:30 08/01/18 09:41 Protonix Ec Tab PO 40 mg DAILY [facility] Administration - Patient Studies Lab Studies: Microbiology Studies 07/30/18 08:35 Blood Culture - Preliminary Blood NO GROWTH AFTER 48 HOURS 07/30/18 08:35 Blood Culture - Preliminary Blood NO GROWTH AFTER 48 HOURS 07/30/18 06:27 MRSA Culture (Admit) - Final Nose MRSA NOT DETECTED Lab Studies 08/01/18 08/01/18 08/01/18 Range/Units 11:32 07:16 06:27 POC Glucose (mg/dL) 87 186 H 78 (65-110) mg/dL 07/31/18 07/31/18 Range/Units 21:05 16:17 POC Glucose (mg/dL) 305 H 273 H (65-110) mg/dL Laboratory Results - last 24 hr 07/31/18 07/31/18 08/01/18 16:17 21:05 06:27 POC Glucose (mg/dL) 273 H 305 H 78 08/01/18 08/01/18 07:16 11:32 POC Glucose (mg/dL) 186 H 87 Critical Care Progress Note - Nutrition Nutrition: Nutrition Category Date Time Status Heart Healthy Diet [DIET] Diets 07/30/18 Breakfast Active Attending/Attestation - Attestation I have personally seen and examined this patient.: Yes I have fully participated in the care of the patient.: Yes I have reviewed all pertinent clinical information: Yes
--- NOTE | 2018-07-31 15:43 | CP.PCM.PN ---
Subjective - Date & Time of Evaluation Date of Evaluation: 07/31/18 Time of Evaluation: 15:43 - Subjective Subjective: patient was prescribed by mouth Augmentin for possible due tooth infection and also lisinopril for blood pressure and Neurontin for diabetic neuropathy. Objective - Vital Signs/Intake and Output Vital Signs (last 24 hours): Temp Pulse Resp BP Pulse Ox 98.6 F 86 18 166/88 H 100 07/31/18 12:00 07/31/18 15:01 07/31/18 15:01 07/31/18 15:02 07/31/18 15:00 Intake and Output: 07/31/18 07/31/18 11:59 23:59 Intake Total 2184 Output Total 3650 Balance -1466 - Medications Medications: Current Medications Amoxicillin/Clavulanate Potassium (Augmentin 875 Mg-125 Mg Tab) 1 tab PO Q12H [facility] PRN Reason: Protocol Last Admin: 07/31/18 06:31 Dose: 1 tab Cyanocobalamin (Vitamin B12 1000 Mcg Tab) 1,000 mcg PO DAILY [facility] Last Admin: 07/31/18 09:20 Dose: 1,000 mcg Dextrose (Dextrose 50% Inj) 0 ml IV STAT PRN; Protocol PRN Reason: Hypoglycemia Protocol Dextrose (Glutose 15) 0 gm PO ONCE PRN; Protocol PRN Reason: Hypoglycemia Protocol Gabapentin (Neurontin) 400 mg PO TID [facility] Last Admin: 07/31/18 13:44 Dose: 400 mg Glucagon (Glucagen Diagnostic Kit) 0 mg IM STAT PRN; Protocol PRN Reason: Hypoglycemia Protocol Folic Acid 1 mg/ Multivitamins (/Vitamin C 10 ml/ Dextrose) 1,010.2 mls @ 42 mls/hr IV .Q24H [facility] Last Admin: 07/31/18 00:32 Dose: 42 mls/hr Dextrose/Sodium Chloride (Dextrose 5%/0.45% Ns 1000 Ml) 1,000 mls @ 100 mls/hr IV .Q10H [facility] Last Admin: 07/31/18 12:27 Dose: 100 mls/hr Dextrose (Dextrose 5% In Water 1000 Ml) 1,000 mls @ 0 mls/hr IV .Q0M PRN; Protocol; Per Protocol PRN Reason: Hypoglycemia Protocol Folic Acid 1 mg/ Sodium (Chloride) 100.2 mls @ 60 mls/hr IV DAILY [facility] Last Admin: 07/31/18 09:52 Dose: 60 mls/hr Insulin Aspart (Novolog) 0 unit SC ACHS [facility] PRN Reason: Protocol Last Admin: 07/31/18 12:28 Dose: Not Given Insulin Detemir (Levemir) 35 unit SC HS [facility] Lisinopril (Zestril) 10 mg PO DAILY [facility] Last Admin: 07/31/18 09:21 Dose: 10 mg Lorazepam (Ativan) 1 mg IVP Q6H PRN PRN Reason: Symptoms of alcohol withdrawl Last Admin: 07/30/18 21:21 Dose: 1 mg Pantoprazole Sodium (Protonix Ec Tab) 40 mg PO DAILY [facility] Last Admin: 07/31/18 09:21 Dose: 40 mg Thiamine HCl (Vitamin B1 Inj) 200 mg IV Q8H [facility] Stop: 07/31/18 17:31 Last Admin: 07/31/18 09:25 Dose: 200 mg - Labs Labs: 07/31/18 06:32 07/31/18 06:32
[2018-07-31] MEDS: Insulin Detemir 100 units/ml Vial (Levemir) SC SCH (21:20)
[2018-08-01] MEDS: (Novolog) Insulin Aspart, Recombinant 100 u/ml 10 ml vial SC SCH ×4 (08:27→21:29)
[2018-08-01] MEDS: Amoxicillin-Clav 875-125 mg Tab PO SCH ×2 (08:28→20:30)
[2018-08-01] MEDS: Pantoprazole 40 mg EC Tab PO SCH (09:41)
--- NOTE | 2018-08-01 14:44 | CP.PCM.PN ---
Subjective - Date & Time of Evaluation Date of Evaluation: 08/01/18 Time of Evaluation: 14:43 - Subjective Subjective: SUGARS IMPROVING . NO ACIDOSIS ON MAINTENANCE INSULIN Objective - Vital Signs/Intake and Output Vital Signs (last 24 hours): Temp Pulse Resp BP Pulse Ox 97.5 F L 92 H 16 143/89 100 08/01/18 12:00 07/31/18 20:30 07/31/18 20:30 08/01/18 12:00 08/01/18 12:00 Intake and Output: 08/01/18 08/01/18 11:59 23:59 Intake Total 2878 Output Total 2300 Balance 578 - Medications Medications: Current Medications Amoxicillin/Clavulanate Potassium (Augmentin 875 Mg-125 Mg Tab) 1 tab PO Q12H [facility] PRN Reason: Protocol Last Admin: 08/01/18 08:28 Dose: 1 tab Cyanocobalamin (Vitamin B12 1000 Mcg Tab) 1,000 mcg PO DAILY [facility] Last Admin: 08/01/18 09:41 Dose: 1,000 mcg Dextrose (Dextrose 50% Inj) 0 ml IV STAT PRN; Protocol PRN Reason: Hypoglycemia Protocol Dextrose (Glutose 15) 0 gm PO ONCE PRN; Protocol PRN Reason: Hypoglycemia Protocol Gabapentin (Neurontin) 400 mg PO TID [facility] Last Admin: 08/01/18 13:11 Dose: 400 mg Glucagon (Glucagen Diagnostic Kit) 0 mg IM STAT PRN; Protocol PRN Reason: Hypoglycemia Protocol Dextrose (Dextrose 5% In Water 1000 Ml) 1,000 mls @ 0 mls/hr IV .Q0M PRN; Protocol; Per Protocol PRN Reason: Hypoglycemia Protocol Folic Acid 1 mg/ Sodium (Chloride) 100.2 mls @ 60 mls/hr IV DAILY [facility] Last Admin: 08/01/18 13:11 Dose: 60 mls/hr Insulin Aspart (Novolog) 0 unit SC ACHS [facility] PRN Reason: Protocol Last Admin: 08/01/18 11:30 Dose: Not Given Insulin Detemir (Levemir) 35 unit SC HS [facility] Last Admin: 07/31/18 21:20 Dose: 35 units Lisinopril (Zestril) 10 mg PO DAILY [facility] Last Admin: 08/01/18 09:41 Dose: 10 mg Lorazepam (Ativan) 1 mg IVP Q6H PRN PRN Reason: Symptoms of alcohol withdrawl Last Admin: 07/30/18 21:21 Dose: 1 mg Pantoprazole Sodium (Protonix Ec Tab) 40 mg PO DAILY [facility] Last Admin: 08/01/18 09:41 Dose: 40 mg - Labs Labs: 07/31/18 06:32 07/31/18 06:32
[2018-08-01 20:40] LABS: OXYCODONE SCREEN negative
[2018-08-01 21:10] LABS: BASO % 0.5 % (0.0-2.0); EOS # 0.1 K/uL (0.0-0.7); HEMOGLOBIN 11.9 g/dL (11.0-16.0); LYMPH # 1.2 K/uL (1.0-4.3); LYMPH % 24.5 % (20.0-40.0); MEAN CELL VOLUME 103.1 fL (81.0-99.0); MEAN CORPUSCULAR HEMOGLOBIN 34.9 pg (27.0-31.0); MEAN CORPUSCULAR HGB CONC 33.8 g/dL (33.0-37.0); MEAN PLATELET VOLUME 10.9 fL (7.2-11.7); MONO # 0.5 K/uL (0.0-0.8); MONO % 10.6 % (0.0-10.0); NEUT % 62.4 % (50.0-75.0); RBC 3.4 Mil/uL (3.80-5.20); RED CELL DISTRIBUTION WIDTH 13.3 % (11.5-14.5); WHITE BLOOD COUNT 4.8 K/uL (4.8-10.8)
[2018-08-01] MEDS: Insulin Detemir 100 units/ml Vial (Levemir) SC SCH (21:29)
[2018-08-01 21:33] LABS: BLOOD UREA NITROGEN 11 mg/dL (7-17); CALCIUM 9.5 mg/dl (8.6-10.4); GFR NON-AFRICAN AMERICAN > 60
[2018-08-02 06:15] LABS: BASO % 0.8 % (0.0-2.0); EOS # 0.1 K/uL (0.0-0.7); EOS % 2.3 % (0.0-4.0); HEMOGLOBIN 12.6 g/dL (11.0-16.0); LYMPH # 1.4 K/uL (1.0-4.3); LYMPH % 31.1 % (20.0-40.0); MEAN CELL VOLUME 102.6 fL (81.0-99.0); MEAN CORPUSCULAR HEMOGLOBIN 35.1 pg (27.0-31.0); MEAN CORPUSCULAR HGB CONC 34.2 g/dL (33.0-37.0); MEAN PLATELET VOLUME 10.9 fL (7.2-11.7); MONO # 0.5 K/uL (0.0-0.8); MONO % 9.8 % (0.0-10.0); NEUT # 2.6 K/uL (1.8-7.0); NRBC % 0.1 % (0.0-2.0); RBC 3.6 Mil/uL (3.80-5.20); RED CELL DISTRIBUTION WIDTH 13.5 % (11.5-14.5); WHITE BLOOD COUNT 4.6 K/uL (4.8-10.8)
[2018-08-02 07:32] VITALS: RESP 18; O2SAT 99
[2018-08-02] MEDS: (Novolog) Insulin Aspart, Recombinant 100 u/ml 10 ml vial SC SCH ×2 (07:50→12:14)
[2018-08-02] MEDS: Amoxicillin-Clav 875-125 mg Tab PO SCH (08:11)
[2018-08-02] MEDS: Pantoprazole 40 mg EC Tab PO SCH (09:45)
[2018-08-02 12:53] VITALS: BP 112/68; PULSE 92; TEMP 98.4
--- NOTE | 2018-08-02 13:51 | CP.PCM.PN ---
Subjective - Date & Time of Evaluation Date of Evaluation: 08/02/18 Time of Evaluation: 11:45 - Subjective Subjective: Patient seen today, denies any abdominal pain, N/V/D , BS controlled Objective - Vital Signs/Intake and Output Vital Signs (last 24 hours): Temp Pulse Resp BP Pulse Ox 98.4 F 92 H 18 112/68 99 08/02/18 12:00 08/02/18 12:00 08/02/18 12:00 08/02/18 12:00 08/02/18 12:00 Intake and Output: 08/02/18 08/02/18 06:59 18:59 Intake Total 400 Output Total 2100 Balance -1700 - Medications Medications: Current Medications Amoxicillin/Clavulanate Potassium (Augmentin 875 Mg-125 Mg Tab) 1 tab PO Q12H [facility] PRN Reason: Protocol Last Admin: 08/02/18 08:11 Dose: 1 tab Cyanocobalamin (Vitamin B12 1000 Mcg Tab) 1,000 mcg PO DAILY [facility] Last Admin: 08/02/18 09:43 Dose: 1,000 mcg Dextrose (Dextrose 50% Inj) 0 ml IV STAT PRN; Protocol PRN Reason: Hypoglycemia Protocol Dextrose (Glutose 15) 0 gm PO ONCE PRN; Protocol PRN Reason: Hypoglycemia Protocol Gabapentin (Neurontin) 400 mg PO TID [facility] Last Admin: 08/02/18 13:29 Dose: 400 mg Glucagon (Glucagen Diagnostic Kit) 0 mg IM STAT PRN; Protocol PRN Reason: Hypoglycemia Protocol Dextrose (Dextrose 5% In Water 1000 Ml) 1,000 mls @ 0 mls/hr IV .Q0M PRN; Protocol; Per Protocol PRN Reason: Hypoglycemia Protocol Folic Acid 1 mg/ Sodium (Chloride) 100.2 mls @ 60 mls/hr IV DAILY [facility] Last Admin: 08/02/18 09:51 Dose: 60 mls/hr Insulin Aspart (Novolog) 0 unit SC ACHS [facility] PRN Reason: Protocol Last Admin: 08/02/18 12:14 Dose: 3 unit Insulin Detemir (Levemir) 35 unit SC HS [facility] Last Admin: 08/01/18 21:29 Dose: 35 units Ketorolac Tromethamine (Toradol) 10 mg PO Q6 PRN PRN Reason: for toothache Last Admin: 08/02/18 05:45 Dose: 10 mg Lisinopril (Zestril) 10 mg PO DAILY [facility] Last Admin: 08/02/18 09:44 Dose: 10 mg Lorazepam (Ativan) 1 mg IVP Q6H PRN PRN Reason: Symptoms of alcohol withdrawl Last Admin: 07/30/18 21:21 Dose: 1 mg Pantoprazole Sodium (Protonix Ec Tab) 40 mg PO DAILY [facility] Last Admin: 08/02/18 09:45 Dose: 40 mg - Labs Labs: 08/02/18 06:08 08/01/18 21:03 Assessment and Plan - Assessment and Plan (Free Text) Assessment: A/P 42 y/o with pmx of DM on insulin lantus and novalog admitted to with intoxication and DKA Patient clinically improved with insulin drip and DKA resolved and labs wnl with no evidence of ketosis BS controlled and stable d/w Dr. Daniel, cleared for discharge home today and f/u with his office in 1 week discharge instructions discussed with patient who understands and agrees with plan , patient instructed to returns to ED if symptoms returns or any other concerning symptoms All rx for insulin and accucheck machine rx given
--- NOTE | 2018-08-02 14:08 | CP.PCM.DIS ---
Provider - Provider Date of Admission: 07/30/18 00:19 Attending physician: Yrn Daniel MD Time Spent in preparation of Discharge (in minutes): 36 Hospital Course - Lab Results Lab Results: Micro Results 07/30/18 08:35 Blood Blood Culture - Preliminary NO GROWTH AFTER 3 DAYS 07/30/18 08:35 Blood Blood Culture - Preliminary NO GROWTH AFTER 3 DAYS 07/30/18 06:27 Nose MRSA Culture (Admit) - Final MRSA NOT DETECTED 07/30/18 00:55 Urine Urine Culture - Final No Growth (<1,000 CFU/ML) Most Recent Lab Values WBC 4.6 K/uL (4.8-10.8) L 08/02/18 06:08 RBC 3.60 Mil/uL (3.80-5.20) L 08/02/18 06:08 Hgb 12.6 g/dL (11.0-16.0) 08/02/18 06:08 Hct 36.9 % (34.0-47.0) 08/02/18 06:08 MCV 102.6 fL (81.0-99.0) H 08/02/18 06:08 MCH 35.1 pg (27.0-31.0) H 08/02/18 06:08 MCHC 34.2 g/dL (33.0-37.0) 08/02/18 06:08 RDW 13.5 % (11.5-14.5) 08/02/18 06:08 Plt Count 139 K/uL (130-400) 08/02/18 06:08 MPV 10.9 fL (7.2-11.7) 08/02/18 06:08 Neut % (Auto) 56.0 % (50.0-75.0) 08/02/18 06:08 Lymph % (Auto) 31.1 % (20.0-40.0) 08/02/18 06:08 [place] % (Auto) 9.8 % (0.0-10.0) 08/02/18 06:08 Eos % (Auto) 2.3 % (0.0-4.0) 08/02/18 06:08 Baso % (Auto) 0.8 % (0.0-2.0) 08/02/18 06:08 Neut # (Auto) 2.6 K/uL (1.8-7.0) 08/02/18 06:08 Lymph # (Auto) 1.4 K/uL (1.0-4.3) 08/02/18 06:08 [place] # (Auto) 0.5 K/uL (0.0-0.8) 08/02/18 06:08 Eos # (Auto) 0.1 K/uL (0.0-0.7) 08/02/18 06:08 Baso # (Auto) 0.0 K/uL (0.0-0.2) 08/02/18 06:08 pO2 31 mm/Hg (30-55) 07/30/18 00:39 VBG pH 7.30 (7.32-7.43) L 07/30/18 00:39 VBG pCO2 40 mmHg (40-60) 07/30/18 00:39 VBG HCO3 18.8 mmol/L 07/30/18 00:39 VBG Total CO2 20.9 mmol/L (22-28) L 07/30/18 00:39 VBG O2 Sat (Calc) 54.8 % (40-65) 07/30/18 00:39 VBG Base Excess -6.3 mmol/L (0.0-2.0) L 07/30/18 00:39 VBG Potassium 4.0 mmol/L (3.6-5.2) 07/30/18 00:39 Sodium 142.0 mmol/l (132-148) 07/30/18 00:39 Chloride 105.0 mmol/L (98-107) 07/30/18 00:39 Glucose 510 mg/dl (65-105) H* D 07/30/18 00:39 Lactate 2.8 mmol/L (0.7-2.1) H 07/30/18 00:39 Crit Value Called To Smith reddy rn 07/30/18 00:39 Crit Value Called By Tran moise 07/30/18 00:39 Crit Value Read Back Y 07/30/18 00:39 Blood Gas Notified Time 56 07/30/18 00:39 Sodium 136 mmol/L (132-148) 08/01/18 21:03 Potassium 4.8 mmol/L (3.6-5.2) 08/01/18 21:03 Chloride 101 mmol/L (98-107) 08/01/18 21:03 Carbon Dioxide 25 mmol/L (22-30) 08/01/18 21:03 Anion Gap 15 (10-20) 08/01/18 21:03 BUN 11 mg/dL (7-17) 08/01/18 21:03 Creatinine 0.8 mg/dL (0.7-1.2) 08/01/18 21:03 Est GFR ( Amer) > 60 08/01/18 21:03 Est GFR (Non-Af Amer) > 60 08/01/18 21:03 POC Glucose (mg/dL) 249 mg/dL (65-110) H 08/02/18 11:37 Random Glucose 192 mg/dL (65-105) H 08/01/18 21:03 Hemoglobin A1c 11.7 % (4.2-6.5) H 07/30/18 01:36 Calcium 9.5 mg/dl (8.6-10.4) 08/01/18 21:03 Phosphorus 3.7 mg/dL (2.5-4.5) 07/31/18 06:32 Magnesium 1.7 mg/dL (1.6-2.3) 07/31/18 06:32 Total Bilirubin 0.3 mg/dL (0.2-1.3) 07/31/18 06:32 AST 19 U/L (14-36) 07/31/18 06:32 ALT 30 U/L (9-52) 07/31/18 06:32 Alkaline Phosphatase 60 U/L (38-126) 07/31/18 06:32 NT-Pro-B Natriuret Pep 82.7 pg/mL (0-450) 07/30/18 01:36 Total Protein 5.4 g/dL (6.3-8.3) L 07/31/18 06:32 Albumin 3.0 g/dL (3.5-5.0) L 07/31/18 06:32 Globulin 2.4 gm/dL (2.2-3.9) 07/31/18 06:32 Albumin/Globulin Ratio 1.2 (1.0-2.1) 07/31/18 06:32 TSH 3rd Generation 1.07 mIU/L (0.46-4.68) 07/30/18 01:36 Beta HCG, Quant < 2.39 mIU/ML 07/29/18 23:36 Venous Blood Potassium 4.0 mmol/L (3.6-5.2) 07/30/18 00:39 Urine Color Straw (YELLOW) 07/31/18 06:34 Urine Clarity Clear (Clear) 07/31/18 06:34 Urine pH 6.0 (5.0-8.0) 07/31/18 06:34 Ur Specific [place] 1.005 (1.003-1.030) 07/31/18 06:34 Urine Protein Negative mg/dL (NEGATIVE) 07/31/18 06:34 Urine Glucose (UA) 3+ mg/dL (Normal) H 07/31/18 06:34 Urine Ketones Negative mg/dL (NEGATIVE) 07/31/18 06:34 Urine Blood 2+ (NEGATIVE) H 07/31/18 06:34 Urine Nitrate Negative (NEGATIVE) 07/31/18 06:34 Urine Bilirubin Negative (NEGATIVE) 07/31/18 06:34 Urine Urobilinogen Normal mg/dL (0.2-1.0) 07/31/18 06:34 Ur Leukocyte Esterase Neg [place]/uL (Negative) 07/31/18 06:34 Urine WBC (Auto) 1 /hpf (0-5) 07/31/18 06:34 Urine RBC (Auto) 4 /hpf (0-3) H 07/31/18 06:34 Ur Squamous Epith Cells 7 /hpf (0-5) H 07/31/18 06:34 Urine Bacteria Rare (<OCC) 07/31/18 06:34 Urine Opiates Screen Negative (NEGATIVE) 07/30/18 01:58 Oxycodone Screen negative 07/30/18 09:12 Ur Oxycodone Comment See note 07/30/18 09:12 Urine Methadone Screen Negative (NEGATIVE) 07/30/18 01:58 Ur Barbiturates Screen Negative (NEGATIVE) 07/30/18 01:58 Ur Phencyclidine Scrn Negative (NEGATIVE) 07/30/18 01:58 Ur Amphetamines Screen Negative (NEGATIVE) 07/30/18 01:58 U Benzodiazepines Scrn Negative (NEGATIVE) 07/30/18 01:58 U Oth Cocaine Metabols Negative (NEGATIVE) 07/30/18 01:58 U Cannabinoids Screen Negative (NEGATIVE) 07/30/18 01:58 Alcohol, Quantitative 263 mg/dl (0-10) H 07/29/18 23:36 B-Hydroxybutyrate 2.74 mM (0.02-0.27) H 07/29/18 23:36 - Hospital Course Hospital Course: Patient was brought to the emergency room agitated and slightly confused. Evaluation showed the patient had a sugar of 661 with positive ketones beta hydroxy butyric acid positive. Patient was admitted in ICU for DKA. As per the patient patient had some wine before she went for the dinner and during the dinner. Patient took some unknown amount of alcohol and since then patient became more disoriented and agitated. Patient has a history of diabetes on insulin recently has been noncompliant Patient will continue with IV fluids and insulin drip because frequent hypoglycemia and did report discontinuing the patient was put on maintenance insulin patient's sugar stabilized and patient had a high blood pressure lisinopril was given. Patient also has a 2 day was given some prophylactic Augmentin antibiotic. Patient currently stable with normal sugar no acidosis will be discharged on long-acting insulin and given instruction for follow-up one week in the office. Discharge Exam - Head Exam Head Exam: ATRAUMATIC, NORMAL INSPECTION, NORMOCEPHALIC Discharge Plan - Discharge Medications Prescriptions: Blood-Glucose Meter [Accu-Chek [place] Plus] 1 each ACHS #1 each Blood Sugar Diagnostic, Drum [Accu-Chek Compact] 1 each ACHS 30 Days strip Lancets [Accu-Chek Fastclix] 1 each [facility] 30 Days each Folic Acid 1 mg PO DAILY #30 tab Insulin Glargine,Hum.rec.anlog [Lantus Solostar] 30 unit SQ HS #5 insuln.pen Multivitamin [Multi-Vitamin Daily] 1 each PO DAILY #30 tablet Thiamine [Vitamin B1 Tab] 50 mg PO DAILY #30 tab Lisinopril [Zestril] 10 mg PO DAILY #30 tab - Follow Up Plan Condition: GUARDED Disposition: HOME/ ROUTINE Instructions: Diabetic Ketoacidosis (DC), Diabetic Ketoacidosis (GEN) Additional Instructions: Please f/u with Dr. Daniel office in 1 week- call and make appointment. Please call continue medication as per med. rec. Please do accucheck before meals
--- NOTE | 2018-08-02 22:15 | CARD ---
APPROVED REPORT Date of service: 07/29/2018 EKG Measurement Heart [id number] <Conclusion> Normal sinus rhythm Non-specific ST-T changes.
== END 2018-08-02 13:45 | disposition home or self-care (01) | DRG 638 ==
LOC: C.ER 22:28 → C.6T 07-30 00:19 → C.9I 07-30 04:40
PROVIDERS: ADMIT Internal Medicine Cardiovascular Disease; ATTEND Internal Medicine Cardiovascular Disease
DX: E10.10 Type 1 diabetes mellitus with ketoacidosis without coma (principal); F10.230 Alcohol dependence with withdrawal, uncomplicated; F10.220 Alcohol dependence with intoxication, uncomplicated; Y90.8 Blood alcohol level of 240 mg/100 ml or more; E10.649 Type 1 diabetes mellitus with hypoglycemia without coma; I10 Essential (primary) hypertension; Z79.4 Long term (current) use of insulin; F17.210 Nicotine dependence, cigarettes, uncomplicated; Z91.14 Patient's other noncompliance with medication regimen; R41.0 Disorientation, unspecified

== ENCOUNTER 2019-02-05 10:54 | Inpatient (IN) | payer OTHER ==
--- NOTE | 2019-02-05 11:51 | C.PDOC ---
History Of Present Illness 43 y/o female, with history of diabetes, comes in complaining of some episodes of vomiting since 2 days ago, associated with chest tightness, palpitations, and dizziness. Patient reports she hasnt been taking her insulin for 1 month now because she currently has no PMD. She did take aspirin for the chest tightness with some relief. Patient denies any fever, chills, abdominal pain, headache, SOB, or other symptoms. Time Seen by Provider: 02/05/19 11:42 Chief Complaint (Nursing): Chest Pain History Per: Patient History/Exam Limitations: no limitations Onset/Duration Of Symptoms: Days Current Symptoms Are (Timing): Still Present Quality: Tightness Past Medical History Reviewed: Historical Data, Nursing Documentation, Vital Signs Vital Signs: Last Vital Signs Temp 97.8 F 02/05/19 10:59 Pulse 110 H 02/05/19 10:59 Resp 20 02/05/19 10:59 BP 150/94 H 02/05/19 10:59 Pulse Ox 99 02/05/19 10:59 - Medical History PMH: Diabetes Denies: Chronic Kidney Disease - [facility] Procedures OTH WOUND IRRIGATION (10/10/13) OTHER LOCAL DESTRUC SKIN (03/14/15) OTHER SKIN & SUBQ I D (01/18/15) VACCINATION NEC (01/18/15) Family History: States: No Known Family Hx - Social History Hx Tobacco Use: No Hx Alcohol Use: Yes (socially) Hx Substance Use: No - Immunization History Hx Tetanus Toxoid Vaccination: No Hx Influenza Vaccination: No Hx Pneumococcal Vaccination: No Review Of Systems Except As Marked, All Systems Reviewed And Found Negative. Constitutional: Negative for: Fever, Chills Cardiovascular: Positive for: Palpitations, Other (Chest tightness) Respiratory: Negative for: Shortness of Breath Gastrointestinal: Positive for: Vomiting. Negative for: Abdominal Pain Neurological: Positive for: Dizziness. Negative for: Headache Physical Exam - Physical Exam Appears: Non-toxic, No Acute Distress Skin: Warm, Dry Head: Atraumatic, Normacephalic Eye(s): bilateral: PERRL, EOMI, Other (conjunctiva clear) Oral Mucosa: Moist Neck: Supple Chest: Symmetrical, No Tenderness Cardiovascular: Rhythm Regular, No Murmur Respiratory: Decreased Breath Sounds, No Rales, No Rhonchi, No Wheezing Gastrointestinal/Abdominal: Soft, No Tenderness Extremity: Bilateral: Atraumatic, Normal Color And Temperature, Other (no edema or cyanosis) Pulses: Left Dorsalis Pedis: Normal, Right Dorsalis Pedis: Normal Neurological/Psych: Oriented x3, Normal Speech, Normal Motor (5/5 motor strength), Normal Sensation, Other (GCS 15, CN 2-12 intact) ED Course And Treatment - Laboratory Results Result Diagrams: 02/05/19 12:01 02/05/19 12:01 ECG: Interpreted By Me, Viewed By Me ECG Rhythm: Sinus Tachycardia Interpretation Of ECG: Normal intervals. Normal axis. No ST elevations. Rate From EC O2 Sat by Pulse Oximetry: 99 (RA) Pulse Ox Interpretation: Normal - Other Rad CXR X-Ray: Read By Radiologist Interpretation: IMPRESSION: No active disease. Medical Decision Making Medical Decision Making: Plan: --Bloodwork --Chest XR --UA --Aspirin 162 mg PO --IV fluids 1L 13:[address] Natalie Casey, [employer] machinist, who accepts patient. Will put orders in. Disposition - Disposition Forms: [employer] (Bengali) - Scribe Statement The provider has reviewed the documentation as recorded by the Kumaribmaureen Ortiz Provider Attestation: All medical record entries made by the Scribe were at my direction and personally dictated by me. I have reviewed the chart and agree that the record accurately reflects my personal performance of the history, physical exam, [facility] decision making, and the department course for this patient. I have also personally directed, reviewed, and agree with the discharge instructions and disposition.
[2019-02-05] MEDS ORDERED: Sodium Chloride 0.9% 1,000 ML IV ONE (11:53)
[2019-02-05] MEDS ORDERED: Sodium Chloride 0.9% 1,000 ML ONE (12:04)
[2019-02-05 12:11] LABS: BASO % 0.8 % (0.0-2.0); EOS # 0.1 K/uL (0.0-0.7); LYMPH # 1.3 K/uL (1.0-4.3); LYMPH % 23.7 % (20.0-40.0); MEAN CORPUSCULAR HEMOGLOBIN 34.3 pg (27.0-31.0); MEAN PLATELET VOLUME 11.7 fL (7.2-11.7); MONO # 0.5 K/uL (0.0-0.8); MONO % 9.6 % (0.0-10.0); NEUT # 3.6 K/uL (1.8-7.0); NEUT % 64.9 % (50.0-75.0); RBC 4.27 Mil/uL (3.80-5.20); RED CELL DISTRIBUTION WIDTH 12.5 % (11.5-14.5); WHITE BLOOD COUNT 5.6 K/uL (4.8-10.8)
[2019-02-05 12:14] LABS: HEMOGLOBIN 14.6 g/dL (11.0-16.0)
[2019-02-05 12:19] LABS: ALB/GLOB RATIO 2.1 (1.0-2.1); ALBUMIN 4.8 g/dL (3.5-5.0); ALT/SGPT 35 U/L (9-52); AST/SGOT 30 U/L (14-36); BLOOD UREA NITROGEN 10 mg/dL (7-17); CALCIUM 9.4 mg/dl (8.6-10.4); GFR NON-AFRICAN AMERICAN > 60; LIPASE 107 U/L (23-300)
[2019-02-05 12:31] LABS: B-TYPE NATRIURETIC PEPTIDE 66.8 pg/mL (0-450)
[2019-02-05 13:21] LABS: SQUAMOUS EPITHIAL 2 /hpf (0-5); URINE BILIRUBIN NEGATIVE (NEGATIVE); URINE BLOOD NEGATIVE (NEGATIVE); URINE CLARITY Hazy (Clear); URINE COLOR Straw (YELLOW); URINE GLUCOSE (UA) 3+ mg/dL (Normal); URINE LEUKOCYTE ESTERASE NEG Leu/uL (Negative); URINE PROTEIN NEGATIVE (NEGATIVE); URINE UROBILINOGEN NORMAL mg/dL (0.2-1.0)
--- NOTE | 2019-02-05 13:29 | RAD ---
Date of service: 02/05/2019 PROCEDURE: CHEST RADIOGRAPH, 1 VIEW HISTORY: chest pain COMPARISON: Comparison is made with 07/30/2018 FINDINGS: LUNGS: Clear. PLEURA: No pneumothorax or pleural fluid seen. CARDIOVASCULAR: No aortic atherosclerotic calcification present. Normal. OSSEOUS STRUCTURES: No significant abnormalities. VISUALIZED UPPER ABDOMEN: Normal. OTHER FINDINGS: None. IMPRESSION: No active disease.
[2019-02-05] MEDS ORDERED: (Novolin R) Insulin Human Regular 100 units/ml vial ONE (14:14)
[2019-02-05] MEDS ORDERED: (Novolin R) Insulin Human Regular 100 units/ml vial IVP ONE (14:30)
--- NOTE | 2019-02-05 16:02 | CP.PCM.HP ---
Past Patient History - Infectious Disease Hx of Infectious Diseases: None - Tetanus Immunizations Tetanus Immunization: Unknown - Past Medical History & Family History Past Medical History?: Yes - Past Social History Smoking Status: Light Smoker < 10 Cigarettes Daily - CARDIAC Hx Cardiac Disorders: No - PULMONARY Hx Respiratory Disorders: No - NEUROLOGICAL Hx Neurological Disorder: No - HEENT Hx HEENT Problems: No - RENAL Hx Chronic Kidney Disease: No - ENDOCRINE/METABOLIC Hx Endocrine Disorders: Yes Hx Diabetes Mellitus Type 1: Yes - HEMATOLOGICAL/ONCOLOGICAL Hx Blood Disorders: No - INTEGUMENTARY Hx Dermatological Problems: No - MUSCULOSKELETAL/RHEUMATOLOGICAL Hx Musculoskeletal Disorders: No Hx Falls: No - GASTROINTESTINAL Hx Gastrointestinal Disorders: No - GENITOURINARY/GYNECOLOGICAL Hx Genitourinary Disorders: No - PSYCHIATRIC Hx Psychophysiologic Disorder: No Hx Substance Use: No - SURGICAL HISTORY Hx Surgeries: Yes Hx Tubal Ligation: Yes Other/Comment: I&D OF LEFT AXILLA 01/21/15 - ANESTHESIA Hx Anesthesia: Yes Hx Anesthesia Reactions: No Hx Malignant Hyperthermia: No Has any member of the family had a problem w/ anesthesia?: No Meds Allergies/Adverse Reactions: Allergies Allergy/AdvReac Type Severity Reaction Status Date / Time No Known Allergies Allergy Verified 02/05/19 11:02 Physical Exam - Constitutional Appears: Well - Head Exam Head Exam: ATRAUMATIC, NORMAL INSPECTION, NORMOCEPHALIC - Eye Exam Eye Exam: EOMI, Normal appearance, PERRL Pupil Exam: NORMAL ACCOMODATION, PERRL - ENT Exam ENT Exam: Mucous Membranes Moist, Normal Exam - Neck Exam Neck exam: Positive for: Normal Inspection - Respiratory Exam Respiratory Exam: Decreased Breath Sounds - Cardiovascular Exam Cardiovascular Exam: REGULAR RHYTHM, +S1, +S2 - GI/Abdominal Exam GI & Abdominal Exam: Diminished Bowel Sounds, Soft - Rectal Exam Rectal Exam: Deferred Results - Vital Signs Recent Vital Signs: Last Vital Signs Temp 97.5 F L 02/05/19 15:00 Pulse 96 H 02/05/19 15:00 Resp 20 02/05/19 15:00 BP 113/74 02/05/19 15:00 Pulse Ox 95 02/05/19 15:00 - Labs Result Diagrams: 02/05/19 12:01 02/05/19 12:01 Labs: Laboratory Results - last 24 hr 02/05/19 02/05/19 02/05/19 12:01 12:01 12:09 WBC 5.6 RBC 4.27 Hgb 14.6 D Hct 44.4 MCV 104.0 H MCH 34.3 H MCHC 33.0 RDW 12.5 Plt Count 149 MPV 11.7 Neut % (Auto) 64.9 Lymph % (Auto) 23.7 [place] % (Auto) 9.6 Eos % (Auto) 1.0 Baso % (Auto) 0.8 Neut # (Auto) 3.6 Lymph # (Auto) 1.3 [place] # (Auto) 0.5 Eos # (Auto) 0.1 Baso # (Auto) 0.0 Sodium 134 Potassium 4.6 Chloride 95 L Carbon Dioxide 17 L Anion Gap 26 H BUN 10 Creatinine 0.5 L Est GFR ( Amer) > 60 Est GFR (Non-Af Amer) > 60 Random Glucose 266 H D Calcium 9.4 Total Bilirubin 0.9 AST 30 ALT 35 Alkaline Phosphatase 93 Troponin I < 0.0120 NT-Pro-B Natriuret Pep 66.8 Total Protein 7.1 Albumin 4.8 Globulin 2.3 Albumin/Globulin Ratio 2.1 Lipase 107 Urine Color Urine Clarity Urine pH Ur Specific [place] Urine Protein Urine Glucose (UA) Urine Ketones Urine Blood Urine Nitrate Urine Bilirubin Urine Urobilinogen Ur Leukocyte Esterase Urine RBC (Auto) Ur Squamous Epith Cells Urine HCG, Qual Negative 02/05/19 12:50 WBC RBC Hgb Hct MCV MCH MCHC RDW Plt Count MPV Neut % (Auto) Lymph % (Auto) [place] % (Auto) Eos % (Auto) Baso % (Auto) Neut # (Auto) Lymph # (Auto) [place] # (Auto) Eos # (Auto) Baso # (Auto) Sodium Potassium Chloride Carbon Dioxide Anion Gap BUN Creatinine Est GFR ( Amer) Est GFR (Non-Af Amer) Random Glucose Calcium Total Bilirubin AST ALT Alkaline Phosphatase Troponin I NT-Pro-B Natriuret Pep Total Protein Albumin Globulin Albumin/Globulin Ratio Lipase Urine Color Straw Urine Clarity Hazy Urine pH 5.0 Ur Specific [place] 1.010 Urine Protein Negative Urine Glucose (UA) 3+ H Urine Ketones 2+ H Urine Blood Negative Urine Nitrate Negative Urine Bilirubin Negative Urine Urobilinogen Normal Ur Leukocyte Esterase Neg Urine RBC (Auto) < 1 Ur Squamous Epith Cells 2 Urine HCG, Qual
--- NOTE | 2019-02-05 16:38 | CP.PCM.CON ---
History of Present Illness - History of Present Illness History of Present Illness: Consultation for evaluation of chest pain HPI: 43-year-old female with past medical history of diabetes presenting with complaints of emesis and epigastric discomfort ongoing for 2 days prior to presentation patient had out of her insulin about a month ago and not not been able to refill secondary to no insurance and no PMD patient takes some aspirin with mild relief been having any fever chills or shortness of breath. Review of Systems - Review of Systems Systems not reviewed;Unavailable: Acuity of Condition - Constitutional Constitutional: As Per HPI - EENT Eyes: As Per HPI Ears: As Per HPI Nose/Mouth/Throat: As Per HPI - Breasts Breasts: As Per HPI - Cardiovascular Cardiovascular: As Per HPI - Respiratory Respiratory: As Per HPI - Gastrointestinal Gastrointestinal: As Per HPI - Genitourinary Genitourinary: As Per HPI - Reproductive: Female Reproductive:Female: As Per HPI - Menstruation Menstruation: As Per HPI - Musculoskeletal Musculoskeletal: As Per HPI - Integumentary Integumentary: As Per HPI - Neurological Neurological: As Per HPI - Psychiatric Psychiatric: As Per HPI - Endocrine Endocrine: As Per HPI - Hematologic/Lymphatic Hematologic: As Per HPI Past Patient History - Infectious Disease Hx of Infectious Diseases: None - Tetanus Immunizations Tetanus Immunization: Unknown - Past Medical History & Family History Past Medical History?: Yes - Past Social History Smoking Status: Light Smoker < 10 Cigarettes Daily - CARDIAC Hx Cardiac Disorders: No - PULMONARY Hx Respiratory Disorders: No - NEUROLOGICAL Hx Neurological Disorder: No - HEENT Hx HEENT Problems: No - RENAL Hx Chronic Kidney Disease: No - ENDOCRINE/METABOLIC Hx Endocrine Disorders: Yes Hx Diabetes Mellitus Type 1: Yes - HEMATOLOGICAL/ONCOLOGICAL Hx Blood Disorders: No - INTEGUMENTARY Hx Dermatological Problems: No - MUSCULOSKELETAL/RHEUMATOLOGICAL Hx Musculoskeletal Disorders: No Hx Falls: No - GASTROINTESTINAL Hx Gastrointestinal Disorders: No - GENITOURINARY/GYNECOLOGICAL Hx Genitourinary Disorders: No - PSYCHIATRIC Hx Psychophysiologic Disorder: No Hx Substance Use: No - SURGICAL HISTORY Hx Surgeries: Yes Hx Tubal Ligation: Yes Other/Comment: I&D OF LEFT AXILLA 01/21/15 - ANESTHESIA Hx Anesthesia: Yes Hx Anesthesia Reactions: No Hx Malignant Hyperthermia: No Has any member of the family had a problem w/ anesthesia?: No Meds Allergies/Adverse Reactions: Allergies Allergy/AdvReac Type Severity Reaction Status Date / Time No Known Allergies Allergy Verified 02/05/19 11:02 - Medications Medications: Current Medications Aspirin (Ecotrin) 81 mg PO DAILY [facility] Clopidogrel Bisulfate (Plavix) 75 mg PO DAILY [facility] Enoxaparin Sodium (Lovenox) 40 mg SC DAILY [facility] Insulin Aspart (Novolog) 0 unit SC ACHS [facility]; Protocol Insulin Glargine (Lantus) 30 unit SC HS [facility] Morphine Sulfate (Morphine) 2 mg IVP Q6H PRN PRN Reason: Pain, severe (8-10) Pantoprazole Sodium (Protonix Ec Tab) 40 mg PO DAILY [facility] Physical Exam - Constitutional Appears: Well - Head Exam Head Exam: ATRAUMATIC, NORMAL INSPECTION, NORMOCEPHALIC - Eye Exam Eye Exam: EOMI, Normal appearance, PERRL Pupil Exam: NORMAL ACCOMODATION, PERRL - ENT Exam ENT Exam: Mucous Membranes Moist, Normal Exam - Neck Exam Neck exam: Positive for: Normal Inspection - Respiratory Exam Respiratory Exam: Clear to Auscultation Bilateral, NORMAL BREATHING PATTERN - Cardiovascular Exam Cardiovascular Exam: REGULAR RHYTHM - GI/Abdominal Exam GI & Abdominal Exam: Normal Bowel Sounds, Soft. absent: Tenderness - Extremities Exam Extremities exam: Positive for: normal inspection - Back Exam Back exam: NORMAL INSPECTION - Neurological Exam Neurological exam: Alert, CN II-XII Intact, Normal Gait, Oriented x3, Reflexes Normal - Psychiatric Exam Psychiatric exam: Normal Affect, Normal Mood - Skin Skin Exam: Dry, Intact, Normal Color, Warm Results - Vital Signs Recent Vital Signs: Last Vital Signs Temp 97.5 F L 02/05/19 15:00 Pulse 99 H 02/05/19 16:31 Resp 20 02/05/19 15:00 BP 113/74 02/05/19 15:00 Pulse Ox 95 02/05/19 15:00 - Labs Result Diagrams: 02/05/19 12:01 02/05/19 12:01 Labs: Laboratory Results - last 24 hr 02/05/19 02/05/19 02/05/19 12:01 12:01 12:09 WBC 5.6 RBC 4.27 Hgb 14.6 D Hct 44.4 MCV 104.0 H MCH 34.3 H MCHC 33.0 RDW 12.5 Plt Count 149 MPV 11.7 Neut % (Auto) 64.9 Lymph % (Auto) 23.7 [place] % (Auto) 9.6 Eos % (Auto) 1.0 Baso % (Auto) 0.8 Neut # (Auto) 3.6 Lymph # (Auto) 1.3 [place] # (Auto) 0.5 Eos # (Auto) 0.1 Baso # (Auto) 0.0 Sodium 134 Potassium 4.6 Chloride 95 L Carbon Dioxide 17 L Anion Gap 26 H BUN 10 Creatinine 0.5 L Est GFR ( Amer) > 60 Est GFR (Non-Af Amer) > 60 POC Glucose (mg/dL) Random Glucose 266 H D Calcium 9.4 Total Bilirubin 0.9 AST 30 ALT 35 Alkaline Phosphatase 93 Troponin I < 0.0120 NT-Pro-B Natriuret Pep 66.8 Total Protein 7.1 Albumin 4.8 Globulin 2.3 Albumin/Globulin Ratio 2.1 Lipase 107 Urine Color Urine Clarity Urine pH Ur Specific [place] Urine Protein Urine Glucose (UA) Urine Ketones Urine Blood Urine Nitrate Urine Bilirubin Urine Urobilinogen Ur Leukocyte Esterase Urine RBC (Auto) Ur Squamous Epith Cells Urine HCG, Qual Negative 02/05/19 02/05/19 12:50 16:18 WBC RBC Hgb Hct MCV MCH MCHC RDW Plt Count MPV Neut % (Auto) Lymph % (Auto) [place] % (Auto) Eos % (Auto) Baso % (Auto) Neut # (Auto) Lymph # (Auto) [place] # (Auto) Eos # (Auto) Baso # (Auto) Sodium Potassium Chloride Carbon Dioxide Anion Gap BUN Creatinine Est GFR ( Amer) Est GFR (Non-Af Amer) POC Glucose (mg/dL) 368 H Random Glucose Calcium Total Bilirubin AST ALT Alkaline Phosphatase Troponin I NT-Pro-B Natriuret Pep Total Protein Albumin Globulin Albumin/Globulin Ratio Lipase Urine Color Straw Urine Clarity Hazy Urine pH 5.0 Ur Specific [place] 1.010 Urine Protein Negative Urine Glucose (UA) 3+ H Urine Ketones 2+ H Urine Blood Negative Urine Nitrate Negative Urine Bilirubin Negative Urine Urobilinogen Normal Ur Leukocyte Esterase Neg Urine RBC (Auto) < 1 Ur Squamous Epith Cells 2 Urine HCG, Qual Assessment & Plan (1) Atypical chest pain Assessment and Plan: serial TnI echo asa bb statins telemetry Status: Acute (2) DKA (diabetic ketoacidoses) Assessment and Plan: insulin rx Status: Acute (3) HTN (hypertension) Status: Acute
[2019-02-05] MEDS: (Novolog) Insulin Aspart, Recombinant 100 u/ml 10 ml vial SC SCH ×2 (17:28→21:45)
[2019-02-05] MEDS: (Lantus) Insulin Glargine, Recombinant SC SCH (21:44)
[2019-02-06 02:06] LABS: CK-MB 1.31 ng/mL (0.0-3.38)
[2019-02-06] MEDS: (Novolog) Insulin Aspart, Recombinant 100 u/ml 10 ml vial SC SCH ×4 (08:30→21:46)
--- NOTE | 2019-02-06 08:31 | CP.PCM.PN ---
Subjective - Date & Time of Evaluation Date of Evaluation: 02/06/19 Time of Evaluation: 08:31 - Subjective Subjective: Medicine Progress Note - Dr Natalie Casey's Service Patient is a 43 year old female with past medical history of insulin dependant diabetes mellitus who presented to the emergency department for chest tightness that started yesterday. She reports feeling like an elephant is sitting on her chest. Patient states that this has happened to her before in the past. She last had a stress test in 2016 that was negative. Patient had felt weak, dizzines, nauseous over the weekend with multiple episodes of vomiting over the weekend. She has not been taking her insulin for the past month because she has been unable to afford it. States that she was diagnosed with diabetes 6-7 years ago. She admits to numbness and tingling in the toes and left fingers in addition to blurry vision. Currently she still admits to feeling chest tightness that has not improved since admission. She denies headaches, dizziness, palpitations, sob, abdominal pain, urinary symptoms, changes in bowel habits. Allergies: NKDA Medications: See MAR Medical History: Diabetes Mellitus Surgical History: BTL Social History: smokes 4 cig/day, drinks alcohol occasionally, denies drug use Family History: Grandfather - CVA Objective - Vital Signs/Intake and Output Vital Signs (last 24 hours): Temp Pulse Resp BP Pulse Ox 97.1 F L 85 20 107/73 98 02/06/19 08:00 02/06/19 08:00 02/06/19 08:00 02/06/19 08:00 02/06/19 08:00 Intake and Output: 02/06/19 02/06/19 06:59 18:59 Intake Total 461 Balance 461 - Medications Medications: Current Medications Aspirin (Ecotrin) 81 mg PO DAILY [facility] Clopidogrel Bisulfate (Plavix) 75 mg PO DAILY [facility] Enoxaparin Sodium (Lovenox) 40 mg SC DAILY [facility] Insulin Aspart (Novolog) 0 unit SC ACHS [facility]; Protocol Last Admin: 02/05/19 21:45 Dose: 2 units Insulin Glargine (Lantus) 30 unit SC HS [facility] Last Admin: 02/05/19 21:44 Dose: 30 units Metoprolol Succinate (Toprol Xl) 12.5 mg PO DAILY [facility] Morphine Sulfate (Morphine) 2 mg IVP Q6H PRN PRN Reason: Pain, severe (8-10) Last Admin: 02/05/19 23:54 Dose: 2 mg Pantoprazole Sodium (Protonix Ec Tab) 40 mg PO DAILY [facility] Rosuvastatin Calcium (Crestor) 20 mg PO HS [facility] - Labs Labs: 02/05/19 12:01 02/05/19 12:01 - Constitutional Appears: Toxic, No Acute Distress - Head Exam Head Exam: ATRAUMATIC, NORMAL INSPECTION, NORMOCEPHALIC - Eye Exam Eye Exam: EOMI, Normal appearance - ENT Exam ENT Exam: Mucous Membranes Moist - Respiratory Exam Respiratory Exam: Clear to Ausculation Bilateral, NORMAL BREATHING PATTERN. absent: Rales, Rhonchi, Wheezes - Cardiovascular Exam Cardiovascular Exam: REGULAR RHYTHM, +S1, +S2 Additional comments: Chest pain not reproducible on palpation - GI/Abdominal Exam GI & Abdominal Exam: Soft. absent: Guarding, Rigid, Tenderness - Extremities Exam Extremities Exam: Normal Inspection Additional comments: Pedal pulses intact bilaterally, decreased sensation in both feet - Back Exam Back Exam: NORMAL INSPECTION - Neurological Exam Neurological Exam: Alert, Awake, Oriented x3 - Psychiatric Exam Psychiatric exam: Normal Affect, Normal Mood - Skin Skin Exam: Dry, Normal Color, Warm Assessment and Plan - Assessment and Plan (Free Text) Assessment: Chest Tightness, r/o ACS -Monitor on telemetry -Troponins negative x 3 -Continue ASA 81mg and Plavix 75mg PO daily -On crestor 20mg PO HS, Toprol XL 12.5mg PO daily -Patient for possible stress test tomorrow morning -Echocardiogram ordered -Cardiology on consult, Dr Harris, help appreciated Diabetes Mellitus -Hemoglobin A1C 11.4 -Restarted on Lantus 30units HS -Insulin sliding scale and accuchecks ACHS Peripheral neuropathy -Started on Gabapentin 300mg PO HS Tobacco use -Patient counselled on tobacco cessation Dizziness -CT head: No acute intracranial abnormality. Mild chronic microvascular ischemic changes. Punctate hypodensity in the left basal ganglia suggestive for a prominent perivascular space versus punctate lacunar infarct. Clinical correlation. (see full report) Hypokalemia -Repleted, Continue to monitor GI/DVT ppx : Protonix 40mg PO daily Lovenox 40mg SC daily Plan discussed with Dr Natalie Hester DO PGY-2
--- NOTE | 2019-02-06 08:51 | CT ---
Date of service: 02/06/2019 PROCEDURE: CT HEAD WITHOUT CONTRAST. HISTORY: dizziness COMPARISON: None available. TECHNIQUE: Axial computed tomography images were obtained through the head/brain without intravenous contrast. Radiation dose: Total exam DLP = 1074 mGy-cm. This CT exam was performed using one or more of the following dose reduction techniques: Automated exposure control, adjustment of the mA and/or kV according to patient size, and/or use of iterative reconstruction technique. FINDINGS: HEMORRHAGE: No intracranial hemorrhage. BRAIN: No mass effect or edema. Scattered focal lucencies in the subcortical and periventricular white matter for example in the right frontal subcortical white matter on series 4, image 23 suggestive for chronic microvascular ischemic change. Punctate hypodensity in the left basal ganglia may represent a prominent perivascular space versus punctate lacunar infarct. VENTRICLES: Unremarkable. No hydrocephalus. CALVARIUM: Unremarkable. PARANASAL SINUSES: Unremarkable as visualized. No significant inflammatory changes. MASTOID AIR CELLS: Unremarkable as visualized. No inflammatory changes. OTHER FINDINGS: None. IMPRESSION: No acute intracranial abnormality. Mild chronic microvascular ischemic changes. Punctate hypodensity in the left basal ganglia suggestive for a prominent perivascular space versus punctate lacunar infarct. Clinical correlation. If symptoms persists, consider correlation with MRI.
[2019-02-06 09:20] LABS: BASO % 0.5 % (0.0-2.0); EOS # 0.1 K/uL (0.0-0.7); EOS % 1.2 % (0.0-4.0); HEMOGLOBIN 14.4 g/dL (11.0-16.0); LYMPH # 1.3 K/uL (1.0-4.3); LYMPH % 25.7 % (20.0-40.0); MEAN CELL VOLUME 102.5 fL (81.0-99.0); MEAN CORPUSCULAR HEMOGLOBIN 34.1 pg (27.0-31.0); MEAN CORPUSCULAR HGB CONC 33.3 g/dL (33.0-37.0); MONO # 0.7 K/uL (0.0-0.8); MONO % 14.3 % (0.0-10.0); NEUT % 58.3 % (50.0-75.0); RBC 4.21 Mil/uL (3.80-5.20); RED CELL DISTRIBUTION WIDTH 12.3 % (11.5-14.5); WHITE BLOOD COUNT 5.1 K/uL (4.8-10.8)
[2019-02-06] MEDS: Pantoprazole 40 mg EC Tab PO SCH (09:24)
[2019-02-06] MEDS: Enoxaparin 40 mg Syringe SC SCH (09:25)
[2019-02-06 09:34] LABS: ALB/GLOB RATIO 1.8 (1.0-2.1); ALT/SGPT 39 U/L (9-52); AST/SGOT 41 U/L (14-36); BLOOD UREA NITROGEN 8 mg/dL (7-17); CALCIUM 9.4 mg/dl (8.6-10.4); GFR NON-AFRICAN AMERICAN > 60; HDL CHOLESTEROL 76 mg/dL (30-70)
[2019-02-06] MEDS: Metoprolol Succinate 12.5 mg XL Tab PO SCH (09:43)
[2019-02-06 09:45] LABS: LDL CHOLESTEROL 81 mg/dL (0-129)
--- NOTE | 2019-02-06 10:07 | CP.PCM.PN ---
Subjective - Date & Time of Evaluation Date of Evaluation: 02/06/19 Time of Evaluation: 10:03 - Subjective Subjective: Merlin Denton, PGY-1, Cardiology Progress Note for Dr. Harris Patient seen and evaluated at bedside this morning. Patient reported repr oducible chest tightness that started since yesterday morning, numbness in left hand. Patient denies shortness of breath. Patient had felt weak, dizzines, nauseous over the weekend with multiple episodes of vomiting over the weekend. Last episode of vomiting, was yesterday morning prior to chest tightness. Patient had a stress test 2 years ago which was noted to be normal at the time Patient has never had a cardiac catheterization. Patient does not have a bed machine operator or PCP at [facility] time. Patient smokes 4 cigarettes for the past 5 years, drinks occassional alcohol, and partakes in no recreational drug use. Patient has no family history of cardiac disease. Objective - Vital Signs/Intake and Output Vital Signs (last 24 hours): Temp Pulse Resp BP Pulse Ox 97.1 F L 93 H 20 107/73 98 02/06/19 08:00 02/06/19 09:23 02/06/19 08:00 02/06/19 09:23 02/06/19 08:00 Intake and Output: 02/06/19 02/06/19 06:59 18:59 Intake Total 461 Balance 461 - Medications Medications: Current Medications Aspirin (Ecotrin) 81 mg PO DAILY [facility] Last Admin: 02/06/19 09:24 Dose: 81 mg Clopidogrel Bisulfate (Plavix) 75 mg PO DAILY [facility] Last Admin: 02/06/19 09:24 Dose: 75 mg Enoxaparin Sodium (Lovenox) 40 mg SC DAILY [facility] Last Admin: 02/06/19 09:25 Dose: 40 mg Insulin Aspart (Novolog) 0 unit SC [facility]; Protocol Last Admin: 02/06/19 08:30 Dose: 2 units Insulin Glargine (Lantus) 30 unit SC HS [facility] Last Admin: 02/05/19 21:44 Dose: 30 units Metoprolol Succinate (Toprol Xl) 12.5 mg PO DAILY [facility] Last Admin: 02/06/19 09:43 Dose: 12.5 mg Morphine Sulfate (Morphine) 2 mg IVP Q6H PRN PRN Reason: Pain, severe (8-10) Last Admin: 02/05/19 23:54 Dose: 2 mg Pantoprazole Sodium (Protonix Ec Tab) 40 mg PO DAILY [facility] Last Admin: 02/06/19 09:24 Dose: 40 mg Rosuvastatin Calcium (Crestor) 20 mg PO HS [facility] - Labs Labs: 02/06/19 09:07 02/06/19 09:07 - Constitutional Appears: Well, Non-toxic, No Acute Distress - Head Exam Head Exam: ATRAUMATIC, NORMAL INSPECTION, NORMOCEPHALIC - Eye Exam Eye Exam: EOMI, PERRL - Respiratory Exam Respiratory Exam: Clear to Ausculation Bilateral, NORMAL BREATHING PATTERN - Cardiovascular Exam Cardiovascular Exam: REGULAR RHYTHM, RRR - GI/Abdominal Exam GI & Abdominal Exam: Soft, Normal Bowel Sounds. absent: Tenderness - Extremities Exam Extremities Exam: Full ROM - Neurological Exam Neurological Exam: Alert, Awake, CN II-XII Intact, Oriented x3 - Psychiatric Exam Psychiatric exam: Normal Affect, Normal Mood Assessment and Plan - Assessment and Plan (Free Text) Assessment: Chest pain with ACS rule out Diabetes Mellitus type II Plan: Chest pain with ACS rule out Diabetes Mellitus type II EKG: sinus tachycardia with HR: 103 Follow up lipid panel Follow up echocardiogram Troponinx3 was negative Hemoglobin A1c: 11.2 Lipid panel unremarkable Pain is unlikely cardiac in origin Medications: Aspirin 81 mg daily Will discontinue Plavix 75 mg daily Will add ACEI or ARB Rosuvastatin 20 mg HS Toprol 12.5 mg daily Will add NSAID for pain
--- NOTE | 2019-02-06 12:38 | CARD ---
APPROVED REPORT Date of service: 02/05/2019 EKG Measurement Heart [id number] CT [id number] <Conclusion> Sinus tachycardia Septal infarct, age undetermined Abnormal ECG
[2019-02-06] MEDS ORDERED: Potassium Chloride 20 mEq ER Tab PO ONE (16:00)
--- NOTE | 2019-02-06 16:56 | CARD ---
APPROVED REPORT Date of service: 02/06/2019 EXAM: Two-dimensional and M-mode echocardiogram with Doppler and color Doppler. Other Information Quality : GoodRhythm : INDICATION Chest Pain 2D DIMENSIONS IVSd0.8 (0.7-1.1cm)LVDd3.3 (3.9-5.9cm) PWd0.9 (0.7-1.1cm)LA [id number] (18-58mL) LVDs2.2 (2.5-4.0cm)FS (%) 32.1 % LVEF (%)61.6 (>50%)LVEF (Alcantara's)62.83 % M-Mode DIMENSIONS Left Atrium (MM)3.72 (2.5-4.0cm)IVSd0.65 (0.7-1.1cm) Aortic Root2.68 (2.2-3.7cm)LVDd4.24 (4.0-5.6cm) Aortic Cusp Exc.2.00 (1.5-2.0cm)PWd0.70 (0.7-1.1cm) FS (%) 38 %LVDs2.61 (2.0-3.8cm) LVEF (%)69 (>50%) Mitral Valve MV E Xhelmjbo28.2cm/sMV A Owaewbpj76.6cm/sE/A ratio1.1 TDI Lateral E' Peak V11.57cm/sMedial E' Peak V8.90cm/sE/Lateral E'6.7 E/Medial E'8.7 Tricuspid Valve TR Peak [id number]/sTR Peak [id number] LEFT VENTRICLE The left ventricle is normal size. There is normal left ventricular wall thickness. The left ventricular function is normal. The left ventricular ejection fraction is within the normal range. There is normal LV segmental wall motion. Transmitral Doppler flow pattern is normal for age. RIGHT VENTRICLE The right ventricle is normal size. The right ventricular systolic function is normal. ATRIA The left atrium size is normal. The right atrium size is normal. AORTIC VALVE The aortic valve is normal in structure. No aortic regurgitation is present. There is no aortic valvular stenosis. MITRAL VALVE The mitral valve is normal in structure. There is no mitral valve regurgitation noted. TRICUSPID VALVE The tricuspid valve is normal in structure. There is trace tricuspid regurgitation. PULMONIC VALVE The pulmonary valve is normal in structure. GREAT VESSELS The aortic root is normal in size. The IVC is normal in size and collapses >50% with inspiration. PERICARDIAL EFFUSION There is no pericardial effusion. <Conclusion> Normal bi-ventricular function. No valvular abnormality. No pericardial effusion.
--- NOTE | 2019-02-06 20:16 | CP.PCM.PN ---
Subjective - Date & Time of Evaluation Date of Evaluation: 02/06/19 Time of Evaluation: 09:00 - Subjective Subjective: clinically same Objective - Vital Signs/Intake and Output Vital Signs (last 24 hours): Temp Pulse Resp BP Pulse Ox 97.7 F 91 H 18 120/80 100 02/06/19 15:00 02/06/19 20:02 02/06/19 15:00 02/06/19 15:00 02/06/19 15:00 - Medications Medications: Current Medications Aspirin (Ecotrin) 81 mg PO DAILY [facility] Last Admin: 02/06/19 09:24 Dose: 81 mg Enoxaparin Sodium (Lovenox) 40 mg SC DAILY [facility] Last Admin: 02/06/19 09:25 Dose: 40 mg Gabapentin (Neurontin) 300 mg PO HS [facility] Ibuprofen (Motrin Tab) 600 mg PO Q6H PRN PRN Reason: Pain, moderate (4-7) Insulin Aspart (Novolog) 0 unit SC [facility]; Protocol Last Admin: 02/06/19 17:20 Dose: 3 units Insulin Glargine (Lantus) 30 unit SC [facility] Last Admin: 02/05/19 21:44 Dose: 30 units Lisinopril (Zestril) 5 mg PO DAILY [facility] Metoprolol Succinate (Toprol Xl) 12.5 mg PO DAILY [facility] Last Admin: 02/06/19 09:43 Dose: 12.5 mg Morphine Sulfate (Morphine) 2 mg IVP Q6H PRN PRN Reason: Pain, severe (8-10) Last Admin: 02/06/19 13:36 Dose: 2 mg Pantoprazole Sodium (Protonix Ec Tab) 40 mg PO DAILY [facility] Last Admin: 02/06/19 09:24 Dose: 40 mg Rosuvastatin Calcium (Crestor) 20 mg PO [facility] - Labs Labs: 02/06/19 09:07 02/06/19 09:07 - Constitutional Appears: Well - Head Exam Head Exam: ATRAUMATIC, NORMAL INSPECTION, NORMOCEPHALIC - Eye Exam Eye Exam: EOMI, Normal appearance, PERRL Pupil Exam: NORMAL ACCOMODATION, PERRL - ENT Exam ENT Exam: Mucous Membranes Moist, Normal Exam - Neck Exam Neck Exam: Full ROM, Normal Inspection. absent: Lymphadenopathy - Respiratory Exam Respiratory Exam: Decreased Breath Sounds - Cardiovascular Exam Cardiovascular Exam: REGULAR RHYTHM, +S1, +S2 - GI/Abdominal Exam GI & Abdominal Exam: Soft, Diminished Bowel Sounds - Rectal Exam Rectal Exam: Deferred
[2019-02-06] MEDS: (Lantus) Insulin Glargine, Recombinant SC SCH (21:47)
[2019-02-07 07:30] LABS: BASO % 0.5 % (0.0-2.0); EOS # 0.1 K/uL (0.0-0.7); EOS % 1.6 % (0.0-4.0); HEMOGLOBIN 14.3 g/dL (11.0-16.0); LYMPH # 1.2 K/uL (1.0-4.3); MONO # 0.5 K/uL (0.0-0.8); NEUT # 2.5 K/uL (1.8-7.0)
[2019-02-07 07:42] LABS: LYMPH % 27.7 % (20.0-40.0); MEAN CELL VOLUME 103.8 fL (81.0-99.0); MEAN CORPUSCULAR HEMOGLOBIN 34.4 pg (27.0-31.0); MEAN CORPUSCULAR HGB CONC 33.1 g/dL (33.0-37.0); MEAN PLATELET VOLUME 11.5 fL (7.2-11.7); MONO % 11.4 % (0.0-10.0); NEUT % 58.8 % (50.0-75.0); NRBC % 0.2 % (0.0-2.0); RBC 4.15 Mil/uL (3.80-5.20); RED CELL DISTRIBUTION WIDTH 12.9 % (11.5-14.5); WHITE BLOOD COUNT 4.2 K/uL (4.8-10.8)
[2019-02-07 07:51] LABS: ALB/GLOB RATIO 1.7 (1.0-2.1); ALBUMIN 3.6 g/dL (3.5-5.0); ALT/SGPT 71 U/L (9-52); AST/SGOT 99 U/L (14-36); BLOOD UREA NITROGEN 7 mg/dL (7-17); GFR NON-AFRICAN AMERICAN > 60
[2019-02-07] MEDS: Pantoprazole 40 mg EC Tab PO SCH (09:55)
[2019-02-07] MEDS: Potassium Chloride 20 mEq ER Tab PO SCH (09:55)
[2019-02-07] MEDS: Enoxaparin 40 mg Syringe SC SCH (09:56)
[2019-02-07] MEDS: (Novolog) Insulin Aspart, Recombinant 100 u/ml 10 ml vial SC SCH ×4 (09:56→21:15)
[2019-02-07] MEDS: Metoprolol Succinate 12.5 mg XL Tab PO SCH (11:46)
--- NOTE | 2019-02-07 12:21 | CP.PCM.PN ---
Subjective - Date & Time of Evaluation Date of Evaluation: 02/07/19 Time of Evaluation: 12:20 - Subjective Subjective: Medicine Progress Note - Dr Natalie Casey's service Patient seen and examined at bedside. Per nursing no acute events overnight. She still reports having constant chest tightness. Blood sugars are elevated. Offers no other complaints at this time. Objective - Vital Signs/Intake and Output Vital Signs (last 24 hours): Temp Pulse Resp BP Pulse Ox 97.4 F L 96 H 20 119/84 100 02/07/19 07:37 02/07/19 08:23 02/07/19 07:37 02/07/19 07:37 02/07/19 07:37 Intake and Output: 02/07/19 02/07/19 06:59 18:59 Intake Total 1000 Balance 1000 - Medications Medications: Current Medications Aspirin (Ecotrin) 81 mg PO DAILY [facility] Last Admin: 02/07/19 09:55 Dose: 81 mg Enoxaparin Sodium (Lovenox) 40 mg SC DAILY [facility] Last Admin: 02/07/19 09:56 Dose: 40 mg Gabapentin (Neurontin) 300 mg PO HS [facility] Last Admin: 02/06/19 21:47 Dose: 300 mg Ibuprofen (Motrin Tab) 600 mg PO Q6H PRN PRN Reason: Pain, moderate (4-7) Insulin Aspart (Novolog) 0 unit SC [facility]; Protocol Last Admin: 02/07/19 11:46 Dose: 10 unit Insulin Glargine (Lantus) 30 unit SC HS [facility] Last Admin: 02/06/19 21:47 Dose: 30 units Lisinopril (Zestril) 5 mg PO DAILY [facility] Last Admin: 02/07/19 09:55 Dose: 5 mg Metoprolol Succinate (Toprol Xl) 12.5 mg PO DAILY [facility] Last Admin: 02/07/19 11:46 Dose: 12.5 mg Morphine Sulfate (Morphine) 2 mg IVP Q6H PRN PRN Reason: Pain, severe (8-10) Last Admin: 02/07/19 00:09 Dose: 2 mg Pantoprazole Sodium (Protonix Ec Tab) 40 mg PO DAILY [facility] Last Admin: 02/07/19 09:55 Dose: 40 mg Potassium Chloride (K-Dur 20 Meq Er Tab) 40 meq PO BRK [facility] Last Admin: 02/07/19 09:55 Dose: 40 meq Rosuvastatin Calcium (Crestor) 20 mg PO HS [facility] Last Admin: 02/06/19 21:47 Dose: 20 mg - Labs Labs: 02/07/19 07:21 02/07/19 07:21 - Constitutional Appears: Non-toxic, No Acute Distress - Head Exam Head Exam: ATRAUMATIC, NORMAL INSPECTION, NORMOCEPHALIC - Eye Exam Eye Exam: EOMI, Normal appearance - ENT Exam ENT Exam: Mucous Membranes Moist - Respiratory Exam Respiratory Exam: Clear to Ausculation Bilateral, NORMAL BREATHING PATTERN - Cardiovascular Exam Cardiovascular Exam: REGULAR RHYTHM, +S1, +S2 - GI/Abdominal Exam GI & Abdominal Exam: Soft. absent: Guarding, Rigid, Tenderness - Extremities Exam Extremities Exam: absent: Calf Tenderness - Neurological Exam Neurological Exam: Alert, Awake, Oriented x3 - Psychiatric Exam Psychiatric exam: Normal Affect, Normal Mood - Skin Skin Exam: Normal Color, Warm Assessment and Plan - Assessment and Plan (Free Text) Assessment: Chest Tightness, ACS rule out -Monitor on telemetry -Troponins negative x 3 -Continue ASA 81mg and discontinued Plavix 75mg PO daily -On crestor 20mg PO HS, Toprol XL 12.5mg PO daily, lisinopril 5mg PO daily -Echocardiogram showed normal biventricular function -Cardiology on consult, Dr Harris, help appreciated Diabetes Mellitus -Hemoglobin A1C 11.4 -Increased Lantus 35 units HS, added Novolog 10 units [facility] -Insulin sliding scale and accuchecks ACHS -Hypoglycemia protocol -Endocrine consulted, Dr Dick, help appreciated Peripheral neuropathy -Started on Gabapentin 300mg PO HS Macrocytosis -Will order vitamin B12 and folate Elevated LFTs -We will monitor at this time, if continues to worsen will consider decreasing statin dose Tobacco use -Patient counselled on tobacco cessation Dizziness -CT head: No acute intracranial abnormality. Mild chronic microvascular ischemic changes. Punctate hypodensity in the left basal ganglia suggestive for a prominent perivascular space versus punctate lacunar infarct. Clinical correlation. (see full report) Hypokalemia -Repleted, Continue to monitor GI/DVT ppx : Protonix 40mg PO daily Lovenox 40mg SC daily Plan discussed with Dr Natalie Hester DO PGY-2
[2019-02-07] MEDS ORDERED: (Novolog) Insulin Aspart, Recombinant 100 u/ml 10 ml vial SC SCH ×3 (12:22→17:00)
[2019-02-07] MEDS ORDERED: Glucagon Recombinant 1 mg Inj IM PRN (13:52)
[2019-02-07] MEDS ORDERED: Dextrose 50% SYRINGE Inj (50 ml) IV PRN (13:52)
[2019-02-07] MEDS: Magnesium Sulfate 1 gm in D5W 1 GM/100 ML BAG IVPB SCH ×2 (14:59→15:00)
--- NOTE | 2019-02-07 15:02 | CP.PCM.PN ---
Subjective - Date & Time of Evaluation Date of Evaluation: 02/07/19 Time of Evaluation: 09:00 - Subjective Subjective: clinically same Objective - Vital Signs/Intake and Output Vital Signs (last 24 hours): Temp Pulse Resp BP Pulse Ox 97.4 F L 96 H 20 119/84 100 02/07/19 07:37 02/07/19 08:23 02/07/19 07:37 02/07/19 07:37 02/07/19 07:37 Intake and Output: 02/07/19 02/07/19 06:59 18:59 Intake Total 1000 Balance 1000 - Medications Medications: Current Medications Aspirin (Ecotrin) 81 mg PO DAILY [facility] Last Admin: 02/07/19 09:55 Dose: 81 mg Dextrose (Dextrose 50% Inj) 0 ml IV STAT PRN; Protocol PRN Reason: Hypoglycemia Protocol Dextrose (Glutose 15) 0 gm PO ONCE PRN; Protocol PRN Reason: Hypoglycemia Protocol Enoxaparin Sodium (Lovenox) 40 mg SC DAILY [facility] Last Admin: 02/07/19 09:56 Dose: 40 mg Gabapentin (Neurontin) 300 mg PO HS [facility] Last Admin: 02/06/19 21:47 Dose: 300 mg Glucagon (Glucagen Diagnostic Kit) 0 mg IM STAT PRN; Protocol PRN Reason: Hypoglycemia Protocol Dextrose (Dextrose 5% In Water 1000 Ml) 1,000 mls @ 0 mls/hr IV .Q0M PRN; Protocol PRN Reason: Hypoglycemia Protocol Ibuprofen (Motrin Tab) 600 mg PO Q6H PRN PRN Reason: Pain, moderate (4-7) Insulin Aspart (Novolog) 10 unit SC [facility] Insulin Aspart (Novolog) 0 unit SC ACHS [facility] Insulin Glargine (Lantus) 40 unit SC HS [facility] Lisinopril (Zestril) 5 mg PO DAILY [facility] Last Admin: 02/07/19 09:55 Dose: 5 mg Metoprolol Succinate (Toprol Xl) 12.5 mg PO DAILY [facility] Last Admin: 02/07/19 11:46 Dose: 12.5 mg Morphine Sulfate (Morphine) 1 mg IVP Q6H PRN PRN Reason: Pain, severe (8-10) Last Admin: 02/07/19 14:29 Dose: 1 mg Pantoprazole Sodium (Protonix Ec Tab) 40 mg PO DAILY [facility] Last Admin: 02/07/19 09:55 Dose: 40 mg Potassium Chloride (K-Dur 20 Meq Er Tab) 40 meq PO BRK [facility] Last Admin: 02/07/19 09:55 Dose: 40 meq Rosuvastatin Calcium (Crestor) 20 mg PO HS [facility] Last Admin: 02/06/19 21:47 Dose: 20 mg - Labs Labs: 02/07/19 07:21 02/07/19 07:21
--- NOTE | 2019-02-07 16:29 | CP.PCM.PN ---
Subjective - Date & Time of Evaluation Date of Evaluation: 02/07/19 Time of Evaluation: 16:29 - Subjective Subjective: Merlin Denton, PGY-1, Cardiology Progress Note for Dr. Harris Patient was seen and evaluated at bedside. Patient continues to complain of reproducible chest pain but denies any other symptoms including shortness of breath, nausea, vomiting, diaphoresis, left arm pain, or jaw pain. Patient also denies dizziness. Objective - Vital Signs/Intake and Output Vital Signs (last 24 hours): Temp Pulse Resp BP Pulse Ox 97.8 F 85 20 119/84 99 02/07/19 15:00 02/07/19 15:57 02/07/19 15:00 02/07/19 07:37 02/07/19 15:00 Intake and Output: 02/07/19 02/07/19 06:59 18:59 Intake Total 1000 700 Balance 1000 700 - Medications Medications: Current Medications Aspirin (Ecotrin) 81 mg PO DAILY [facility] Last Admin: 02/07/19 09:55 Dose: 81 mg Dextrose (Dextrose 50% Inj) 0 ml IV STAT PRN; Protocol PRN Reason: Hypoglycemia Protocol Dextrose (Glutose 15) 0 gm PO ONCE PRN; Protocol PRN Reason: Hypoglycemia Protocol Enoxaparin Sodium (Lovenox) 40 mg SC DAILY [facility] Last Admin: 02/07/19 09:56 Dose: 40 mg Gabapentin (Neurontin) 300 mg PO HS [facility] Last Admin: 02/06/19 21:47 Dose: 300 mg Glucagon (Glucagen Diagnostic Kit) 0 mg IM STAT PRN; Protocol PRN Reason: Hypoglycemia Protocol Dextrose (Dextrose 5% In Water 1000 Ml) 1,000 mls @ 0 mls/hr IV .Q0M PRN; Protocol PRN Reason: Hypoglycemia Protocol Ibuprofen (Motrin Tab) 600 mg PO Q6H PRN PRN Reason: Pain, moderate (4-7) Insulin Aspart (Novolog) 10 unit SC [facility] Insulin Aspart (Novolog) 0 unit SC ACHS [facility] Insulin Glargine (Lantus) 40 unit SC HS [facility] Lisinopril (Zestril) 5 mg PO DAILY [facility] Last Admin: 02/07/19 09:55 Dose: 5 mg Metoprolol Succinate (Toprol Xl) 12.5 mg PO DAILY [facility] Last Admin: 03/12/19 11:46 Dose: 12.5 mg Morphine Sulfate (Morphine) 1 mg IVP Q6H PRN PRN Reason: Pain, severe (8-10) Last Admin: 02/07/19 14:29 Dose: 1 mg Pantoprazole Sodium (Protonix Ec Tab) 40 mg PO DAILY [facility] Last Admin: 02/07/19 09:55 Dose: 40 mg Potassium Chloride (K-Dur 20 Meq Er Tab) 40 meq PO BRK [facility] Last Admin: 02/07/19 09:55 Dose: 40 meq Rosuvastatin Calcium (Crestor) 20 mg PO HS [facility] Last Admin: 02/06/19 21:47 Dose: 20 mg - Labs Labs: 02/07/19 07:21 02/07/19 07:21 - Constitutional Appears: Well, Non-toxic, No Acute Distress - Head Exam Head Exam: ATRAUMATIC, NORMAL INSPECTION, NORMOCEPHALIC - Eye Exam Eye Exam: EOMI, PERRL - ENT Exam ENT Exam: Mucous Membranes Moist - Neck Exam Neck Exam: Full ROM - Respiratory Exam Respiratory Exam: Clear to Ausculation Bilateral, NORMAL BREATHING PATTERN - Cardiovascular Exam Cardiovascular Exam: REGULAR RHYTHM, RRR - GI/Abdominal Exam GI & Abdominal Exam: Soft, Normal Bowel Sounds. absent: Tenderness - Extremities Exam Extremities Exam: Full ROM - Neurological Exam Neurological Exam: Alert, Awake, CN II-XII Intact, Oriented x3 - Psychiatric Exam Psychiatric exam: Normal Affect, Normal Mood - Skin Skin Exam: Dry, Intact Assessment and Plan - Assessment and Plan (Free Text) Assessment: Chest pain with ACS rule out Diabetes Mellitus type II Plan: Chest pain with ACS rule out Diabetes Mellitus type II EKG: sinus tachycardia with HR: 103 Echocardiogram: LVEF is 68% with normal biventricular function Troponinx3 was negative Hemoglobin A1c: 11.2 Lipid panel unremarkable Pain is unlikely cardiac in origin Medications: Aspirin 81 mg daily Lisinopril 5 mg daily Rosuvastatin 20 mg HS Toprol 12.5 mg daily Ibuprofen PRN for chest pain
[2019-02-07] MEDS: (Lantus) Insulin Glargine, Recombinant SC SCH (21:26)
[2019-02-07] MEDS ORDERED: (Lantus) Insulin Glargine, Recombinant SC SCH (22:00)
--- NOTE | 2019-02-08 06:50 | CON ---
DATE: 02/07/2019 ENDOCRINOLOGY CONSULT LOCATION: Room 570. HISTORY OF PRESENT ILLNESS: This is a 43-year-old female with known history of type 2 insulin-requiring diabetes, presenting here with precordial chest pain and palpitations with marked hyperglycemic accelerations and is now being referred for diabetic evaluation and management. She apparently ran out of her insulin supplies because of loss of her medical insurance over a month ago as noted. PAST MEDICAL HISTORY: As mentioned above, history of type 2 insulin-requiring diabetes, previously on Lantus taken as 30 units at bedtime with Humalog taken as 10 units t.i.d. before meals, history of hypertension, and dyslipidemia. FAMILY HISTORY: Positive for hypertension and heart disease. SOCIAL HISTORY: The patient has a supportive family. No known substance use. REVIEW OF SYSTEMS: Admits to generalized body weakness with progressive bouts of dizziness and lightheadedness, worse on the day of admission. Also admits to bifrontal headaches and visual blurring, again worse in the last month or so prior to admission. Admits to sudden onset of precordial chest pain with progressive shortness of breath, especially on exertion and supervening palpitations noted also. Her oral intake has been variable and suboptimal with episodic vomiting episodes and dyspepsia and vague abdominal pain. Also admits to marked polyuria, nocturia, and polydipsia as noted. PHYSICAL EXAMINATION: GENERAL: This is an average-built female, in no apparent distress. VITAL SIGNS: Blood pressure of 160/100, pulse of 80 beats per minute and regular, temperature 98, respirations 20. Height is 5 feet 3 inches. Weight is 150 pounds. HEENT: Head normocephalic. Eyes anicteric with pink conjunctivae. Funduscopy not possible at this time. Ears, nose, and throat, otherwise, normal. NECK: Supple. Thyroid gland is normal sized. No carotid bruits or any cervical adenopathy. CARDIOPULMONARY: Some adynamic precordium. S1 and S2, rapid and regular. LUNGS: Clear to auscultation. ABDOMEN: Flat, soft with positive bowel sounds. EXTREMITIES: No peripheral edema. Pulses are +2 bilaterally. LABORATORY DATA: Her chemistry showed a BUN of 7, sodium 135, potassium 4.2, chloride 96, CO2 of 31, glucose 242, and creatinine 0.6. Her glucose levels have ranged from 247 to over 500 mg/dL. ASSESSMENT: This is a 43-year-old female with uncontrolled and decompensated type 2 insulin-requiring diabetes with marked hyperglycemic accelerations related to drug omission, presented here with precordial chest pain and currently undergoing cardiac workup and management. PLAN OF MANAGEMENT: We will initiate a more physiologic insulin drug combination with a basal and bolus dose regimen as ordered. We will increase her Humalog to 12 units t.i.d. before meals to start today as ordered. We will also modify the coverage scale to obviate hypoglycemia and detailed orders have been given for a low-dose Humalog coverage as ordered. We will also modify her basal insulin with Lantus to be given as 40 units subcutaneous at bedtime daily to start tonight. We will obtain serial chemistries and supplement accordingly as needed. We will reinforce diabetic education and diabetic instructions, also at the time of this admission. We will obtain serial chemistries and supplement accordingly as needed. We will follow and advised accordingly. Abby Dick MD
--- NOTE | 2019-02-08 07:16 | CP.PCM.CON ---
History of Present Illness - History of Present Illness History of Present Illness: Pgy3 Internal Medicine Resident Endocrinology Consult note for Dr. Dick Reason for consult: Uncontrolled DM 43yo female PMHx IDDM diagonosed 8-9 years ago presented with chest tightness that began 3-4 days ago. Patient reports similar symptoms of chest tightness and palpitations especially when ambulating. She had a stress test in 2016 which was unremarkable and has never had a cardiac cath. Patient was admitted to tele for further cardiac work up. She also reported recently having lost her job and health insurance and having not taken her IDDM medications in over 1 month. On further questioning she admitted to weakness, dizziness, and nausea with multiple episodes of vomiting prior to presenting to the ER. This AM patient seen and examined at bedside. Overnight patient was noted to have low BP read ings and a headache. she was resting comfortably this AM and continued to complain of chest tightness. She also admitted to polydipsia and numbness/tingling in her b/l lower extremities. On complete ROS patient denied fever, chills, sob, cough, abd pain, bowel complaints. She admitted to intermittent headaches, dizziness, nausea, and a burning sensation in her b/l LE. PMD: None Card Placer: None PMHx: IDDM PSurgHx: b/l tubal ligation; back lipoma excision Meds: Lantus 30u qhs and Novolog 10u between meals Allergies: NKDA SocHx: smokes 4 cig/day (expressed interest in quitting), drinks alcohol occasionally, denies drug use. Lives at home with mother and father. Recently unemployed FamHx: Grandfather - CHF Review of Systems - Review of Systems All systems: reviewed and no additional remarkable complaints except Review of Systems: as per HPI Past Patient History - Infectious Disease Hx of Infectious Diseases: None - Tetanus Immunizations Tetanus Immunization: Unknown - Past Medical History & Family History Past Medical History?: Yes - Past Social History Smoking Status: Light Smoker < 10 Cigarettes Daily - CARDIAC Hx Cardiac Disorders: No - PULMONARY Hx Respiratory Disorders: No - NEUROLOGICAL Hx Neurological Disorder: No - HEENT Hx HEENT Problems: No - RENAL Hx Chronic Kidney Disease: No - ENDOCRINE/METABOLIC Hx Endocrine Disorders: Yes Hx Diabetes Mellitus Type 1: Yes - HEMATOLOGICAL/ONCOLOGICAL Hx Blood Disorders: No - INTEGUMENTARY Hx Dermatological Problems: No - MUSCULOSKELETAL/RHEUMATOLOGICAL Hx Musculoskeletal Disorders: No Hx Falls: No - GASTROINTESTINAL Hx Gastrointestinal Disorders: No - GENITOURINARY/GYNECOLOGICAL Hx Genitourinary Disorders: No - PSYCHIATRIC Hx Psychophysiologic Disorder: No Hx Substance Use: No - SURGICAL HISTORY Hx Surgeries: Yes Hx Tubal Ligation: Yes Other/Comment: I&D OF LEFT AXILLA 01/21/15 - ANESTHESIA Hx Anesthesia: Yes Hx Anesthesia Reactions: No Hx Malignant Hyperthermia: No Has any member of the family had a problem w/ anesthesia?: No Meds Allergies/Adverse Reactions: Allergies Allergy/AdvReac Type Severity Reaction Status Date / Time No Known Allergies Allergy Verified 02/05/19 11:02 - Medications Medications: Current Medications Aspirin (Ecotrin) 81 mg PO DAILY [facility] Last Admin: 02/07/19 09:55 Dose: 81 mg Dextrose (Dextrose 50% Inj) 0 ml IV STAT PRN; Protocol PRN Reason: Hypoglycemia Protocol Dextrose (Glutose 15) 0 gm PO ONCE PRN; Protocol PRN Reason: Hypoglycemia Protocol Enoxaparin Sodium (Lovenox) 40 mg SC DAILY [facility] Last Admin: 02/07/19 09:56 Dose: 40 mg Gabapentin (Neurontin) 300 mg PO HS [facility] Last Admin: 02/07/19 21:26 Dose: 300 mg Glucagon (Glucagen Diagnostic Kit) 0 mg IM STAT PRN; Protocol PRN Reason: Hypoglycemia Protocol Dextrose (Dextrose 5% In Water 1000 Ml) 1,000 mls @ 0 mls/hr IV .Q0M PRN; Protocol PRN Reason: Hypoglycemia Protocol Ibuprofen (Motrin Tab) 600 mg PO Q6H PRN PRN Reason: Pain, moderate (4-7) Last Admin: 02/08/19 03:03 Dose: 600 mg Insulin Aspart (Novolog) 0 unit SC ACHS [facility] Last Admin: 02/07/19 21:15 Dose: Not Given Insulin Aspart (Novolog) 12 unit SC AC [facility] Insulin Glargine (Lantus) 40 unit SC HS [facility] Last Admin: 02/07/19 21:26 Dose: 40 unit Lisinopril (Zestril) 5 mg PO DAILY [facility] Last Admin: 02/07/19 09:55 Dose: 5 mg Metoprolol Succinate (Toprol Xl) 12.5 mg PO DAILY [facility] Last Admin: 02/07/19 11:46 Dose: 12.5 mg Morphine Sulfate (Morphine) 1 mg IVP Q6H PRN PRN Reason: Pain, severe (8-10) Last Admin: 02/07/19 14:29 Dose: 1 mg Pantoprazole Sodium (Protonix Ec Tab) 40 mg PO DAILY [facility] Last Admin: 02/07/19 09:55 Dose: 40 mg Potassium Chloride (K-Dur 20 Meq Er Tab) 40 meq PO BRK [facility] Last Admin: 02/07/19 09:55 Dose: 40 meq Rosuvastatin Calcium (Crestor) 20 mg PO HS [facility] Last Admin: 02/07/19 21:26 Dose: 20 mg Physical Exam - Constitutional Appears: Non-toxic, No Acute Distress - Head Exam Head Exam: ATRAUMATIC, NORMAL INSPECTION, NORMOCEPHALIC - Eye Exam Eye Exam: EOMI, Normal appearance, PERRL. absent: Conjunctival injection, Scleral icterus - ENT Exam ENT Exam: Mucous Membranes Moist - Neck Exam Neck exam: Positive for: Full Rom, Normal Inspection - Respiratory Exam Respiratory Exam: Clear to Auscultation Bilateral, NORMAL BREATHING PATTERN. absent: Accessory Muscle Use, Rales, Rhonchi, Wheezes - Cardiovascular Exam Cardiovascular Exam: REGULAR RHYTHM, +S1, +S2. absent: Systolic Murmur - GI/Abdominal Exam GI & Abdominal Exam: Normal Bowel Sounds, Soft. absent: Firm, Guarding, Rigid, Tenderness - Extremities Exam Extremities exam: Positive for: normal capillary refill, normal inspection, pedal pulses present. Negative for: pedal edema - Back Exam Back exam: NORMAL INSPECTION. absent: rash noted - Neurological Exam Neurological exam: Alert, CN II-XII Intact, Oriented x3 - Psychiatric Exam Psychiatric exam: Normal Affect, Normal Mood - Skin Skin Exam: Dry, Intact, Normal Color, Warm Results - Vital Signs Recent Vital Signs: Last Vital Signs Temp 97.6 F 02/08/19 00:37 Pulse 83 02/08/19 04:45 Resp 20 02/08/19 00:37 BP 90/62 L 02/08/19 00:50 Pulse Ox 97 02/08/19 00:37 - Labs Result Diagrams: 02/07/19 07:21 02/07/19 07:21 Labs: Laboratory Results - last 24 hr 02/07/19 02/07/19 02/07/19 07:21 07:21 11:31 WBC 4.2 L RBC 4.15 Hgb 14.3 Hct 43.1 MCV 103.8 H MCH 34.4 H MCHC 33.1 RDW 12.9 Plt Count 140 MPV 11.5 Neut % (Auto) 58.8 Lymph % (Auto) 27.7 Williamson % (Auto) 11.4 H Eos % (Auto) 1.6 Baso % (Auto) 0.5 Neut # (Auto) 2.5 Lymph # (Auto) 1.2 Williamson # (Auto) 0.5 Eos # (Auto) 0.1 Baso # (Auto) 0.0 Differential Comment Sodium 135 Potassium 4.2 Chloride 96 L Carbon Dioxide 31 H Anion Gap 11 BUN 7 Creatinine 0.6 L Est GFR ( Amer) > 60 Est GFR (Non-Af Amer) > 60 POC Glucose (mg/dL) > 500 H* Random Glucose 242 H D Calcium 9.0 Phosphorus 4.7 H Magnesium 1.5 L Total Bilirubin 0.4 AST 99 H D ALT 71 H D Alkaline Phosphatase 89 Total Protein 5.8 L Albumin 3.6 Globulin 2.1 L Albumin/Globulin Ratio 1.7 02/07/19 02/07/19 02/08/19 16:22 20:52 06:39 WBC RBC Hgb Hct MCV MCH MCHC RDW Plt Count MPV Neut % (Auto) Lymph % (Auto) Williamson % (Auto) Eos % (Auto) Baso % (Auto) Neut # (Auto) Lymph # (Auto) Williamson # (Auto) Eos # (Auto) Baso # (Auto) Differential Comment Sodium Potassium Chloride Carbon Dioxide Anion Gap BUN Creatinine Est GFR ( Amer) Est GFR (Non-Af Amer) POC Glucose (mg/dL) 246 H 225 H 123 H Random Glucose Calcium Phosphorus Magnesium Total Bilirubin AST ALT Alkaline Phosphatase Total Protein Albumin Globulin Albumin/Globulin Ratio Assessment & Plan - Assessment and Plan (Free Text) Assessment: 43yo female PMHx IDDM diagonosed 8-9 years ago presented with chest tightness that began 3-4 days ago. Patient admitted to telemetry for cardiac workup for ACS rule out. Endocrinology consulted for uncontrolled DM 1. Uncontrolled IDDM Likely 2/2 to medication noncompliance 2/2 to loss of insurance and inability to pay for medications. Patient' HgbA1c on this admission is 11.4 and from charts HgbA1c in July 2018 was 11.7. Patient's nausea and vomiting prior to admission likely secondary to uncontrolled DM. Currently patient on Lantus 40u hs, Novolog 12u ac, and RISS. Accuchecks noted and blood work reviewed. BG goal inpatient is 140-180 and outpatient is 90-130. Will continue to monitor closely. Agree with low dose ACEi. health promotion educator consulted. Patient on [facility] with [facility]. Hypoglycemia protocol in place as needed. Patient will need endocrine follow up as outpatient upon discharge. 2. Diabetic Neuropathy Likely secondary to IDDM. Patient started on Neurontin 300mg po hs as per prim lorena. Monitor and adjust. 3. Tobacco abuse Patient expressed interest in tobacco cessation. Counseled at bedside and smoking cessation consult in place. Endocrinology will continue to follow. Will discuss with Dr. Kapil Cantu PGY3
[2019-02-08 07:37] LABS: BASO % 0.6 % (0.0-2.0); EOS # 0.1 K/uL (0.0-0.7); EOS % 1.6 % (0.0-4.0); HEMOGLOBIN 13.4 g/dL (11.0-16.0); LYMPH # 1.3 K/uL (1.0-4.3); LYMPH % 28.3 % (20.0-40.0); MEAN CELL VOLUME 103.5 fL (81.0-99.0); MEAN CORPUSCULAR HEMOGLOBIN 34.3 pg (27.0-31.0); MEAN CORPUSCULAR HGB CONC 33.1 g/dL (33.0-37.0); MEAN PLATELET VOLUME 11.5 fL (7.2-11.7); MONO # 0.6 K/uL (0.0-0.8); MONO % 12.1 % (0.0-10.0); NEUT # 2.7 K/uL (1.8-7.0); NEUT % 57.4 % (50.0-75.0); NRBC % 0.1 % (0.0-2.0); RBC 3.9 Mil/uL (3.80-5.20); RED CELL DISTRIBUTION WIDTH 12.4 % (11.5-14.5); WHITE BLOOD COUNT 4.7 K/uL (4.8-10.8)
[2019-02-08 07:56] LABS: ALB/GLOB RATIO 1.6 (1.0-2.1); ALBUMIN 3.4 g/dL (3.5-5.0); ALT/SGPT 118 U/L (9-52); AST/SGOT 161 U/L (14-36); BLOOD UREA NITROGEN 10 mg/dL (7-17); CALCIUM 9.3 mg/dl (8.6-10.4); GFR NON-AFRICAN AMERICAN > 60
[2019-02-08] MEDS: (Novolog) Insulin Aspart, Recombinant 100 u/ml 10 ml vial SC SCH ×7 (08:23→21:08)
[2019-02-08] MEDS: Potassium Chloride 20 mEq ER Tab PO SCH (08:49)
[2019-02-08] MEDS ORDERED: Sodium Chloride 0.9% 1,000 ML IV ONE (08:52)
[2019-02-08 09:04] LABS: FOLATE 10.9 ng/mL
--- NOTE | 2019-02-08 09:09 | CP.PCM.PN ---
Subjective - Date & Time of Evaluation Date of Evaluation: 02/08/19 Time of Evaluation: 08:51 - Subjective Subjective: Merlin Denton, PGY-1, Cardiology Progress Note for Dr. Harris Patient was seen and evaluated at bedside. Patient was hypotensive overnight with systolic blood pressure in 90s and had headache overnight. Patient was given tylenol for headache with little relief. Patient this morning continued to report headache with sinus pain and congestion. Patient denied any chest pain, shortness of breath, nausea, left arm pain, jaw pain, dizziness. Objective - Vital Signs/Intake and Output Vital Signs (last 24 hours): Temp Pulse Resp BP Pulse Ox 97.6 F 83 20 90/62 L 97 02/08/19 00:37 02/08/19 04:45 02/08/19 00:37 02/08/19 00:50 02/08/19 00:37 Intake and Output: 02/08/19 02/08/19 06:59 18:59 Intake Total 800 Balance 800 - Medications Medications: Current Medications Aspirin (Ecotrin) 81 mg PO DAILY [facility] Last Admin: 02/07/19 09:55 Dose: 81 mg Dextrose (Dextrose 50% Inj) 0 ml IV STAT PRN; Protocol PRN Reason: Hypoglycemia Protocol Dextrose (Glutose 15) 0 gm PO ONCE PRN; Protocol PRN Reason: Hypoglycemia Protocol Enoxaparin Sodium (Lovenox) 40 mg SC DAILY [facility] Last Admin: 02/07/19 09:56 Dose: 40 mg Gabapentin (Neurontin) 300 mg PO [facility] Last Admin: 02/07/19 21:26 Dose: 300 mg Glucagon (Glucagen Diagnostic Kit) 0 mg IM STAT PRN; Protocol PRN Reason: Hypoglycemia Protocol Dextrose (Dextrose 5% In Water 1000 Ml) 1,000 mls @ 0 mls/hr IV .Q0M PRN; Protocol PRN Reason: Hypoglycemia Protocol Ibuprofen (Motrin Tab) 600 mg PO Q6H PRN PRN Reason: Pain, moderate (4-7) Last Admin: 02/08/19 03:03 Dose: 600 mg Insulin Aspart (Novolog) 0 unit SC ACHS [facility] Last Admin: 02/08/19 08:23 Dose: Not Given Insulin Aspart (Novolog) 12 unit SC AC [facility] Last Admin: 02/08/19 08:30 Dose: 12 units Insulin Glargine (Lantus) 40 unit SC HS [facility] Last Admin: 02/07/19 21:26 Dose: 40 unit Lisinopril (Zestril) 5 mg PO DAILY [facility] Last Admin: 02/07/19 09:55 Dose: 5 mg Metoprolol Succinate (Toprol Xl) 12.5 mg PO DAILY [facility] Last Admin: 02/07/19 11:46 Dose: 12.5 mg Morphine Sulfate (Morphine) 1 mg IVP Q6H PRN PRN Reason: Pain, severe (8-10) Last Admin: 02/07/19 14:29 Dose: 1 mg Pantoprazole Sodium (Protonix Ec Tab) 40 mg PO DAILY [facility] Last Admin: 02/07/19 09:55 Dose: 40 mg Potassium Chloride (K-Dur 20 Meq Er Tab) 40 meq PO BRK [facility] Last Admin: 02/08/19 08:49 Dose: 40 meq Rosuvastatin Calcium (Crestor) 20 mg PO HS [facility] Last Admin: 02/07/19 21:26 Dose: 20 mg - Labs Labs: 02/08/19 07:23 02/08/19 07:23 - Constitutional Appears: Well, Non-toxic, No Acute Distress - Head Exam Head Exam: ATRAUMATIC, NORMAL INSPECTION, NORMOCEPHALIC - Eye Exam Eye Exam: EOMI, PERRL - Neck Exam Neck Exam: Full ROM - Respiratory Exam Respiratory Exam: Clear to Ausculation Bilateral, NORMAL BREATHING PATTERN - Cardiovascular Exam Cardiovascular Exam: REGULAR RHYTHM, RRR Additional comments: reproducible chest pain though improved today - GI/Abdominal Exam GI & Abdominal Exam: Soft, Normal Bowel Sounds. absent: Tenderness - Extremities Exam Extremities Exam: Full ROM - Neurological Exam Neurological Exam: Alert, Awake, CN II-XII Intact, Oriented x3 - Skin Skin Exam: Dry, Intact Assessment and Plan - Assessment and Plan (Free Text) Assessment: Chest pain with ACS rule out Diabetes Mellitus type II Plan: Chest pain with ACS rule out Diabetes Mellitus type II Hypotensive EKG: sinus tachycardia with HR: 103 Echocardiogram: LVEF is 68% with normal biventricular function Troponinx3 was negative Hemoglobin A1c: 11.2 Lipid panel unremarkable Pain is unlikely cardiac in origin Medications: Aspirin 81 mg daily Lisinopril 5 mg daily Rosuvastatin 20 mg HS Toprol 12.5 mg daily Ibuprofen PRN for chest pain Started IV NS at 125cc/hr today and will monitor for improvement of blood pressure. Baseline blood pressure is 120s/80s with blood pressure in 90s/60s overnight
[2019-02-08] MEDS: Enoxaparin 40 mg Syringe SC SCH (09:55)
[2019-02-08] MEDS: Pantoprazole 40 mg EC Tab PO SCH (09:55)
[2019-02-08] MEDS: Metoprolol Succinate 12.5 mg XL Tab PO SCH (09:56)
--- NOTE | 2019-02-08 11:25 | CP.PCM.PN ---
Subjective - Date & Time of Evaluation Date of Evaluation: 02/08/19 Time of Evaluation: 11:25 - Subjective Subjective: Medicine Progress Note - Dr Natalie Casey's service Patient seen and examined at bedside. Per nursing patient with low blood pressures. Patient reported having a headache that improved with Tylenol. States that chest tightness has improved. Offers no other complaints at this time. Objective - Vital Signs/Intake and Output Vital Signs (last 24 hours): Temp Pulse Resp BP Pulse Ox 97.6 F 82 20 95/60 L 97 02/08/19 07:25 02/08/19 09:55 02/08/19 07:25 02/08/19 09:55 02/08/19 07:25 Intake and Output: 02/08/19 02/08/19 06:59 18:59 Intake Total 800 Balance 800 - Medications Medications: Current Medications Aspirin (Ecotrin) 81 mg PO DAILY [facility] Last Admin: 02/08/19 09:56 Dose: 81 mg Dextrose (Dextrose 50% Inj) 0 ml IV STAT PRN; Protocol PRN Reason: Hypoglycemia Protocol Dextrose (Glutose 15) 0 gm PO ONCE PRN; Protocol PRN Reason: Hypoglycemia Protocol Enoxaparin Sodium (Lovenox) 40 mg SC DAILY [facility] Last Admin: 02/08/19 09:55 Dose: 40 mg Gabapentin (Neurontin) 300 mg PO HS [facility] Last Admin: 02/07/19 21:26 Dose: 300 mg Glucagon (Glucagen Diagnostic Kit) 0 mg IM STAT PRN; Protocol PRN Reason: Hypoglycemia Protocol Dextrose (Dextrose 5% In Water 1000 Ml) 1,000 mls @ 0 mls/hr IV .Q0M PRN; Protocol PRN Reason: Hypoglycemia Protocol Sodium Chloride (Sodium Chloride 0.9%) 1,000 mls @ 125 mls/hr IV .Q8H ONE Stop: 02/08/19 16:51 Last Admin: 02/08/19 09:00 Dose: 125 mls/hr Ibuprofen (Motrin Tab) 600 mg PO Q6H PRN PRN Reason: Pain, moderate (4-7) Last Admin: 02/08/19 03:03 Dose: 600 mg Insulin Aspart (Novolog) 0 unit SC ACHS [facility] Last Admin: 02/08/19 08:23 Dose: Not Given Insulin Aspart (Novolog) 12 unit SC AC [facility] Last Admin: 02/08/19 08:30 Dose: 12 units Insulin Glargine (Lantus) 40 unit SC HS [facility] Last Admin: 02/07/19 21:26 Dose: 40 unit Lisinopril (Zestril) 5 mg PO DAILY [facility] Last Admin: 02/08/19 09:56 Dose: Not Given Metoprolol Succinate (Toprol Xl) 12.5 mg PO DAILY [facility] Last Admin: 02/08/19 09:56 Dose: Not Given Morphine Sulfate (Morphine) 1 mg IVP Q6H PRN PRN Reason: Pain, severe (8-10) Last Admin: 02/07/19 14:29 Dose: 1 mg Pantoprazole Sodium (Protonix Ec Tab) 40 mg PO DAILY [facility] Last Admin: 02/08/19 09:55 Dose: 40 mg Potassium Chloride (K-Dur 20 Meq Er Tab) 40 meq PO BRK [facility] Last Admin: 02/08/19 08:49 Dose: 40 meq Rosuvastatin Calcium (Crestor) 5 mg PO HS [facility] - Labs Labs: 02/08/19 07:23 02/08/19 07:23 - Constitutional Appears: Non-toxic, No Acute Distress - Head Exam Head Exam: ATRAUMATIC, NORMAL INSPECTION, NORMOCEPHALIC - Eye Exam Eye Exam: EOMI, Normal appearance - ENT Exam ENT Exam: Mucous Membranes Moist - Respiratory Exam Respiratory Exam: Clear to Ausculation Bilateral, NORMAL BREATHING PATTERN - Cardiovascular Exam Cardiovascular Exam: REGULAR RHYTHM, +S1, +S2 - GI/Abdominal Exam GI & Abdominal Exam: Soft, Normal Bowel Sounds - Extremities Exam Extremities Exam: Normal Inspection - Neurological Exam Neurological Exam: Alert, Awake, Oriented x3 Assessment and Plan - Assessment and Plan (Free Text) Assessment: Chest Tightness, ACS rule out -Monitor on telemetry -Troponins negative x 3 -Continue ASA 81mg and discontinued Plavix 75mg PO daily -Toprol XL 12.5mg PO daily, lisinopril 5mg PO daily -Echocardiogram showed normal biventricular function -Per cardio, symptoms likely not cardiac in origin -Cardiology on consult, Dr Harris, help appreciated Hypotension -Started on NS @ 125cc/hr -Hold Metoprolol dose and continue to monitor Diabetes Mellitus -Hemoglobin A1C 11.4 -Lantus 40 units HS, Novolog 12 units AC -Insulin sliding scale and accuchecks ACHS -Hypoglycemia protocol -Endocrine consulted, Dr Dick, help appreciated Peripheral neuropathy -Started on Gabapentin 300mg PO HS Macrocytosis -Vitamin B12 and folate WNL Elevated LFTs -Decreased Crestor to 5mg PO HS -F/U hepatitis panel Tobacco use -Patient counselled on tobacco cessation Dizziness -CT head: No acute intracranial abnormality. Mild chronic microvascular ischemic changes. Punctate hypodensity in the left basal ganglia suggestive for a prominent perivascular space versus punctate lacunar infarct. Clinical correlation. (see full report) Hypokalemia -Repleted, Continue to monitor GI/DVT ppx : Protonix 40mg PO daily Lovenox 40mg SC daily Plan discussed with Dr Natalie Hester DO PGY-2
--- NOTE | 2019-02-08 19:29 | CP.PCM.PN ---
Subjective - Date & Time of Evaluation Date of Evaluation: 02/08/19 Time of Evaluation: 09:30 - Subjective Subjective: clinically same Objective - Vital Signs/Intake and Output Vital Signs (last 24 hours): Temp Pulse Resp BP Pulse Ox 97.6 F 95 H 20 94/67 L 97 02/08/19 15:00 02/08/19 15:00 02/08/19 15:00 02/08/19 15:00 02/08/19 15:00 - Medications Medications: Current Medications Aspirin (Ecotrin) 81 mg PO DAILY [facility] Last Admin: 02/08/19 09:56 Dose: 81 mg Dextrose (Dextrose 50% Inj) 0 ml IV STAT PRN; Protocol PRN Reason: Hypoglycemia Protocol Dextrose (Glutose 15) 0 gm PO ONCE PRN; Protocol PRN Reason: Hypoglycemia Protocol Enoxaparin Sodium (Lovenox) 40 mg SC DAILY [facility] Last Admin: 02/08/19 09:55 Dose: 40 mg Gabapentin (Neurontin) 300 mg PO HS [facility] Last Admin: 02/07/19 21:26 Dose: 300 mg Glucagon (Glucagen Diagnostic Kit) 0 mg IM STAT PRN; Protocol PRN Reason: Hypoglycemia Protocol Dextrose (Dextrose 5% In Water 1000 Ml) 1,000 mls @ 0 mls/hr IV .Q0M PRN; Protocol PRN Reason: Hypoglycemia Protocol Ibuprofen (Motrin Tab) 600 mg PO Q6H PRN PRN Reason: Pain, moderate (4-7) Last Admin: 02/08/19 03:03 Dose: 600 mg Insulin Aspart (Novolog) 0 unit SC ACHS [facility] Last Admin: 02/08/19 16:22 Dose: Not Given Insulin Aspart (Novolog) 12 unit SC AC [facility] Last Admin: 02/08/19 17:05 Dose: 12 units Insulin Glargine (Lantus) 40 unit SC HS [facility] Last Admin: 02/07/19 21:26 Dose: 40 unit Lisinopril (Zestril) 5 mg PO DAILY [facility] Last Admin: 02/08/19 09:56 Dose: Not Given Metoprolol Succinate (Toprol Xl) 12.5 mg PO DAILY [facility] Last Admin: 02/08/19 09:56 Dose: Not Given Morphine Sulfate (Morphine) 1 mg IVP Q6H PRN PRN Reason: Pain, severe (8-10) Last Admin: 02/07/19 14:29 Dose: 1 mg Pantoprazole Sodium (Protonix Ec Tab) 40 mg PO DAILY [facility] Last Admin: 02/08/19 09:55 Dose: 40 mg Potassium Chloride (K-Dur 20 Meq Er Tab) 40 meq PO BRK [facility] Last Admin: 02/08/19 08:49 Dose: 40 meq Rosuvastatin Calcium (Crestor) 5 mg PO HS [facility] - Labs Labs: 02/08/19 07:23 02/08/19 07:23 - Constitutional Appears: Well - Head Exam Head Exam: ATRAUMATIC, NORMAL INSPECTION, NORMOCEPHALIC - Eye Exam Eye Exam: EOMI, Normal appearance, PERRL Pupil Exam: NORMAL ACCOMODATION, PERRL - ENT Exam ENT Exam: Mucous Membranes Moist, Normal Exam - Neck Exam Neck Exam: Full ROM, Normal Inspection. absent: Lymphadenopathy - Respiratory Exam Respiratory Exam: Decreased Breath Sounds - Cardiovascular Exam Cardiovascular Exam: REGULAR RHYTHM, +S1, +S2 - GI/Abdominal Exam GI & Abdominal Exam: Soft, Diminished Bowel Sounds - Rectal Exam Rectal Exam: Deferred
--- NOTE | 2019-02-08 19:43 | PN ---
DATE: 02/08/2019 ENDOCRINOLOGY FOLLOWUP NOTE LOCATION: Room 570. SUBJECTIVE: This is a 43-year-old female with recent uncontrolled type 2 insulin-requiring diabetes, presenting here with marked hyperglycemic accelerations and supervening diabetic ketoacidosis and has since then improved clinically and metabolically as noted thereof. She received vigorous IV hydration and intensive insulin therapy as given initially as noted. Her glycemic levels overnight have improved ranging from 123 to 130 mg/dL. LABORATORY DATA: Her chemistry showed a BUN of 10, sodium 137, potassium 4.4, chloride 101, CO2 of 31, glucose 94, and creatinine 0.7. ASSESSMENT: This is a 43-year-old female with uncontrolled and decompensated type 2 insulin-requiring diabetes with recent drug omission from loss of medical insurance and now has new insurance capability with coverage of her insulin regimen as noted. PLAN OF MANAGEMENT: We will modify her current basal and bolus insulin regimen and increase the NovoLog to 12 units t.i.d. before meals to start today as ordered. We will also continue the basal insulin given as Lantus at 40 units subcutaneous at bedtime daily to start tonight. We will modify the coverage scale to obviate hypoglycemia and detailed orders have been given. We will obtain serial chemistries and supplement accordingly as needed. We will also continue the IV hydration as given and obtain serial chemistries accordingly. We will follow and advise accordingly. Abby Dick MD
[2019-02-08] MEDS: (Lantus) Insulin Glargine, Recombinant SC SCH (21:22)
--- NOTE | 2019-02-09 07:05 | CP.PCM.PN ---
Subjective - Date & Time of Evaluation Date of Evaluation: 02/09/19 Time of Evaluation: 07:05 - Subjective Subjective: Pgy3 Internal Medicine Resident Endocrinology Progress note for Dr. Dick Patient seen and examined at bedside. No acute events overnight as per nursing. Patient continues to complain of mild chest tightness and neuropathic pains in her b/l lower extremities. Patient denied fever, chills, headache, dizziness, S OB, cough, abd pain, nausea, vomiting, bowel/bladder complaints. Objective - Vital Signs/Intake and Output Vital Signs (last 24 hours): Temp Pulse Resp BP Pulse Ox 97.9 F 93 H 18 115/72 97 02/08/19 23:35 02/09/19 04:00 02/08/19 23:35 02/08/19 23:35 02/08/19 23:35 - Medications Medications: Current Medications Aspirin (Ecotrin) 81 mg PO DAILY [facility] Last Admin: 02/08/19 09:56 Dose: 81 mg Dextrose (Dextrose 50% Inj) 0 ml IV STAT PRN; Protocol PRN Reason: Hypoglycemia Protocol Dextrose (Glutose 15) 0 gm PO ONCE PRN; Protocol PRN Reason: Hypoglycemia Protocol Enoxaparin Sodium (Lovenox) 40 mg SC DAILY [facility] Last Admin: 02/08/19 09:55 Dose: 40 mg Gabapentin (Neurontin) 300 mg PO HS [facility] Last Admin: 02/08/19 21:21 Dose: 300 mg Glucagon (Glucagen Diagnostic Kit) 0 mg IM STAT PRN; Protocol PRN Reason: Hypoglycemia Protocol Dextrose (Dextrose 5% In Water 1000 Ml) 1,000 mls @ 0 mls/hr IV .Q0M PRN; Protocol PRN Reason: Hypoglycemia Protocol Ibuprofen (Motrin Tab) 600 mg PO Q6H PRN PRN Reason: Pain, moderate (4-7) Last Admin: 02/08/19 03:03 Dose: 600 mg Insulin Aspart (Novolog) 0 unit SC ACHS [facility] Last Admin: 02/08/19 21:08 Dose: Not Given Insulin Aspart (Novolog) 12 unit SC AC [facility] Last Admin: 02/08/19 17:05 Dose: 12 units Insulin Glargine (Lantus) 40 unit SC HS [facility] Last Admin: 02/08/19 21:22 Dose: 40 unit Lisinopril (Zestril) 5 mg PO DAILY [facility] Last Admin: 02/08/19 09:56 Dose: Not Given Metoprolol Succinate (Toprol Xl) 12.5 mg PO DAILY [facility] Last Admin: 02/08/19 09:56 Dose: Not Given Morphine Sulfate (Morphine) 1 mg IVP Q6H PRN PRN Reason: Pain, severe (8-10) Last Admin: 02/08/19 21:28 Dose: 1 mg Pantoprazole Sodium (Protonix Ec Tab) 40 mg PO DAILY [facility] Last Admin: 02/08/19 09:55 Dose: 40 mg Potassium Chloride (K-Dur 20 Meq Er Tab) 40 meq PO BRK [facility] Last Admin: 02/08/19 08:49 Dose: 40 meq Rosuvastatin Calcium (Crestor) 5 mg PO HS [facility] Last Admin: 02/08/19 21:21 Dose: 5 mg - Labs Labs: 02/08/19 07:23 02/08/19 07:23 - Additional Findings Additional findings: - Constitutional Appears: Non-toxic, No Acute Distress - Head Exam Head Exam: ATRAUMATIC, NORMAL INSPECTION, NORMOCEPHALIC - Eye Exam Eye Exam: EOMI, Normal appearance, PERRL. absent: Conjunctival injection, Scleral icterus - ENT Exam ENT Exam: Mucous Membranes Moist - Neck Exam Neck exam: Positive for: Full Rom, Normal Inspection - Respiratory Exam Respiratory Exam: Clear to Auscultation Bilateral, NORMAL BREATHING PATTERN. absent: Accessory Muscle Use, Rales, Rhonchi, Wheezes - Cardiovascular Exam Cardiovascular Exam: REGULAR RHYTHM, +S1, +S2. absent: Systolic Murmur - GI/Abdominal Exam GI & Abdominal Exam: Normal Bowel Sounds, Soft. absent: Firm, Guarding, Rigid, Tenderness - Extremities Exam Extremities exam: Positive for: normal capillary refill, normal inspection, pedal pulses present. Negative for: pedal edema - Back Exam Back exam: NORMAL INSPECTION. absent: rash noted - Neurological Exam Neurological exam: Alert, CN II-XII Intact, Oriented x3 - Psychiatric Exam Psychiatric exam: Normal Affect, Normal Mood - Skin Skin Exam: Dry, Intact, Normal Color, Warm Assessment and Plan - Assessment and Plan (Free Text) Assessment: 43yo female PMHx IDDM diagonosed 8-9 years ago presented with chest tightness that began 3-4 days ago. Patient admitted to telemetry for cardiac workup for ACS rule out. Endocrinology consulted for uncontrolled DM Plan: 1. Uncontrolled IDDM Likely 2/2 to medication noncompliance 2/2 to loss of insurance and inability to pay for medications. Patient' HgbA1c on this admission is 11.4 and from charts HgbA1c in July 2018 was 11.7. Patient's nausea and vomiting prior to admission likely secondary to uncontrolled DM. Currently patient on Lantus 40u hs, Novolog 12u ac, and RISS. Accuchecks noted and blood work reviewed. BG goal inpatient is 140-180 and outpatient is 90-130. Will continue to monitor closely. Agree with low dose ACEi. conservation educator consulted. Patient on [facility] with [facility]. Hypoglycemia protocol in place as needed. Patient will need endocrine follow up as outpatient upon discharge. 2. Diabetic Neuropathy Likely secondary to IDDM. Patient started on Neurontin 300mg po hs as per primary. Monitor and adjust. 3. Tobacco abuse Patient expressed interest in tobacco cessation. Counseled at bedside and smoking cessation consult in place. Discussed with Dr. Kapil Cantu PGY3
--- NOTE | 2019-02-09 07:54 | CP.PCM.PN ---
Subjective - Date & Time of Evaluation Date of Evaluation: 02/09/19 Time of Evaluation: 13:46 - Subjective Subjective: Patient seen and examined at bedside. No overnight events reported. Complains of sharp distal Lower Extremity Pain. She denies any fever, chest pain, SOB, abdominal pain, n/v, changes in bowel habits, or urinary symptoms. Objective - Vital Signs/Intake and Output Vital Signs (last 24 hours): Temp Pulse Resp BP Pulse Ox 97.9 F 93 H 18 115/72 97 02/08/19 23:35 02/09/19 04:00 02/08/19 23:35 02/08/19 23:35 02/08/19 23:35 - Medications Medications: Current Medications Aspirin (Ecotrin) 81 mg PO DAILY [facility] Last Admin: 02/08/19 09:56 Dose: 81 mg Dextrose (Dextrose 50% Inj) 0 ml IV STAT PRN; Protocol PRN Reason: Hypoglycemia Protocol Dextrose (Glutose 15) 0 gm PO ONCE PRN; Protocol PRN Reason: Hypoglycemia Protocol Enoxaparin Sodium (Lovenox) 40 mg SC DAILY [facility] Last Admin: 02/08/19 09:55 Dose: 40 mg Gabapentin (Neurontin) 300 mg PO HS [facility] Last Admin: 02/08/19 21:21 Dose: 300 mg Glucagon (Glucagen Diagnostic Kit) 0 mg IM STAT PRN; Protocol PRN Reason: Hypoglycemia Protocol Dextrose (Dextrose 5% In Water 1000 Ml) 1,000 mls @ 0 mls/hr IV .Q0M PRN; Protocol PRN Reason: Hypoglycemia Protocol Ibuprofen (Motrin Tab) 600 mg PO Q6H PRN PRN Reason: Pain, moderate (4-7) Last Admin: 02/08/19 03:03 Dose: 600 mg Insulin Aspart (Novolog) 0 unit SC ACHS [facility] Last Admin: 02/08/19 21:08 Dose: Not Given Insulin Aspart (Novolog) 12 unit SC AC [facility] Last Admin: 02/08/19 17:05 Dose: 12 units Insulin Glargine (Lantus) 40 unit SC HS [facility] Last Admin: 02/08/19 21:22 Dose: 40 unit Lisinopril (Zestril) 5 mg PO DAILY [facility] Last Admin: 02/08/19 09:56 Dose: Not Given Metoprolol Succinate (Toprol Xl) 12.5 mg PO DAILY [facility] Last Admin: 02/08/19 09:56 Dose: Not Given Morphine Sulfate (Morphine) 1 mg IVP Q6H PRN PRN Reason: Pain, severe (8-10) Last Admin: 02/08/19 21:28 Dose: 1 mg Pantoprazole Sodium (Protonix Ec Tab) 40 mg PO DAILY [facility] Last Admin: 02/08/19 09:55 Dose: 40 mg Potassium Chloride (K-Dur 20 Meq Er Tab) 40 meq PO BRK [facility] Last Admin: 02/08/19 08:49 Dose: 40 meq Rosuvastatin Calcium (Crestor) 5 mg PO HS [facility] Last Admin: 02/08/19 21:21 Dose: 5 mg - Labs Labs: 02/08/19 07:23 02/08/19 07:23 - Additional Findings Additional findings: - Constitutional Appears: Non-toxic, No Acute Distress - Head Exam Head Exam: ATRAUMATIC, NORMAL INSPECTION, NORMOCEPHALIC - Eye Exam Eye Exam: EOMI, Normal appearance, PERRL. absent: Conjunctival injection, Scleral icterus - ENT Exam ENT Exam: Mucous Membranes Moist - Neck Exam Neck exam: Positive for: Full Rom, Normal Inspection - Respiratory Exam Respiratory Exam: Clear to Auscultation Bilateral, NORMAL BREATHING PATTERN. absent: Accessory Muscle Use, Rales, Rhonchi, Wheezes - Cardiovascular Exam Cardiovascular Exam: REGULAR RHYTHM, +S1, +S2. absent: Systolic Murmur - GI/Abdominal Exam GI & Abdominal Exam: Normal Bowel Sounds, Soft. absent: Firm, Guarding, Rigid, Tenderness - Extremities Exam Extremities exam: Positive for: normal capillary refill, normal inspection, pedal pulses present. Negative for: pedal edema - Back Exam Back exam: NORMAL INSPECTION. absent: rash noted - Neurological Exam Neurological exam: Alert, CN II-XII Intact, Oriented x3, Sensory Deficit in plantar aspect of feet b/l. - Psychiatric Exam Psychiatric exam: Normal Affect, Normal Mood - Skin Skin Exam: Dry, Intact, Normal Color, Warm Assessment and Plan - Assessment and Plan (Free Text) Assessment: 43 year old female with PMHx of Diabetes admitted for evaluation and treatment of chest pain to rule out ACS. Plan: Chest Tightness, ACS rule out -Monitor on telemetry -Troponins negative x 3 -Continue ASA 81mg and discontinued Plavix 75mg PO daily -Toprol XL 12.5mg PO daily, lisinopril 5mg PO daily -Echocardiogram showed normal biventricular function -Per cardio, symptoms likely not cardiac in origin -Cardiology on consult, Dr Harris, help appreciated Hypotension (Resolved) -Started on NS @ 125cc/hr -Hold Metoprolol dose and continue to monitor Diabetes Mellitus -Hemoglobin A1C 11.4 -Lantus 40 units HS, Novolog 12 units AC -Insulin sliding scale and accuchecks ACHS -Hypoglycemia protocol -Endocrine consulted, Dr Dick, help appreciated Peripheral neuropathy -Started on Gabapentin 300mg PO Q12H Macrocytosis -Vitamin B12 and folate WNL Elevated LFTs -Decreased Crestor to 5mg PO HS -Hepatitis Panel Negative. Tobacco use -Patient counselled on tobacco cessation Dizziness -CT head: No acute intracranial abnormality. Mild chronic microvascular ischemic changes. Punctate hypodensity in the left basal ganglia suggestive for a prominent perivascular space versus punctate lacunar infarct. Clinical correlation. (see full report) Hypokalemia -Repleted, Continue to monitor GI/DVT ppx : Protonix 40mg PO daily Lovenox 40mg SC daily Plan discussed with Dr. Kathya Galdamez, PGY-2 Dispo: Patient to be dicharged today. She is to follow up tomorrow with Dr. Kathya Casey. SHe is to also follow up with Dr. Dick. She will go home with Lantus 40 Units HS, Novolog 12 Units AC.
[2019-02-09 08:01] LABS: EOS # 0.1 K/uL (0.0-0.7); MEAN CELL VOLUME 105.3 fL (81.0-99.0); MEAN CORPUSCULAR HGB CONC 32.9 g/dL (33.0-37.0); RBC 3.97 Mil/uL (3.80-5.20); WHITE BLOOD COUNT 5.4 K/uL (4.8-10.8)
[2019-02-09 08:08] LABS: BASO % 0.6 % (0.0-2.0); EOS % 1.5 % (0.0-4.0); HEMOGLOBIN 13.8 g/dL (11.0-16.0); LYMPH # 1.4 K/uL (1.0-4.3); LYMPH % 26.5 % (20.0-40.0); MEAN CORPUSCULAR HEMOGLOBIN 34.7 pg (27.0-31.0); MEAN PLATELET VOLUME 11.6 fL (7.2-11.7); MONO # 0.7 K/uL (0.0-0.8); MONO % 12.6 % (0.0-10.0); NEUT # 3.2 K/uL (1.8-7.0); NEUT % 58.8 % (50.0-75.0); NRBC % 0.2 % (0.0-2.0); RED CELL DISTRIBUTION WIDTH 13.1 % (11.5-14.5)
[2019-02-09] MEDS: (Novolog) Insulin Aspart, Recombinant 100 u/ml 10 ml vial SC SCH ×4 (08:30→12:30)
[2019-02-09 08:32] LABS: ALB/GLOB RATIO 1.7 (1.0-2.1); ALBUMIN 3.8 g/dL (3.5-5.0); ALT/SGPT 119 U/L (9-52); AST/SGOT 130 U/L (14-36); BLOOD UREA NITROGEN 8 mg/dL (7-17); CALCIUM 9.2 mg/dl (8.6-10.4); GFR NON-AFRICAN AMERICAN > 60
[2019-02-09 08:35] VITALS: RESP 20; TEMP 97.5; O2SAT 100
--- NOTE | 2019-02-09 08:49 | CP.PCM.PN ---
Subjective - Date & Time of Evaluation Date of Evaluation: 02/09/19 Time of Evaluation: 08:46 - Subjective Subjective: Merlin Denton, PGY-1, Cardiology Progress Note for Dr. Harris Patient was seen and evaluated at bedside this morning. Patient had no acute overnight events. Patient's blood pressure improved with systolic blood pressure 107-115 after lopressor was held. Patient today reports improved headache and has resolved chest pain. Patient has no other complaints at this time. Objective - Vital Signs/Intake and Output Vital Signs (last 24 hours): Temp Pulse Resp BP Pulse Ox 97.5 F L 87 20 107/74 100 02/09/19 07:42 02/09/19 07:42 02/09/19 07:42 02/09/19 07:42 02/09/19 07:42 - Medications Medications: Current Medications Aspirin (Ecotrin) 81 mg PO DAILY [facility] Last Admin: 02/08/19 09:56 Dose: 81 mg Dextrose (Dextrose 50% Inj) 0 ml IV STAT PRN; Protocol PRN Reason: Hypoglycemia Protocol Dextrose (Glutose 15) 0 gm PO ONCE PRN; Protocol PRN Reason: Hypoglycemia Protocol Enoxaparin Sodium (Lovenox) 40 mg SC DAILY [facility] Last Admin: 02/08/19 09:55 Dose: 40 mg Gabapentin (Neurontin) 300 mg PO HS [facility] Last Admin: 02/08/19 21:21 Dose: 300 mg Glucagon (Glucagen Diagnostic Kit) 0 mg IM STAT PRN; Protocol PRN Reason: Hypoglycemia Protocol Dextrose (Dextrose 5% In Water 1000 Ml) 1,000 mls @ 0 mls/hr IV .Q0M PRN; Protocol PRN Reason: Hypoglycemia Protocol Ibuprofen (Motrin Tab) 600 mg PO Q6H PRN PRN Reason: Pain, moderate (4-7) Last Admin: 02/08/19 03:03 Dose: 600 mg Insulin Aspart (Novolog) 0 unit SC ACHS [facility] Last Admin: 02/08/19 21:08 Dose: Not Given Insulin Aspart (Novolog) 12 unit SC AC [facility] Last Admin: 02/08/19 17:05 Dose: 12 units Insulin Glargine (Lantus) 40 unit SC HS [facility] Last Admin: 02/08/19 21:22 Dose: 40 unit Lisinopril (Zestril) 5 mg PO DAILY [facility] Last Admin: 02/08/19 09:56 Dose: Not Given Metoprolol Succinate (Toprol Xl) 12.5 mg PO DAILY [facility] Last Admin: 02/08/19 09:56 Dose: Not Given Morphine Sulfate (Morphine) 1 mg IVP Q6H PRN PRN Reason: Pain, severe (8-10) Last Admin: 02/08/19 21:28 Dose: 1 mg Pantoprazole Sodium (Protonix Ec Tab) 40 mg PO DAILY [facility] Last Admin: 02/08/19 09:55 Dose: 40 mg Potassium Chloride (K-Dur 20 Meq Er Tab) 40 meq PO BRK [facility] Last Admin: 02/08/19 08:49 Dose: 40 meq Rosuvastatin Calcium (Crestor) 5 mg PO HS [facility] Last Admin: 02/08/19 21:21 Dose: 5 mg - Labs Labs: 02/09/19 07:40 02/09/19 07:40 - Constitutional Appears: Well, Non-toxic, No Acute Distress - Head Exam Head Exam: ATRAUMATIC, NORMAL INSPECTION, NORMOCEPHALIC - Eye Exam Eye Exam: EOMI, PERRL - ENT Exam ENT Exam: Mucous Membranes Moist - Neck Exam Neck Exam: Full ROM - Respiratory Exam Respiratory Exam: Clear to Ausculation Bilateral, NORMAL BREATHING PATTERN. absent: Rales, Rhonchi, Wheezes - Cardiovascular Exam Cardiovascular Exam: REGULAR RHYTHM, RRR, +S1, +S2. absent: Murmur - GI/Abdominal Exam GI & Abdominal Exam: Soft, Normal Bowel Sounds. absent: Tenderness - Extremities Exam Extremities Exam: Full ROM, Normal Capillary Refill. absent: Pedal Edema - Neurological Exam Neurological Exam: Alert, Awake, CN II-XII Intact, Oriented x3 - Skin Skin Exam: Dry, Intact, Normal Color Assessment and Plan - Assessment and Plan (Free Text) Assessment: Chest pain with ACS rule out Diabetes Mellitus type II Hypotension-resolved Plan: Chest pain with ACS rule out Diabetes Mellitus type II Hypotension-resolved EKG: sinus tachycardia with HR: 103 Echocardiogram: LVEF is 68% with normal biventricular function Troponinx3 was negative Hemoglobin A1c: 11.2 Lipid panel unremarkable Patient should follow up outpatient with Dr. Harris for outpatient stress test. Pain is unlikely cardiac in origin Medications: Aspirin 81 mg daily Lisinopril 5 mg daily Rosuvastatin 20 mg HS Toprol 12.5 mg daily stopped due to hypotension Ibuprofen PRN for chest pain
[2019-02-09 08:58] LABS: HEPATITIS B SURFACE AG Negative (NEGATIVE)
[2019-02-09] MEDS: Potassium Chloride 20 mEq ER Tab PO SCH (09:00)
[2019-02-09 09:04] LABS: HEPATITIS A IGM NEGATIVE (NEGATIVE); HEPATITIS B CORE AB NEGATIVE (NEGATIVE)
[2019-02-09 09:15] LABS: HEPATITIS C ANTIBODY NEGATIVE (NEGATIVE)
[2019-02-09] MEDS: Enoxaparin 40 mg Syringe SC SCH (09:30)
[2019-02-09] MEDS: Pantoprazole 40 mg EC Tab PO SCH (09:30)
[2019-02-09 09:31] VITALS: BP 100/66
[2019-02-09 12:21] VITALS: PULSE 96
--- NOTE | 2019-02-09 21:27 | PN ---
DATE: 02/09/2019 ENDOCRINOLOGY FOLLOWUP NOTE LOCATION: Room 570. This is a 43-year-old female with recent uncontrolled type 2 insulin-requiring diabetes, presenting here with marked hyperglycemic accelerations and is now being followed closely for metabolic management. Her glycemic levels are fluctuating but improved, and the glucose levels overnight have ranged from 143 to 247 mg/dL. Her chemistry showed a BUN of 8, sodium 137, potassium 4.4, chloride 99, CO2 of 33, glucose 124, creatinine 0.5. So at this time, we will modify once again her basal and bolus insulin regimen and increase the NovoLog to 12 units t.i.d. before meals to start today as ordered. We will continue the basal insulin given as Lantus at 40 units subcu at bedtime daily as given. We will titrate incrementally as indicated to optimize metabolic control. We will obtain serial chemistries and supplement accordingly as needed. We will follow. Abby Dick MD
== END 2019-02-09 15:40 | disposition home or self-care (01) | DRG 639 ==
LOC: C.ER 10:54 → C.9E 13:56 → C.5S 14:27
PROVIDERS: ADMIT Internal Medicine Nephrology; ATTEND Internal Medicine Nephrology
DX: E11.10 Type 2 diabetes mellitus with ketoacidosis without coma (principal); E11.40 Type 2 diabetes mellitus with diabetic neuropathy, unspecified; E78.5 Hyperlipidemia, unspecified; E87.6 Hypokalemia; F17.210 Nicotine dependence, cigarettes, uncomplicated; I10 Essential (primary) hypertension; R07.89 Other chest pain; E11.65 Type 2 diabetes mellitus with hyperglycemia; Z79.4 Long term (current) use of insulin; Z91.138 Patient's unintentional underdosing of medication regimen for other reason